=== PATIENT | female | born 1950 | race Caucasian/White ===

== ENCOUNTER 2021-01-15 11:33 | Emergency (ER) | payer MEDICARE, SELFPAY ==
[2021-01-15 11:59] VITALS: BP 136/78; PULSE 73; RESP 18; TEMP 36.6; O2SAT 96; BMI 35.7
--- NOTE | 2021-01-15 13:58 | ED.ANXIETY ---
HPI - Anxiety General Chief Complaint: Anxiety Stated Complaint: med reaction Time Seen by Provider: 01/15/21 13:04 Source: patient Mode of arrival: ambulatory Limitations: no limitations History of Present Illness HPI narrative: Patient presents to ED for severe anxiety and insomnia. Patient states he is severely anxious because she was placed on Suboxone for the past 5 weeks due to years of opiate dependence due to chronic pain management with narcotics. Patient states for the past 5 weeks every time she takes Suboxone she feels nauseous and makes him more anxious. Patient states she is scared to go back home to be alone. Patient admits to history of severe anxiety. Related Data Allergies Allergy/AdvReac Type Severity Reaction Status Date / Time alendronate sodium [Fosamax] AdvReac Unknown increased Verified 09/28/16 00:00 pain antidepressants Allergy Unknown N/V Uncoded 09/28/16 00:00 Mobic Allergy Unknown eye pain Uncoded 09/28/16 00:00 Review of Systems Review of Systems: Yes all other systems are reviewed and are negative Constitutional: Constitutional: Reports as per HPI and Reports no additional constitutional complaints Eyes: Eyes: Reports as per HPI and Reports no additional eye complaints ENT: Reports system reviewed and no additional complaints, except as documented and Reports as per HPI Cardiovascular: Cardiovascular: Reports as per HPI and Reports no additional cardiovascular complaints Respiratory: Respiratory: Reports as per HPI and Reports no additional respiratory complaints Gastrointestinal: Gastrointestinal: Reports as per HPI and Reports no additional gastrointestinal complaints Genitourinary: Genitourinary: Reports no additional female genitourinary complaints and Reports as per HPI Musculoskeletal: Musculoskeletal: Reports no additional musculoskeletal complaints and Reports as per HPI Integumentary/Breasts: Skin/Breast: Reports system reviewed and no additional complaints, except as docu and Reports as per HPI Neurologic: Reports system reviewed and no additional complaints, except as documented and Reports as per HPI Psychiatric: Psychiatric: Reports no additional psychiatric complaints and Reports as per HPI Comments: Anxiety PMFSH Past Medical History Medical History (Updated 01/15/21 @ 16:57 by JULY Mcdowell) Arthritis HLD (hyperlipidemia) HTN (hypertension) Muscle spasm of back Scoliosis Spinal arthritis Spinal stenosis Surgical History (Updated 01/15/21 @ 12:03 by Enrico Godinez) H/O spinal fusion Social History Social History Advance Directives: Yes Advance Directives Information Provided: No Advance Directives on File: No Physical Exam Vital Signs: Vital Signs: Last Vital Signs Temp 98.5 F 01/15/21 15:40 Pulse 76 01/15/21 15:40 Resp 16 01/15/21 15:40 BP 142/78 H 01/15/21 15:40 Pulse Ox 97 01/15/21 15:40 Body Mass Index 35.7 Const: General: cooperative, healthy appearing, comfortable, no acute distress, well developed, alert and awake Orientation/consciousness: patient oriented x3 HENMT: Head: Yes normal to inspection, Yes No palpable skull fracture present, Yes normocephalic and Yes atraumatic Eyes: General: appearance normal, both eyes and all related structures Neck: Neck: Yes normal visual inspection, Yes full ROM, Yes no lymphadenopathy, Yes no meningeal signs, Yes trachea midline, Yes supple and No tender Chest: Chest palpation & inspection: normal inspection of the chest and normal palpation of entire chest wall Resp: Effort & Inspection: normal respiratory effort and able to speak in complete sentences Auscultation: clear to auscultation bilaterally Cardio: Jugular venous distension: no JVD Heart sounds: S1 normal heart sound present and S2 normal heart sound present GI: Inspection: Yes normal to inspection and No abdominal wall ecchymosis Palpation (GI): Soft to palpation, not firm, nontender, no guarding and not rigid : General: No CVA tenderness and Yes no CVA tenderness Back/Spine/Pelvis: Back: no CVA tenderness, No CVA tenderness and No back tenderness Skin: General skin exam: no rashes or lesions noted Neuro: Other: . Negative facial droop. Negative slurred speech. Negative pronator drift. All extremities equal strength 5+. [id number] and rapid hand movement intact. Negative Romberg General: patient oriented x3, gait normal, tone normal, no meningeal signs and CN's II-XI intact bilaterally Cranial nerves: Yes CN's II-XII intact bilaterally Extrem: General: Yes normal to inspection and Yes full ROM Psych: Other: Extremely anxious Appearance: grossly normal and well kempt Course Course Course Narrative: Food to baseline medical evaluation. Will contact [facility] steam turbine operator and [place] the professional athletes coach will evaluate patient Reevaluation(s) Reevaluation #1: EKG negative for STEMI. Troponin negative. UA negative for urinary tract infection. Negative for any neuro deficits. Patient does not need CT scan. Patient has normal gait. Care team consulted Donal states patient could be discharged and will refer her to partial hospitalization. 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 Patient will likely be discharged and states that she has a safe plan for her discharge. Patient states her children will peanut picker and will be staying with her. Patient denies any physical complaints. Time: 16:46 MDM - Anxiety MDM Narrative Medical decision making narrative: Anxiety. Lab Data Result diagrams: 01/15/21 14:06 01/15/21 14:06 Labs: Lab Results 01/15/21 01/15/21 01/15/21 Range/Units 14:06 14:06 14:06 WBC 6.5 (4.8-10.8) X10*3/uL RBC 4.57 (4.20-5.50) X10*6/uL Hgb 13.4 (12.0-16.0) g/dl Hct 41.1 (37-47) % MCV 89.9 (80-98) fL MCH 29.3 (27.0-33.0) pg MCHC 32.6 (31.0-35.0) g/dl RDW 11.9 (11.0-16.0) % Plt Count 284 (160-400) X10*3/uL MPV 9.7 (9.4-12.3) fL Immature Gran % (Auto) 0.3 (0.0-0.4) % Neut % (Auto) 64.9 (45-73) % Lymph % (Auto) 25.2 (20-40) % [place] % (Auto) 8.0 (2-11) % Eos % (Auto) 1.1 (0-4) % Baso % (Auto) 0.5 (0-2) % Lymph # (Auto) 1.7 (1.2-4.9) X10*3/uL [place] # (Auto) 0.5 (0.1-1.2) X10*3/uL Eos # (Auto) 0.1 (0.0-0.4) X10*3/uL Baso # (Auto) 0.0 (0.0-0.2) X10*3/uL Abs Immat Gran (auto) 0.02 (0.00-0.03) X10*3/uL Absolute Neuts (auto) 4.3 (2.0-8.3) X10*3/uL Absolute Nucleated RBC 0.000 (0.0-0.012) X10*3/uL Nucleated RBC % (auto) 0.0 (0.0-0.2) /100WBC PT (9.9-13.0) SEC INR (0.9-1.1) APTT (24.1-38.0) SEC Sodium 139 (135-145) mmol/L Potassium 4.3 (3.3-5.1) mmol/L Chloride 104 (96-108) mmol/L Carbon Dioxide 28 (22-29) mmol/L Anion Gap 11 L (12-20) BUN 12 (9-16) mg/dL Creatinine 0.69 (0.5-1.4) mg/dL Estim Creat Clear Calc 73.4 Estimated GFR > 60 Random Glucose 101 (60-115) mg/dL Calcium 8.9 (8.4-10.2) mg/dL Total Bilirubin 0.7 0.7 (0.0-1.0) mg/dL Direct Bilirubin 0.3 (0.0-0.5) mg/dL AST 25 25 (5-31) U/L ALT 29 29 (0-31) U/L Alkaline Phosphatase 108 106 (39-117) U/L Troponin I High Sens (<3.5-17.0) ng/L Total Protein 6.1 L 6.1 L (6.5-8.0) g/dL Albumin 4.0 4.0 (3.5-5.0) g/dL Urine Color Urine Appearance Urine pH (5.0-8.0) Ur Specific [place] (1.005-1.025) Urine Protein (NEG-TRACE) MG/DL Urine Glucose (UA) (NEG) MG/DL Urine Ketones (NEG) MG/DL Urine Blood (NEG) Urine Nitrite (NEG) Ur Leukocyte Esterase (NEG) Urine Opiates Screen (Not Detect) Ur Barbiturates Screen (Not Detect) Ur Phencyclidine Scrn (Not Detect) Ur Amphetamines Screen (Not Detect) U Benzodiazepines Scrn (Not Detect) Urine Cocaine Screen (Not Detect) U Marijuana (THC) Screen (Not Detect) 08/08/21 08/08/21 08/08/21 Range/Units 14:09 14:09 16:07 WBC (4.8-10.8) X10*3/uL RBC (4.20-5.50) X10*6/uL Hgb (12.0-16.0) g/dl Hct (37-47) % MCV (80-98) fL MCH (27.0-33.0) pg MCHC (31.0-35.0) g/dl RDW (11.0-16.0) % Plt Count (160-400) X10*3/uL MPV (9.4-12.3) fL Immature Gran % (Auto) (0.0-0.4) % Neut % (Auto) (45-73) % Lymph % (Auto) (20-40) % [place] % (Auto) (2-11) % Eos % (Auto) (0-4) % Baso % (Auto) (0-2) % Lymph # (Auto) (1.2-4.9) X10*3/uL [place] # (Auto) (0.1-1.2) X10*3/uL Eos # (Auto) (0.0-0.4) X10*3/uL Baso # (Auto) (0.0-0.2) X10*3/uL Abs Immat Gran (auto) (0.00-0.03) X10*3/uL Absolute Neuts (auto) (2.0-8.3) X10*3/uL Absolute Nucleated RBC (0.0-0.012) X10*3/uL Nucleated RBC % (auto) (0.0-0.2) /100WBC PT 11.2 (9.9-13.0) SEC INR 1.0 (0.9-1.1) APTT 35.0 (24.1-38.0) SEC Sodium (135-145) mmol/L Potassium (3.3-5.1) mmol/L Chloride (96-108) mmol/L Carbon Dioxide (22-29) mmol/L Anion Gap (12-20) BUN (9-16) mg/dL Creatinine (0.5-1.4) mg/dL Estim Creat Clear Calc Estimated GFR Random Glucose (60-115) mg/dL Calcium (8.4-10.2) mg/dL Total Bilirubin (0.0-1.0) mg/dL Direct Bilirubin (0.0-0.5) mg/dL AST (5-31) U/L ALT (0-31) U/L Alkaline Phosphatase (39-117) U/L Troponin I High Sens < 3.5 (<3.5-17.0) ng/L Total Protein (6.5-8.0) g/dL Albumin (3.5-5.0) g/dL Urine Color Urine Appearance Urine pH (5.0-8.0) Ur Specific [place] (1.005-1.025) Urine Protein (NEG-TRACE) MG/DL Urine Glucose (UA) (NEG) MG/DL Urine Ketones (NEG) MG/DL Urine Blood (NEG) Urine Nitrite (NEG) Ur Leukocyte Esterase (NEG) Urine Opiates Screen Not Detected (Not Detect) Ur Barbiturates Screen Not Detected (Not Detect) Ur Phencyclidine Scrn Not Detected (Not Detect) Ur Amphetamines Screen Not Detected (Not Detect) U Benzodiazepines Scrn Not Detected (Not Detect) Urine Cocaine Screen Not Detected (Not Detect) U Marijuana (THC) Screen Not Detected (Not Detect) 01/15/21 Range/Units 16:07 WBC (4.8-10.8) X10*3/uL RBC (4.20-5.50) X10*6/uL Hgb (12.0-16.0) g/dl Hct (37-47) % MCV (80-98) fL MCH (27.0-33.0) pg MCHC (31.0-35.0) g/dl RDW (11.0-16.0) % Plt Count (160-400) X10*3/uL MPV (9.4-12.3) fL Immature Gran % (Auto) (0.0-0.4) % Neut % (Auto) (45-73) % Lymph % (Auto) (20-40) % [place] % (Auto) (2-11) % Eos % (Auto) (0-4) % Baso % (Auto) (0-2) % Lymph # (Auto) (1.2-4.9) X10*3/uL [place] # (Auto) (0.1-1.2) X10*3/uL Eos # (Auto) (0.0-0.4) X10*3/uL Baso # (Auto) (0.0-0.2) X10*3/uL Abs Immat Gran (auto) (0.00-0.03) X10*3/uL Absolute Neuts (auto) (2.0-8.3) X10*3/uL Absolute Nucleated RBC (0.0-0.012) X10*3/uL Nucleated RBC % (auto) (0.0-0.2) /100WBC PT (9.9-13.0) SEC INR (0.9-1.1) APTT (24.1-38.0) SEC Sodium (135-145) mmol/L Potassium (3.3-5.1) mmol/L Chloride (96-108) mmol/L Carbon Dioxide (22-29) mmol/L Anion Gap (12-20) BUN (9-16) mg/dL Creatinine (0.5-1.4) mg/dL Estim Creat Clear Calc Estimated GFR Random Glucose (60-115) mg/dL Calcium (8.4-10.2) mg/dL Total Bilirubin (0.0-1.0) mg/dL Direct Bilirubin (0.0-0.5) mg/dL AST (5-31) U/L ALT (0-31) U/L Alkaline Phosphatase (39-117) U/L Troponin I High Sens (<3.5-17.0) ng/L Total Protein (6.5-8.0) g/dL Albumin (3.5-5.0) g/dL Urine Color YELLOW Urine Appearance CLEAR Urine pH 6.0 (5.0-8.0) Ur Specific [place] 1.020 (1.005-1.025) Urine Protein NEG (NEG-TRACE) MG/DL Urine Glucose (UA) NEG (NEG) MG/DL Urine Ketones 15 (NEG) MG/DL Urine Blood NEG (NEG) Urine Nitrite NEG (NEG) Ur Leukocyte Esterase NEG (NEG) Urine Opiates Screen (Not Detect) Ur Barbiturates Screen (Not Detect) Ur Phencyclidine Scrn (Not Detect) Ur Amphetamines Screen (Not Detect) U Benzodiazepines Scrn (Not Detect) Urine Cocaine Screen (Not Detect) U Marijuana (THC) Screen (Not Detect) ECG Data Interpretation: Normal sinus rhythm. Ventricular rate 68. Pr interval 194. QRS 82. QTC 412. Negative STEMI Discharge Plan Discharge Clinical Impression: Acute anxiety Patient Disposition: Home, Self-Care Instructions: Adverse Drug Reaction (ED), Anxiety (ED) Additional Instructions: Your blood work EKG came back normal. Urine was negative for infection. Please follow-up with referrals you are given to by professional athletes coach [place] and care team michelle Mansfield for partial hospitalization and methadone clinic. Return to the ED for any concerning symptoms. please follow-up with PCP Interventions: ED Discharge Assessment Last Done: 01/15/21 17:09 Discharge Date/Time: 01/15/21 17:09 Print Language: Lithuanian
--- NOTE | 2021-01-15 14:00 | ECG_ITS ---
Test Reason : ANXIETY Blood Pressure : / mmHG Vent. Rate : 068 BPM Atrial Rate : 068 BPM P-R Int : 194 ms QRS Dur : 082 ms QT Int : 388 ms P-R-T Axes : 030 003 023 degrees QTc Int : 412 ms Normal sinus rhythm Normal ECG No previous ECGs available Referred By: Ariel Douglas Electronically Signed By:Haider Tse
[2021-01-15 14:12] LABS: Basophils Percent Auto 0.5 % (0-2); Eosinophils Absolute Auto 0.1 X10*3/uL (0.0-0.4); Eosinophils Percent Auto 1.1 % (0-4); Hematocrit 41.1 % (37-47); Hemoglobin 13.4 g/dl (12.0-16.0); Imm Gran Abs Auto 0.02 X10*3/uL (0.00-0.03); Imm Gran Pct Auto 0.3 % (0.0-0.4); Lymphocytes Absolute Auto 1.7 X10*3/uL (1.2-4.9); Lymphocytes Percent Auto 25.2 % (20-40); MANUAL DIFF FLAG NO; Mean Corpuscular HGB Conc 32.6 g/dl (31.0-35.0); Mean Corpuscular Hemoglobin 29.3 pg (27.0-33.0); Mean Corpuscular Volume 89.9 fL (80-98); Mean Platelet Volume 9.7 fL (9.4-12.3); Monocytes Absolute Auto 0.5 X10*3/uL (0.1-1.2); Neutrophils Absolute Auto 4.3 X10*3/uL (2.0-8.3); Neutrophils Percent Auto 64.9 % (45-73); Platelet Count 284 X10*3/uL (160-400); Red Blood Count 4.57 X10*6/uL (4.20-5.50); Red Cell Distribution Width 11.9 % (11.0-16.0); White Blood Count 6.5 X10*3/uL (4.8-10.8)
[2021-01-15 14:35] LABS: Alanine Aminotransferase 29 U/L (0-31); Alkaline Phosphatase 106 U/L (39-117); Aspartate Amino Transferase 25 U/L (5-31); Bilirubin Direct 0.3 mg/dL (0.0-0.5); Bilirubin Total 0.7 mg/dL (0.0-1.0); Total Protein 6.1 g/dL (6.5-8.0)
[2021-01-15 14:37] LABS: Alanine Aminotransferase 29 U/L (0-31); Alkaline Phosphatase 108 U/L (39-117); Anion Gap 11 (12-20); Aspartate Amino Transferase 25 U/L (5-31); Bilirubin Total 0.7 mg/dL (0.0-1.0); Blood Urea Nitrogen 12 mg/dL (9-16); Calcium 8.9 mg/dL (8.4-10.2); Carbon Dioxide 28 mmol/L (22-29); Chloride 104 mmol/L (96-108); Creatinine Clr Calc Pharmacy 73.4; Estimated Glomerular Filt Rate > 60; Glucose Random 101 mg/dL (60-115); Potassium 4.3 mmol/L (3.3-5.1); Sodium 139 mmol/L (135-145); Total Protein 6.1 g/dL (6.5-8.0)
--- NOTE | 2021-01-15 14:40 | MHC.CARE ---
4218 - Met with pt at request from JULY Duvall.? Pt reports anxiety, denies HI, SI, AVH and delusions.? Pt reports a previous Anxiety d/o diagnosis.? Pt is waiting for a counselor and prescriber from [facility] to become available.? Pt lives alone, having lost her to a brain injury 6 years ago.? He son visits frequently and will spend nights there on occasion.? Pt is also reporting difficulty sleeping that she attributes to the anxiety.? Patient reports she is very anxious because she was placed on Suboxone? and has been taking it for about 5 weeks, this is due to an opiate addiction that she developed ?due to years managing chronic back pain with prescribed narcotics.? Patient states when she takes Suboxone she feels nauseous and her anxiety becomes elevated.? Pt expressed concern with returning home as she lives alone.? It is unclear whether the anxiety is the result of the suboxone or if she has worry regarding taking suboxone. ?Pt does not require in patient care, she does not meet the criteria.? CARE Team will put a referral in to the [facility] and will refer pt to the Recovery Team as pt has questions and concerns regarding suboxone and treatment related to addiction.? This disposition was discussed with and agreed upon by ED provider Apolinar Duvall, the patient, and Recovery Team.
[2021-01-15 14:47] LABS: Prothrombin Time 11.2 SEC (9.9-13.0)
--- NOTE | 2021-01-15 14:50 | MHC.CARE ---
Fax referral to [facility] successfully sent 01/15/21@14:40
[2021-01-15 15:05] LABS: Troponin-I High Sensitivity < 3.5 ng/L (<3.5-17.0)
--- NOTE | 2021-01-15 15:21 | MHC.RECOVSUP ---
Recovery Support note: Patient is a 70 year old Bolivian speaking female who presented to [facility] due to anxiety. Patient reports negative side effects related to her Suboxone medication. Patient reports she was prescribed pain medication due to chronic back pain and that her provider discontinued her pain medication and referred her to a Suboxone program. Patient reports she is prescribed 4mg of Suboxone however cuts it down to 2-3 mg. Patient reports she does not feel like herself while taking it and she wants to get off of it as soon as possible. Patient has been referred to [facility] in [place] and reports she has an intake with plans to begin dosing the following week. Discussed Suboxone and methadone with patient and provided education. Discussed the [facility] in [place] as an alternative option that may be able to get patient started sooner. Patient plans to contact the tomorrow and has completed a release of information for her information to be sent to this clinic. Patient reports she does not feel safe alone due to the anxiety however she reports her family is supportive and she may be able to have her son come over for the night or she may go over her brother's house. Discussed case with patient's ED provider and CARE Team.
[2021-01-15 15:40] VITALS: BP 142/78; PULSE 76; RESP 16; TEMP 36.9; O2SAT 97
[2021-01-15 16:14] LABS: Appearance Urine CLEAR; Color Urine YELLOW; Glucose Urine UA NEG (NEG); Leukocyte Esterase Urine NEG (NEG); Nitrite Urine NEG (NEG); Urine Blood NEG (NEG); Urine Ketones 15 MG/DL (NEG); Urine Protein NEG (NEG-TRACE)
[2021-01-15 16:34] LABS: Amphetamine Screen Urine Not Detected (Not Detect); Barbiturates, Urine Not Detected (Not Detect); Benzodiazepines Screen Urine Not Detected (Not Detect); Cannabinoid Screen Urine Not Detected (Not Detect); Cocaine Screen Urine Not Detected (Not Detect); Opiate Screen Urine Not Detected (Not Detect); Phencyclidine Screen Urine Not Detected (Not Detect)
== END 2021-01-15 17:09 | disposition home or self-care (01) ==
PROVIDERS: Physician Assistant; Emergency Provider Emergency Medicine Emergency Medical Services; PCP Hospitalist
DX: F41.9 Anxiety disorder, unspecified (principal); I10 Essential (primary) hypertension; F11.20 Opioid dependence, uncomplicated
CPT/HCPCS: 36415; 80053; 80076; 80307; 81003; 82248; 84484; 85025; 85610; 85730; 93005; 99283; 99284

== ENCOUNTER 2021-01-17 08:06 | Emergency (ER) | payer MEDICARE, SELFPAY ==
[2021-01-17 09:21] VITALS: BP 149/100; PULSE 72; RESP 18; TEMP 36.1; O2SAT 99; BMI 35.2
--- NOTE | 2021-01-17 11:33 | ED.ANXIETY ---
HPI - Anxiety General Chief Complaint: Anxiety Stated Complaint: Anxiety Time Seen by Provider: 01/17/21 10:23 Source: patient Mode of arrival: ambulatory Limitations: no limitations History of Present Illness HPI narrative: 70-year-old female who presents emergency department for evaluation anxiety, insomnia and fear of being alone. The patient states that she has a history opiate dependence secondary to prescribed opiates for chronic pain. States the 5 weeks prior she was weaned off her oxycodone and tramadol and started on Suboxone. She states that since starting Suboxone she has felt extremely anxious and is currently being weaned off Suboxone food ordered to be changed over to methadone. She states however her anxiety has gotten out of control. She states that she is unable to function. She states she cannot stay at home alone secondary to fever. She states that she has severe insomnia, she wakes up 2-3 times a night and only sleeps for 2-3 hours the time. She states she has lost her appetite and has lost 15 lb. The patient was seen in the emergency department 2 days prior on 01/15/2021 and was evaluated by the care team. Patient was referred to a methadone clinic. She states that she has an appointment tomorrow at the methadone clinic. Patient states that her doctor did prescribed buspirone 10 mg twice a day for anxiety but this is not helping. She states that she return to the emergency department because she would like to pursue some type of inpatient treatment program because she is afraid of being alone and that her anxiety is out of control. Related Data Allergies Allergy/AdvReac Type Severity Reaction Status Date / Time alendronate sodium [Fosamax] AdvReac Unknown increased Verified 09/28/16 00:00 pain antidepressants Allergy Unknown N/V Uncoded 09/28/16 00:00 Mobic Allergy Unknown eye pain Uncoded 09/28/16 00:00 Review of Systems Review of Systems: Yes all other systems are reviewed and are negative [facility] Past Medical History [facility] Narrative: Past medical history: Chronic back pain, opiate dependent currently on Suboxone, see below for further PMH. Surgical history: Spinal fusion. Social history: She denies tobacco, alcohol and drug use. Medical History Arthritis HLD (hyperlipidemia) HTN (hypertension) Muscle spasm of back Scoliosis Spinal arthritis Spinal stenosis Surgical History H/O spinal fusion Social History Social History Alcohol intake: never Patient Tobacco Use Status: Never used Tobacco Substance Use Type: Opiates Advance Directives: Yes Advance Directives Information Provided: No Advance Directives on File: No Physical Exam Vital Signs: Vital Signs: Last Vital Signs Temp 99 F 01/17/21 12:48 Pulse 69 01/17/21 12:48 Resp 16 01/17/21 12:48 BP 118/62 01/17/21 12:48 Pulse Ox 96 01/17/21 12:48 Body Mass Index 35.2 Const: General: cooperative and no acute distress Orientation/consciousness: oriented to person and oriented to place Limitations: no limitations HENMT: Head: Yes normal to inspection, Yes normocephalic and Yes atraumatic Ears: external ears normal General nose exam: Normal external nose present Face and sinus: Yes normal facial exam Mouth: Normal oral and palatal mucosa present Throat: Yes posterior oropharynx normal Eyes: General: appearance normal, both eyes and all related structures Pupils: Equal, round and reactive pupils present Neck: Neck: Yes normal visual inspection, Yes no lymphadenopathy, Yes trachea midline and Yes supple Chest: Chest palpation & inspection: normal inspection of the chest and normal palpation of entire chest wall Resp: Effort & Inspection: normal respiratory effort and able to speak in complete sentences Auscultation: clear to auscultation bilaterally Cardio: Rate: regular rate Rhythm: regular rhythm Heart sounds: S1 normal heart sound present, S2 normal heart sound present and no murmurs GI: Inspection: Yes normal to inspection Palpation (GI): Soft to palpation, nontender and no guarding Auscultation: normal bowel sounds : General: Yes no CVA tenderness Back/Spine/Pelvis: Back: no CVA tenderness Skin: General skin exam: no rashes or lesions noted Neuro: General: oriented to person and oriented to place Cranial nerves: Yes CN's II-XII intact bilaterally and Yes Equal, round and reactive pupils present Cognition (Neuro): normal cognition Motor exam (neuro): 5/5 motor strength present throughout Extrem: General: Yes normal to inspection Psych: Appearance: grossly normal Speech and movement: Normal speech and movement present Affect: Anxious affect present Attitude: cooperative Thought process: Normal thought process present Thought content: Normal thought content present Course Course Course Narrative: 70-year-old female with history chronic back pain, opiate dependent, weaned off oxycodone and tramadol 5 weeks prior and was treated with Suboxone. Patient states that Suboxone has made her extremely anxious and she is having insomnia associated with the Suboxone. She was seen 2 days prior by our care team and she is scheduled to follow-up with a methadone program tomorrow. Blood pressure of 149/100 otherwise were unremarkable. Patient's physical examination did reveal that she was extremely anxious but otherwise was not in distress. The patient was given buspirone 10 mg orally since this is medication she takes at home and she missed a dose today. I will consult the care team see if there is any treatment options for this patient. 1343: The patient was seen by our care team. The patient was reassured that she will be seen tomorrow at the methadone clinic and most likely be started on methadone. The patient was discharged home. The patient was given verbal and printed instructions prior to discharge. The patient was given verbal and printed instructions prior to discharge. The patient was advised to follow-up with her PCP in 2 days and to return to the emergency department if her symptoms get worse or if she develops any new symptoms that are concerning to her. Discharge Plan Discharge Clinical Impression: Acute anxiety Patient Disposition: Home, Self-Care Instructions: Anxiety (ED) Additional Instructions: Continue taking medications as prescribed by your doctor. Keep your appointment tomorrow with the methadone clinic. Follow-up with your doctor in 2 days. Please return to the emergency department if your symptoms get worse or if you develop any symptoms that are concerning to you.
[2021-01-17] MEDS: busPIRone HCl 10 MG TABLET PO (12:04)
--- NOTE | 2021-01-17 12:11 | PC.NURSE ---
Patient medicated per order, patient requested lunch- was given a snack until lunch is available
--- NOTE | 2021-01-17 12:30 | MHC.RECOVRN ---
Met with pt to discuss transition from Suboxone to methadone. Pt anxious to begin methadone due to transportation issues as well as living alone and starting a new medication. Pt educated regarding methadone for OUD as well as methadone for pain management. Discussed pain management options as opposed to OTP. Pt interested in looking into all avenues moving forward. Case discussed with CARE Team as well as Lilibeth Oro APRN.
[2021-01-17 12:48] VITALS: BP 118/62; PULSE 69; RESP 16; TEMP 37.2; O2SAT 96
--- NOTE | 2021-01-17 13:39 | PC.NURSE ---
david- psychiatric tech spoke with the patient, she states the patient will discharge to home soon, pt has an appt tomm to start in the methadone program- she asked that we discharge her with things like a copy of her ekg so she can hand carry it to the program as the patient has anxiety that the paperwork wont make it there for her appt tomm.
== END 2021-01-17 13:58 | disposition home or self-care (01) ==
PROVIDERS: Emergency Provider Emergency Medicine Emergency Medical Services; PCP Hospitalist
DX: F41.9 Anxiety disorder, unspecified (principal); G47.00 Insomnia, unspecified; F11.20 Opioid dependence, uncomplicated; Z79.899 Other long term (current) drug therapy
CPT/HCPCS: 99284

== ENCOUNTER → 2021-01-27 10:03 | Outpatient (BNVA) | payer MEDICARE, SELFPAY | PROVIDERS: Visit Provider Internal Medicine | DX: F11.20 Opioid dependence, uncomplicated (principal); M54.9 Dorsalgia, unspecified | CPT/HCPCS: 80305; 99202 ==

== ENCOUNTER 2021-02-02 18:31 | Inpatient (IN) | payer MEDICARE, SELFPAY ==
--- NOTE | 2021-02-02 | ECG_ITS ---
Test Reason : CP Blood Pressure : / mmHG Vent. Rate : 081 BPM Atrial Rate : 081 BPM P-R Int : 208 ms QRS Dur : 076 ms QT Int : 372 ms P-R-T Axes : 040 002 027 degrees QTc Int : 432 ms Normal sinus rhythm Normal ECG When compared with ECG of 15-JAN-2021 14:25, No significant change was found Referred By: Victoria Arnold Electronically Signed By:INDER OJEDA
[2021-02-02 18:41] VITALS: PULSE 82; RESP 16; TEMP 37.5; O2SAT 93; BMI 34.4
--- NOTE | 2021-02-02 21:43 | ED_ITS ---
HPI - Anxiety General Chief Complaint: Anxiety Stated Complaint: anxiety Time Seen by Provider: 02/02/21 21:08 Source: patient Mode of arrival: ambulatory Limitations: no limitations History of Present Illness HPI narrative: Patient comes emergency room complaining of chest pain and anxiety. Patient states that over the last 2 days, her anxiety has been getting worse. Patient takes buspirone, her dose was recently increased. Patient states that she still has anxiety. Patient states that earlier today she had 1- 2 minutes of chest pain and self-resolved. At this time she has no chest pain. Related Data Home Medications Medication Instructions Recorded Confirmed buprenorphine 2 mg-naloxone 0.5 mg 1 film SUBLINGUAL BID 02/02/21 02/02/21 sublingual film buspirone 15 mg tablet 1 tab PO BID 02/02/21 02/02/21 mirtazapine 15 mg tablet 1 tab PO BEDTIME 02/02/21 02/02/21 Allergies Allergy/AdvReac Type Severity Reaction Status Date / Time alendronate sodium [Fosamax] AdvReac Unknown increased Verified 09/28/16 00:00 pain antidepressants Allergy Unknown N/V Uncoded 09/28/16 00:00 Mobic Allergy Unknown eye pain Uncoded 09/28/16 00:00 Review of Systems Review of Systems: Constitutional : No Weight loss, No Fever, No Chills, No Night Sweats, No Fatigue, No Malaise ENT/Mouth : No Hearing loss, No Ear Pain, No Nasal Congestion, No Sinus Pain, No Hoarseness, No sore throat, No Rhinorrhea, No Swallowing Difficulty Eyes: No Eye Pain, No Swelling, No Redness, No Foreign Body, No Discharge, No Vision Changes Cardiovascular : 1-2 minutes of chest pain resolved. No SOB, No Dyspnea on Exertion, No Orthopnea, No Edema, No Palpitations Respiratory : No Cough, No Sputum, No Wheezing, No Smoke Exposure, No Dyspnea Gastrointestinal : No Nausea, No Vomiting, No Diarrhea, No Constipation, No abdominal Pain, No Hematochezia, No Melena Genitourinary : no irregular bleeding, No Dysuria, No Urinary Frequency, No Hematuria, No Urinary Incontinence, No Urgency, No Flank Pain, No Urinary Flow Changes, No Hesitancy Musculoskeletal : No joint pain, No Myalgias, No Joint Swelling Skin : No Skin Lesions, No rash Neuro : No Weakness, No Numbness, No Paresthesias, No Loss of Consciousness, No Dizziness, No Headache Psych : complaining of anxiety and depression, No SI/HI/AH/VH, No Social Issues, Heme/Lymph: No Bruising, No Bleeding,No Lymphadenopathy Endocrine : No Polyuria, No Polydipsia, No Temperature Intolerance [facility] Past Medical History Medical History (Updated 02/02/21 @ 21:52 by Victoria Arnold MD) Anxiety Arthritis HLD (hyperlipidemia) HTN (hypertension) Muscle spasm of back Opioid use disorder Scoliosis Spinal arthritis Spinal stenosis Surgical History H/O spinal fusion Social History Social History Alcohol intake: never Patient Tobacco Use Status: Never used Tobacco Substance Use Type: Opiates Advance Directives: No Advance Directives Information Provided: No Physical Exam Vital Signs: Vital Signs: Last Vital Signs Temp 99.5 F 02/02/21 18:41 Pulse 82 02/02/21 18:41 Resp 16 02/02/21 18:41 Pulse Ox 93 02/02/21 18:41 Body Mass Index 34.4 Const: Other: Appearance: Alert. Oriented X3. No acute distress. Eyes: Pupils equal, round and reactive to light. ENT: Pharynx normal. Neck: Normal inspection. Neck supple. No lymph nodes noted. No crepitus CVS: Normal heart rate and rhythm. Pulses normal. Normal S1 and S2 Respiratory: No respiratory distress. Breath sounds normal. No Wheezing. No rales Abdomen: Soft and nontender. No rigidity. No distention. good BS x4 Skin: Skin warm and dry. Normal skin color. Normal skin turgor. Extremities: No lower extremity edema. No lower extremity edema. No Lacerations. No Rash Neuro: Oriented X 3. No motor deficit. No sensory deficit. Moving all extermities. No slurred speech. Renal to 12 grossly intact Psych: Calm, anxious, operative Course Course Course Narrative: Patient states she would like to be discharged now, patient states that she is very anxious that there are a lot of COVID patients in the hospital. Patient denies suicidal homicidal ideation. Patient does not want to wait for the troponin level to return. For the EKG either. Patient states that being here in the emergency room is making her more anxious. Patient is driving herself. Patient states that she has an appointment tomorrow at [facility] with Dr. Evangelista . [facility] consult offered, patient declined. Patient changed her mind and then decided to be evaluated by [facility] for anxiety and depression N consult pending. Physician of the patient started at 23:25 Patient was evaluated by [facility], at this time, patient states that she does not want to be admitted. Patient was recently evaluated at [facility]. Recommendation: Psych evaluation in the morning, likely discharge Sign out given to Dr. Brandon [facility] - Anxiety Lab Data Result diagrams: 02/02/21 21:51 02/02/21 21:51 Labs: Lab Results 02/02/21 02/02/21 02/02/21 Range/Units 21:51 21:51 21:51 WBC 5.5 (4.8-10.8) X10*3/uL RBC 4.66 (4.20-5.50) X10*6/uL Hgb 13.5 (12.0-16.0) g/dl Hct 41.8 (37-47) % MCV 89.7 (80-98) fL MCH 29.0 (27.0-33.0) pg MCHC 32.3 (31.0-35.0) g/dl RDW 12.2 (11.0-16.0) % Plt Count 234 (160-400) X10*3/uL MPV 9.6 (9.4-12.3) fL Immature Gran % (Auto) 0.4 (0.0-0.4) % Neut % (Auto) 54.4 (45-73) % Lymph % (Auto) 35.1 (20-40) % [place] % (Auto) 7.7 (2-11) % Eos % (Auto) 2.0 (0-4) % Baso % (Auto) 0.4 (0-2) % Lymph # (Auto) 1.9 (1.2-4.9) X10*3/uL [place] # (Auto) 0.4 (0.1-1.2) X10*3/uL Eos # (Auto) 0.1 (0.0-0.4) X10*3/uL Baso # (Auto) 0.0 (0.0-0.2) X10*3/uL Abs Immat Gran (auto) 0.02 (0.00-0.03) X10*3/uL Absolute Neuts (auto) 3.0 (2.0-8.3) X10*3/uL Absolute Nucleated RBC 0.000 (0.0-0.012) X10*3/uL Nucleated RBC % (auto) 0.0 (0.0-0.2) /100WBC Sodium 143 (135-145) mmol/L Potassium 3.9 (3.3-5.1) mmol/L Chloride 104 (96-108) mmol/L Carbon Dioxide 30 H (22-29) mmol/L Anion Gap 13 (12-20) BUN 13 (9-16) mg/dL Creatinine 0.73 (0.5-1.4) mg/dL Estim Creat Clear Calc 70.8 Estimated GFR > 60 Random Glucose 119 H (60-115) mg/dL Calcium 9.0 (8.4-10.2) mg/dL Troponin I High Sens < 3.5 (<3.5-17.0) ng/L Urine Color Urine Appearance Urine pH (5.0-8.0) Ur Specific [place] (1.005-1.025) Urine Protein (NEG-TRACE) MG/DL Urine Glucose (UA) (NEG) MG/DL Urine Ketones (NEG) MG/DL Urine Blood (NEG) Urine Nitrite (NEG) Ur Leukocyte Esterase (NEG) Urine RBC (0) /HPF Urine WBC (0-4) /HPF Ur Squamous Epith Cells /LPF Urine Bacteria /LPF Urine Mucus /LPF Urine Opiates Screen (Not Detect) Urine Fentanyl Screen (Not Detect) Ur Barbiturates Screen (Not Detect) Ur Phencyclidine Scrn (Not Detect) Ur Amphetamines Screen (Not Detect) U Benzodiazepines Scrn (Not Detect) Urine Cocaine Screen (Not Detect) U Marijuana (THC) Screen (Not Detect) COVID-19 ([facility]) (Negative) COVID-19 Clin Com 02/02/21 02/02/21 02/02/21 Range/Units 23:22 23:22 23:22 WBC (4.8-10.8) X10*3/uL RBC (4.20-5.50) X10*6/uL Hgb (12.0-16.0) g/dl Hct (37-47) % MCV (80-98) fL MCH (27.0-33.0) pg MCHC (31.0-35.0) g/dl RDW (11.0-16.0) % Plt Count (160-400) X10*3/uL MPV (9.4-12.3) fL Immature Gran % (Auto) (0.0-0.4) % Neut % (Auto) (45-73) % Lymph % (Auto) (20-40) % [place] % (Auto) (2-11) % Eos % (Auto) (0-4) % Baso % (Auto) (0-2) % Lymph # (Auto) (1.2-4.9) X10*3/uL [place] # (Auto) (0.1-1.2) X10*3/uL Eos # (Auto) (0.0-0.4) X10*3/uL Baso # (Auto) (0.0-0.2) X10*3/uL Abs Immat Gran (auto) (0.00-0.03) X10*3/uL Absolute Neuts (auto) (2.0-8.3) X10*3/uL Absolute Nucleated RBC (0.0-0.012) X10*3/uL Nucleated RBC % (auto) (0.0-0.2) /100WBC Sodium (135-145) mmol/L Potassium (3.3-5.1) mmol/L Chloride (96-108) mmol/L Carbon Dioxide (22-29) mmol/L Anion Gap (12-20) BUN (9-16) mg/dL Creatinine (0.5-1.4) mg/dL Estim Creat Clear Calc Estimated GFR Random Glucose (60-115) mg/dL Calcium (8.4-10.2) mg/dL Troponin I High Sens (<3.5-17.0) ng/L Urine Color YELLOW Urine Appearance CLEAR Urine pH 6.0 (5.0-8.0) Ur Specific [place] 1.025 (1.005-1.025) Urine Protein NEG (NEG-TRACE) MG/DL Urine Glucose (UA) NEG (NEG) MG/DL Urine Ketones NEG (NEG) MG/DL Urine Blood NEG (NEG) Urine Nitrite NEG (NEG) Ur Leukocyte Esterase NEG (NEG) Urine RBC 1-4 (0) /HPF Urine WBC 0-2 (0-4) /HPF Ur Squamous Epith Cells 1+ /LPF Urine Bacteria NONE /LPF Urine Mucus 4+ /LPF Urine Opiates Screen Not Detected (Not Detect) Urine Fentanyl Screen Not Detected (Not Detect) Ur Barbiturates Screen Not Detected (Not Detect) Ur Phencyclidine Scrn Not Detected (Not Detect) Ur Amphetamines Screen Not Detected (Not Detect) U Benzodiazepines Scrn Not Detected (Not Detect) Urine Cocaine Screen Not Detected (Not Detect) U Marijuana (THC) Screen Not Detected (Not Detect) COVID-19 ([facility]) Negative (Negative) COVID-19 Clin Com See Note Discharge Plan Discharge Clinical Impression: Acute anxiety Instructions: Anxiety (ED) Additional Instructions: Please follow-up with your primary care physician tomorrow. If you have any worsening or new symptoms, please return to the emergency room or call 911 Prescriptions: No Action buspirone 15 mg tablet 1 tab PO BID RF: 0 buprenorphine-naloxone 2-0.5 mg film 1 film sublingual BID RF: 0 mirtazapine 15 mg tablet 1 tab PO BEDTIME RF: 0
[2021-02-02 21:59] LABS: MANUAL DIFF FLAG NO
[2021-02-02 22:00] LABS: Basophils Percent Auto 0.4 % (0-2); Eosinophils Absolute Auto 0.1 X10*3/uL (0.0-0.4); Hematocrit 41.8 % (37-47); Hemoglobin 13.5 g/dl (12.0-16.0); Imm Gran Abs Auto 0.02 X10*3/uL (0.00-0.03); Imm Gran Pct Auto 0.4 % (0.0-0.4); Lymphocytes Absolute Auto 1.9 X10*3/uL (1.2-4.9); Lymphocytes Percent Auto 35.1 % (20-40); Mean Corpuscular HGB Conc 32.3 g/dl (31.0-35.0); Mean Corpuscular Volume 89.7 fL (80-98); Mean Platelet Volume 9.6 fL (9.4-12.3); Monocytes Absolute Auto 0.4 X10*3/uL (0.1-1.2); Monocytes Percent Auto 7.7 % (2-11); Neutrophils Percent Auto 54.4 % (45-73); Platelet Count 234 X10*3/uL (160-400); Red Blood Count 4.66 X10*6/uL (4.20-5.50); Red Cell Distribution Width 12.2 % (11.0-16.0); White Blood Count 5.5 X10*3/uL (4.8-10.8)
--- NOTE | 2021-02-02 22:14 | PC.NURSE ---
PT BECOMING INCREASINGLY ANXIOUS AND PARANOID STATING I JUST WANT TO GO HOME CONCERNED ABOUT COVID PATIENTS. THIS RN IN TO SPEAK WITH PT AND REASSURE HER. SPOKE WITH PT AT LENGTH CALMED CONCERNS AND OFFERED A ROOM IN THE POD FOR DECREASED STIMULATION AND QUIETER ENVIRONMENT. MD BLACK UPDATED.
[2021-02-02 22:21] LABS: Anion Gap 13 (12-20); Blood Urea Nitrogen 13 mg/dL (9-16); Carbon Dioxide 30 mmol/L (22-29); Chloride 104 mmol/L (96-108); Creatinine Clr Calc Pharmacy 70.8; Estimated Glomerular Filt Rate > 60; Glucose Random 119 mg/dL (60-115); Potassium 3.9 mmol/L (3.3-5.1); Sodium 143 mmol/L (135-145)
[2021-02-02 22:27] LABS: Troponin-I High Sensitivity < 3.5 ng/L (<3.5-17.0)
--- NOTE | 2021-02-02 22:49 | PC.NURSE ---
PT MOVED TO [facility] FOR DECREASED STIMULATION AND COMFORT. REPORT GIVEN TO JACQUELINE HARDEN, PT APPEARS MORE CALM AND IN AGREEANCE WITH PLAN OF CARE.
[2021-02-02 23:38] LABS: Glucose Urine UA NEG (NEG); Leukocyte Esterase Urine NEG (NEG); Nitrite Urine NEG (NEG); Specific Gravity - Urine 1.025 (1.005-1.025); Urine Blood NEG (NEG); Urine Ketones NEG (NEG); Urine Protein NEG (NEG-TRACE)
[2021-02-02 23:47] LABS: Mucus Urine 4+ /LPF; Squamous Epithelial Cell Urine 1+ /LPF; WBC Urine 0-2 /HPF (0-4)
[2021-02-02] MEDS: Ibuprofen 800 MG TABLET PO (23:48)
[2021-02-02 23:49] LABS: COVID-19 Test Negative (Negative); IDNOW Serial# 9DD0AD1C
[2021-02-02] MEDS: busPIRone HCl 5 MG TABLET 15 MG PO (23:49)
[2021-02-02 23:56] LABS: Amphetamine Screen Urine Not Detected (Not Detect); Barbiturates, Urine Not Detected (Not Detect); Benzodiazepines Screen Urine Not Detected (Not Detect); Cannabinoid Screen Urine Not Detected (Not Detect); Cocaine Screen Urine Not Detected (Not Detect); Fentanyl, urine Not Detected (Not Detect); Opiate Screen Urine Not Detected (Not Detect); Phencyclidine Screen Urine Not Detected (Not Detect)
[2021-02-02 23:59] LABS: Appearance Urine CLEAR; Color Urine YELLOW
[2021-02-03] MEDS: Mirtazapine 15 MG TABLET PO ×2 (00:15→19:43)
--- NOTE | 2021-02-03 00:34 | PC.NURSE ---
Patient got transferred from main ED, independent ambulation, behavior appropriate but appears anxious. Med compliant, care team assessed the patient, disposition at this time is d/c home after psych consult in the morning, provider ordered psych consult, M5 called and spoke with Srinath who confirmed receipt of consult order ticket, patient currently in bed resting, no distress observed/reported, will continue to monitor.
[2021-02-03 00:44] VITALS: BP 129/65; PULSE 82; RESP 18; TEMP 36.6; O2SAT 94
--- NOTE | 2021-02-03 01:01 | MHC.CARE ---
CARE team met with pt for anxiety consult. Pt is an 70 year old woman who self presents to [facility]. Pt reports she drove herself here due to worsening anxiety over the past few days. Pt reports she has a hx of depression and has experienced depression for several years. She states she has a hx of two IP admissions in the ', she then saw a therapist for a couple of years after and then was stable for many years. She notes that she had been on four machine long goods helper medications that helped stabilize her for so many years, however her PCP ultimately took her of these medications and after a few months she started to struggle with her depression. Pt reports recently, she became increasingly depressed and was evaluated by N and psychiatrically admitted. She reports she was hospitalized at [facility] and was d/c last week and was admitted for a total of 6 days. Pt reports she is and currently lives alone. She shares that she has two sons who are supportive but can't be present and available as much as she wants. She talks about her sister who she would like for her to call pt more and check up on her but does not. Pt feels lonely and socially isolated, she has no day structure. Pt worked for many years until her medical issues became more problematic and she had to go on disability. Pt reports she has had a series of back injuries and surgeries that resulted in prescribed opioids for many years and when they were no longer being prescribed to her she was referred to a suboxone clinic. Pt is on suboxone and states she has an apt tomorrow morning with our clinic. Pt reports while at [facility] she was prescribed gabapentin and currently reports she regrets telling the psychiatrist she wanted to try this medication because it has given her awful side effects. Pt reports since she has stopped taking her gabapentin, she has experienced an onset of significant anxiety. Pt is increasingly anxious while here in the ED and requires a lot of reassurance. While in the main ED, pt felt more anxious due to overstimulating environment and requesting d/c. Pt's initial nurse encouraged her to stay to be evaluated due to presentation and medication concern. I met with pt who discusses that she doesn't feel herself . She shares that she feels safe at home, but doesn't like being alone. Pt endorses vague SI stating I just don't want to be here, I don't want to deal with this all . Pt denies a plan and states she will not hurt herself. Pt reports her sleep is poor and appetite is not normal for her and describes this as an side effect to her medication. Pt confirms that she is medication compliant and administers her own medications. Pt denies AH/VH. Pt presents with flight of ideas attributed by her anxiety. Pt makes good eye contact. Pt is easily redirected to conversation and asks a lot of questions needing reassurance. Pt is calm, cooperative, pleasant, visibly anxious. Pt reports she doesn't feel like she needs to be psychiatrically admitted at this time and feels safe to d/c. Due to the onset of worsening anxiety, and recent medication change it was recommended to have pt remain in the ED overnight and speak with a psych provider tomorrow. A psych consult was placed. Pt was agreeable to this plan. In my clinical opinion, I believe pt can benefit from medication stabilization, community supports and an outpatient therapist. Pt has an initial psychiatry appointment on February 06 and suboxone tomorrow at [facility]. It is unknown at this time if pt is withdrawaling since her medication discontinuance and unknown if her onset of anxiety is exasperated by this. Pt seems unsure of what she wants to do going forward, she declines needing inpatient psych however states let's see how I am feeling tomorrow and after I speak to someone about my medications . Pt states I will admit since my discharge I have been having a hard time . She is agreeable to stay the night to meet with a psych provider tomorrow to discuss/review her medication regimen. Consult will also be helpful to determine if a voluntary admission will be beneficial or if pt should await her psychiatry appointment next week. Pt fears that she will have to come back to ED due to increased anxiety and states that she will be agreeable to any recommendations. CARE team is available as needed and will check in with pt tomorrow as well as coordinate care.
--- NOTE | 2021-02-03 06:10 | PC.NURSE ---
Patient slept through the night, out of room x2 for bathroom use, no distress observed/reported, asymptomatic of Gabapentin withdrawal, patient alert and oriented x4, med compliant, behavior appropriate, care team assessed the patient, disposition is to have psych consult and d/c home if there is no objection from psychiatrist, patient wanted her Suboxone earlier at 0630, provider okayed it, VSS, will continue to monitor.
[2021-02-03] MEDS: Buprenorphine/Naloxone 2/0.5mg FILM 1 FILM SUBLINGUAL ×2 (06:31→19:42)
[2021-02-03] MEDS: busPIRone HCl 5 MG TABLET 15 MG PO ×3 (09:04→19:43)
[2021-02-03 09:14] VITALS: BP 143/78; PULSE 95; RESP 16; TEMP 36.8; O2SAT 94
[2021-02-03 09:35] VITALS: BP 143/78; PULSE 95
[2021-02-03] MEDS: atenoloL 25 MG TABLET PO (09:35)
[2021-02-03] MEDS: PHENobarb/Hyoscy/Atropine/Scop 10 ML ELIXIR PO (10:01)
[2021-02-03] MEDS: Magnesium Hydrox/Alum Hydrox 30 ML ORAL.SUSP PO ×2 (10:01→19:42)
[2021-02-03] MEDS: Famotidine 20 MG TABLET PO (10:01)
[2021-02-03] MEDS: LORazepam 0.5 MG TABLET PO (10:10)
--- NOTE | 2021-02-03 10:28 | PC.NURSE ---
Pt endorsing feelings of anxiety with congruent affect. Pt also reporting some heart burn that she states is normal for her and she takes pepcid at home for. Orders obtained for GI cocktail and ativan, meds admin per AUG. Pt provided with coloring pages and markers. Ambulating around pod with walker.
[2021-02-03] MEDS: Ibuprofen 800 MG TABLET PO (15:04)
--- NOTE | 2021-02-03 15:20 | PC.NURSE ---
report taken from moon holden pt being admitted, appears calm and cooperative in [place], pleasant in conversation. tolerating po w/o issue. wctm.
[2021-02-03 17:17] VITALS: BP 166/86; PULSE 74; RESP 18; TEMP 36.8; O2SAT 95
--- NOTE | 2021-02-03 17:57 | PC.ADMIT ---
Patient admitted to floor from [facility] ED. Alert and Oriented x4. Verbalized understanding of reason for admission. Patient stated, I have chronic back pain and my PCP took me off my medications. Now I have depression and anxiety. Patient states she has snf chronic back pain. Since being taken off opioids patient is being treated with subaxone. Patient also states, I can't manage on my own. I am just overwhelmed with everything. Patient admission assessment complete. Oriented to unit. Exhibits anxiety over meds, being alone in room, sons not paying enough attention to her, sister not paying enough attention to her. Patient goals for discharge are to manage her own life at home and manage her depression and medications. She is future oriented. Patient denies SI. She stated, I am a good Yarsani woman, I would never harm myself.
[2021-02-03 18:00] VITALS: BP 140/74; PULSE 90; TEMP 37.1; O2SAT 94
--- NOTE | 2021-02-03 18:17 | HO.PSYADMNOT ---
HPI Chief Complaint: MDD Sources of Information: patient interviewed, chart reviewed and crisis/core team assessment reviewed HPI Subjective Notes: Jama Warning and Conditional Voluntary Healthcare Proxy: No Guardianship: No Medical Problems Affecting Mental Status: Yes Narrative: Radha is a 70 y.o. Female who carries a dx of MDD recurrent, panic disorder without agoraphobia, and JERRI. Self presented to ED on 02/02/21 due to chest pain, anxiety, poor sleep, depression, and passive SI. Per Care Team report, she stated ?I cant go on like this anymore? due to debilitating anxiety. Precipitating factors include recent medication changes, was discharged from [facility] last week and started on gabapentin but had adverse effect.? I evaluated the patient this afternoon and upon interview she reports her mood is ?okay.? Says her sx of anxiety and depression have been worsening x one month. Has remote hx of treatment for depression in hospital setting but had been stable for many years since then. Per Radha, she has always been a ?worrier? but ?not to this extent.? She identities precipitating factor as her PCP taking her off her opioid pain medication ?abruptly? in October 2020 and that it ?gives me anxiety just thinking about that.? She has had several medication trials since then, including starting suboxone for pain management. Says she was started on buspar by her PCP, denies adverse effects, thinks it has been helpful but ?alone it doesnt help.? She then presented to crisis and was hospitalized at [facility] 01/18/21 and was started on gabapentin but says she had to wean off this due to feeling worse anxiety, ?woozy,? and noticed ?swollen ankles.? Says she would like to stabilize her medications in a setting where she can be observed for side effects, as she has anxiety that ?I dont wanna take something too strong and fall asleep and not wake up.? She does not like living alone, says this is a ?big trigger.? She had even been paying for [facility] to come to her home and spend the night when she felt afraid but ultimately was unable to afford this. Reports sleep is improved on remeron, has been tolerating this medication with good effect. Energy is okay, ?could be better.?? She was given ativan 0.5 mg in the ED and says this helped with anxiety, ?didnt make me feel funny,? tolerated it well. Discussed side effects including addictive quality and contraindications with co-administration with suboxone. She says she would only want to take it PRN for severe panic attacks, would be helpful to know its available. In the milieu, patient is safe and appropriate in behavior. Denies SI/SIB/HI upon inquiry. Denies irritability or assaultive ideation. Says she feels safe. Current med regimen: Suboxone 2/0.5 mg, buspar 15 mg TID, remeron 15 mg QHS. PPH: -Recent hx of crisis evals. She was seen by [facility] crisis 01/18/21 due to anxiety, feeling overwhelmed, poor sleep, not feeling safe when alone. Previously, seen by crisis 01/08/2021 for similar presentation, disposition was to OP providers. Her first crisis eval was 12/29/20 due to anxiety, panic, stating ?I cant live like this,? disposition was [facility] resp[facility] but insurance would not cover her stay.? -Has OP services at [facility] -Remote hx of IPLOC in 1989 at [facility] and 1990 at [facility], says she then saw a therapist for 2 years and after that I was cured of it.? Reports she was put on medication at the time that was helpful but does not remember what it was called, PCP took her off these.? -Past med trials: remote hx of psychotropic medication for depression in the . Recently she was trialed on antidepressant medication for chronic pain but says she was unable to tolerate them due to GI distress, ?didnt help me.? Has recently tried hydroxyzine (?felt awful?), clonidine (?made me more anxious?), and gabapentin (?woozy,? increased anxiety) for anxiety. Has used melatonin for sleep with good effect.? SH: -She is , lives alone. Has 2 sons (one in [place], other in [facility]), 5 grandchildren. Has friends nearby and talks to her sister.? -Her , Sheldon, suddenly in 2013 s/p intracranial bleeding after he fell on black ice in their driveway getting newspaper.? 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 Had to stop working at age 55 due to chronic back pain, obtained SSDI. PMH: -Dx with scoliosis, spinal stenosis, arthritis, hx of back surgeries. She was prescribed opioid medications for many years but PCP took her off them ?abruptly? and she was referred to a suboxone clinic, [facility]. -Has HTN, on atenolol 25 mg QD. -Hx of hyperlipidemia, overweight -Labs 02/02: CBC wnl, CMP wnl except Co2 H 30, random glucose H 119. U/A negative. Utox negative except for buprenorphine (prescribed). COVID negative. EKG normal sinus rhythm, QTc wnl, 432. Medical Evaluation Reviewed: Yes [facility] Medical History (Updated 02/04/21 @ 08:01 by Roseline Dia NP) Anxiety Arthritis HLD (hyperlipidemia) HTN (hypertension) Muscle spasm of back Opioid use disorder Scoliosis Spinal arthritis Spinal stenosis Surgical History H/O spinal fusion Diagnostics Vital Signs (24Hr): Vital Signs - 24 hr 02/02/21 18:41 02/03/21 00:44 02/03/21 09:14 Temperature 99.5 F 97.8 F 98.3 F Pulse Rate 82 82 95 Respiratory Rate 16 18 16 Blood Pressure 129/65 143/78 H Pulse Oximetry 93 94 94 02/03/21 09:35 02/03/21 17:17 Temperature 98.3 F Pulse Rate 95 74 Respiratory Rate 18 Blood Pressure 143/78 H 166/86 H Pulse Oximetry 95 Body Mass Index 34.4 Labs Results: 02/02/21 21:51 02/02/21 21:51 Labs: Laboratory Results - last 48 hr 02/02/21 02/02/21 02/02/21 21:51 21:51 21:51 WBC 5.5 RBC 4.66 Hgb 13.5 Hct 41.8 MCV 89.7 MCH 29.0 MCHC 32.3 RDW 12.2 Plt Count 234 MPV 9.6 Immature Gran % (Auto) 0.4 Neut % (Auto) 54.4 Lymph % (Auto) 35.1 [place] % (Auto) 7.7 Eos % (Auto) 2.0 Baso % (Auto) 0.4 Lymph # (Auto) 1.9 [place] # (Auto) 0.4 Eos # (Auto) 0.1 Baso # (Auto) 0.0 Abs Immat Gran (auto) 0.02 Absolute Neuts (auto) 3.0 Absolute Nucleated RBC 0.000 Nucleated RBC % (auto) 0.0 Sodium 143 Potassium 3.9 Chloride 104 Carbon Dioxide 30 H Anion Gap 13 BUN 13 Creatinine 0.73 Estim Creat Clear Calc 70.8 Estimated GFR > 60 Random Glucose 119 H Calcium 9.0 Troponin I High Sens < 3.5 Urine Color Urine Appearance Urine pH Ur Specific [place] Urine Protein Urine Glucose (UA) Urine Ketones Urine Blood Urine Nitrite Ur Leukocyte Esterase Urine RBC Urine WBC Ur Squamous Epith Cells Urine Bacteria Urine Mucus Urine Opiates Screen Urine Fentanyl Screen Ur Barbiturates Screen Ur Phencyclidine Scrn Ur Amphetamines Screen U Benzodiazepines Scrn Urine Cocaine Screen U Marijuana (THC) Screen COVID-19 (TAHIRA) COVID-19 [employer] 02/02/21 02/02/21 02/02/21 23:22 23:22 23:22 WBC RBC Hgb Hct MCV MCH MCHC RDW Plt Count MPV Immature Gran % (Auto) Neut % (Auto) Lymph % (Auto) [place] % (Auto) Eos % (Auto) Baso % (Auto) Lymph # (Auto) [place] # (Auto) Eos # (Auto) Baso # (Auto) Abs Immat Gran (auto) Absolute Neuts (auto) Absolute Nucleated RBC Nucleated RBC % (auto) Sodium Potassium Chloride Carbon Dioxide Anion Gap BUN Creatinine Estim Creat Clear Calc Estimated GFR Random Glucose Calcium Troponin I High Sens Urine Color YELLOW Urine Appearance CLEAR Urine pH 6.0 Ur Specific [place] 1.025 Urine Protein NEG Urine Glucose (UA) NEG Urine Ketones NEG Urine Blood NEG Urine Nitrite NEG Ur Leukocyte Esterase NEG Urine RBC 1-4 Urine WBC 0-2 Ur Squamous Epith Cells 1+ Urine Bacteria NONE Urine Mucus 4+ Urine Opiates Screen Not Detected Urine Fentanyl Screen Not Detected Ur Barbiturates Screen Not Detected Ur Phencyclidine Scrn Not Detected Ur Amphetamines Screen Not Detected U Benzodiazepines Scrn Not Detected Urine Cocaine Screen Not Detected U Marijuana (THC) Screen Not Detected COVID-19 (TAHIRA) Negative COVID-19 Zova Com See Note Meds/Allergies Meds Home Medications Acetaminophen (Acetaminophen 325 Mg Tablet) 650 mg PO Q6H PRN PRN Reason: Headache/Pain Mild Scale (1-3) Al Hydroxide/Mg Hydroxide (Magnesium Hydrox/Alum Hydrox 30 Ml Oral.Susp) 30 ml PO Q6H PRN PRN Reason: Heartburn/Nausea Last Admin: 02/03/21 19:42 Dose: 30 ml Documented by: Atenolol (Atenolol 25 Mg Tablet) 25 mg PO DAILY [facility]; Protocol Last Admin: 02/03/21 09:35 Dose: 25 mg Documented by: Buprenorphine/Naloxone (Buprenorphine/Naloxone 2/0.5mg Film) 1 film SUBLINGUAL BID [facility] Last Admin: 02/03/21 19:42 Dose: 1 film Documented by: Buspirone HCl (Buspirone Hcl 5 Mg Tablet) 15 mg PO TID [facility] Last Admin: 02/03/21 19:43 Dose: 15 mg Documented by: Ibuprofen (Ibuprofen 400 Mg Tablet) 400 mg PO Q6H [facility] Last Admin: 02/04/21 02:55 Dose: 400 mg Documented by: Lorazepam (Lorazepam 0.5 Mg Tablet) 0.5 mg PO Q8H PRN PRN Reason: anxiety, panic attack Last Admin: 02/04/21 04:50 Dose: 0.5 mg Documented by: Magnesium Hydroxide (Milk Of Magnesia 30 Ml Oral.Susp) 30 ml PO DAILY PRN PRN Reason: Constipation Last Admin: 02/03/21 19:42 Dose: 30 ml Documented by: Mirtazapine (Mirtazapine 15 Mg Tablet) 15 mg PO BEDTIME [facility] Last Admin: 02/03/21 19:43 Dose: 15 mg Documented by: Allergies Allergies Allergy/AdvReac Type Severity Reaction Status Date / Time alendronate sodium [Fosamax] AdvReac Unknown increased Verified 09/28/16 00:00 pain antidepressants Allergy Unknown N/V Uncoded 09/28/16 00:00 Mobic Allergy Unknown eye pain Uncoded 09/28/16 00:00 Mental Status Exam Mental Status Exam Narrative: A&O. In hospital gown, good hygiene, overweight. Good eye contact, attentive. No Tics or Tremors. No abnormal involuntary movements. Calm, cooperative, engaged. Non-pressured speech, spontaneous with regular rate and rhythm, normal volume and prosody. No prolonged speech latency or dysarthria. Mood is ?okay,? affect is anxious. Denies SI/SIB/HI upon inquiry. Denies A/VH or delusional thought content. Thoughts are coherent, organized, circumstantial. No known cognitive or memory impairment. Insight/ Judgment fair and adequate. Assessment & Plan Assessment & Plan (1) MDD (major depressive disorder), recurrent episode, moderate: Status: Acute Code(s): F33.1 - Major depressive disorder, recurrent, moderate (2) Panic disorder without agoraphobia: Status: Acute Code(s): F41.0 - Panic disorder [episodic paroxysmal anxiety] (3) Generalized anxiety disorder: Status: Acute Code(s): F41.1 - Generalized anxiety disorder Assessment and Plan: Radha is a 70 y.o. Female who carries a dx of MDD recurrent, panic disorder without agoraphobia, and JERRI. Self presented to ED on 02/02/21 due to chest pain, anxiety, poor sleep, depression, and passive SI. She is currently presenting with sx of panic attacks, perseverative thoughts, depressed mood, and anxiety. She currently denies SI/SIB upon inquiry and says she feels safe. She does not like to be alone, worries about something happening to her and no one being there, and lives alone. She has had recent med trials for anxiety with adverse effects and would like to be in the hospital to have her medications straightened out and obtain outpatient referrals for anxiety. She likes buspar and remeron- buspar was recently increased outpatient, wants to monitor this for benefit. She was also just weaned off gabapentin two days ago and is afraid to trial a new medication at this time. Plan: 1. Continue buspar 15 mg TID (this was recently increased by PCP, wants to give it more time at this dose, denies adverse effects) 2. continue remeron 15 mg QHS for poor sleep, anxiety, depression 3. start ativan 0.5 mg Q8H PRN for panic attacks, reviewed risks and benefits of controlled substance/ benzodiazepines 4. Monitor response to medications. Monitor for safety in the milieu. Discharge on stabilization. Patient seen. Chart reviewed. Discussed with team. Obtain collateral contact info?as needed Reason for continued inpatient stay Substantial Risk for: med/psych decompensation
[2021-02-03] MEDS: Milk of Magnesia 30 ML ORAL.SUSP PO (19:42)
[2021-02-04] MEDS: Ibuprofen 400 MG TABLET PO ×4 (02:55→21:19)
[2021-02-04] MEDS: LORazepam 0.5 MG TABLET PO ×2 (04:50→17:21)
[2021-02-04 08:00] VITALS: BP 128/82; PULSE 91; RESP 18; TEMP 36.6; O2SAT 95
[2021-02-04] MEDS: Buprenorphine/Naloxone 2/0.5mg FILM 1 FILM SUBLINGUAL ×2 (08:18→20:48)
[2021-02-04 08:50] VITALS: BP 128/82; PULSE 91
[2021-02-04] MEDS: atenoloL 25 MG TABLET PO (08:50)
[2021-02-04] MEDS: busPIRone HCl 5 MG TABLET 15 MG PO ×3 (08:51→21:18)
--- NOTE | 2021-02-04 13:28 | HO.PSYADMNOT ---
HPI Chief Complaint: MDD [facility] Medical History (Updated 02/04/21 @ 08:01 by Roseline Dia NP) Anxiety Arthritis HLD (hyperlipidemia) HTN (hypertension) Muscle spasm of back Opioid use disorder Scoliosis Spinal arthritis Spinal stenosis Surgical History H/O spinal fusion Diagnostics Vital Signs (24Hr): Vital Signs - 24 hr 02/03/21 17:17 02/03/21 18:00 02/04/21 08:00 Temperature 98.3 F 98.7 F 97.9 F Pulse Rate 74 90 91 Respiratory Rate 18 18 Blood Pressure 166/86 H 140/74 H 128/82 Pulse Oximetry 95 94 95 02/04/21 08:50 Temperature Pulse Rate 91 Respiratory Rate Blood Pressure 128/82 Pulse Oximetry Body Mass Index 34.4 Labs Results: 02/02/21 21:51 02/02/21 21:51 Labs: Laboratory Results - last 48 hr 02/02/21 02/02/21 02/02/21 21:51 21:51 21:51 WBC 5.5 RBC 4.66 Hgb 13.5 Hct 41.8 MCV 89.7 MCH 29.0 MCHC 32.3 RDW 12.2 Plt Count 234 MPV 9.6 Immature Gran % (Auto) 0.4 Neut % (Auto) 54.4 Lymph % (Auto) 35.1 [place] % (Auto) 7.7 Eos % (Auto) 2.0 Baso % (Auto) 0.4 Lymph # (Auto) 1.9 [place] # (Auto) 0.4 Eos # (Auto) 0.1 Baso # (Auto) 0.0 Abs Immat Gran (auto) 0.02 Absolute Neuts (auto) 3.0 Absolute Nucleated RBC 0.000 Nucleated RBC % (auto) 0.0 Sodium 143 Potassium 3.9 Chloride 104 Carbon Dioxide 30 H Anion Gap 13 BUN 13 Creatinine 0.73 Estim Creat Clear Calc 70.8 Estimated GFR > 60 Random Glucose 119 H Calcium 9.0 Troponin I High Sens < 3.5 Urine Color Urine Appearance Urine pH Ur Specific [place] Urine Protein Urine Glucose (UA) Urine Ketones Urine Blood Urine Nitrite Ur Leukocyte Esterase Urine RBC Urine WBC Ur Squamous Epith Cells Urine Bacteria Urine Mucus Urine Opiates Screen Urine Fentanyl Screen Ur Barbiturates Screen Ur Phencyclidine Scrn Ur Amphetamines Screen U Benzodiazepines Scrn Urine Cocaine Screen U Marijuana (THC) Screen COVID-19 (TAHIRA) COVID-19 HepatoChem Com 02/02/21 02/02/21 02/02/21 23:22 23:22 23:22 WBC RBC Hgb Hct MCV MCH MCHC RDW Plt Count MPV Immature Gran % (Auto) Neut % (Auto) Lymph % (Auto) [place] % (Auto) Eos % (Auto) Baso % (Auto) Lymph # (Auto) [place] # (Auto) Eos # (Auto) Baso # (Auto) Abs Immat Gran (auto) Absolute Neuts (auto) Absolute Nucleated RBC Nucleated RBC % (auto) Sodium Potassium Chloride Carbon Dioxide Anion Gap BUN Creatinine Estim Creat Clear Calc Estimated GFR Random Glucose Calcium Troponin I High Sens Urine Color YELLOW Urine Appearance CLEAR Urine pH 6.0 Ur Specific [place] 1.025 Urine Protein NEG Urine Glucose (UA) NEG Urine Ketones NEG Urine Blood NEG Urine Nitrite NEG Ur Leukocyte Esterase NEG Urine RBC 1-4 Urine WBC 0-2 Ur Squamous Epith Cells 1+ Urine Bacteria NONE Urine Mucus 4+ Urine Opiates Screen Not Detected Urine Fentanyl Screen Not Detected Ur Barbiturates Screen Not Detected Ur Phencyclidine Scrn Not Detected Ur Amphetamines Screen Not Detected U Benzodiazepines Scrn Not Detected Urine Cocaine Screen Not Detected U Marijuana (THC) Screen Not Detected COVID-19 (TAHIRA) Negative COVID-19 [employer]TAG Interactive See Note Meds/Allergies Meds Home Medications Acetaminophen (Acetaminophen 325 Mg Tablet) 650 mg PO Q6H PRN PRN Reason: Headache/Pain Mild Scale (1-3) Al Hydroxide/Mg Hydroxide (Magnesium Hydrox/Alum Hydrox 30 Ml Oral.Susp) 30 ml PO Q6H PRN PRN Reason: Heartburn/Nausea Last Admin: 02/03/21 19:42 Dose: 30 ml Documented by: Atenolol (Atenolol 25 Mg Tablet) 25 mg PO DAILY [facility]; Protocol Last Admin: 02/04/21 08:50 Dose: 25 mg Documented by: Buprenorphine/Naloxone (Buprenorphine/Naloxone 2/0.5mg Film) 1 film SUBLINGUAL BID [facility] Last Admin: 02/04/21 08:18 Dose: 1 film Documented by: Buspirone HCl (Buspirone Hcl 5 Mg Tablet) 15 mg PO TID [facility] Last Admin: 02/04/21 08:51 Dose: 15 mg Documented by: Ibuprofen (Ibuprofen 400 Mg Tablet) 400 mg PO Q6H [facility] Last Admin: 02/04/21 08:50 Dose: 400 mg Documented by: Lorazepam (Lorazepam 0.5 Mg Tablet) 0.5 mg PO Q8H PRN PRN Reason: anxiety, panic attack Last Admin: 02/04/21 04:50 Dose: 0.5 mg Documented by: Magnesium Hydroxide (Milk Of Magnesia 30 Ml Oral.Susp) 30 ml PO DAILY PRN PRN Reason: Constipation Last Admin: 02/03/21 19:42 Dose: 30 ml Documented by: Melatonin (Melatonin 3 Mg Tablet) 3 mg PO BEDTIME [facility] Mirtazapine (Mirtazapine 15 Mg Tablet) 15 mg PO BEDTIME [facility] Last Admin: 02/03/21 19:43 Dose: 15 mg Documented by: Trolamine Salicylate/Aloe Vera (Trolamine Salicylate 10%/Aloe Cream 35.4 Gm) 1 appl TOPICAL QID PRN PRN Reason: Pain, Mild (Pain Scale 1-3) Allergies Allergies Allergy/AdvReac Type Severity Reaction Status Date / Time alendronate sodium [Fosamax] AdvReac Unknown increased Verified 09/28/16 00:00 pain antidepressants Allergy Unknown N/V Uncoded 09/28/16 00:00 Mobic Allergy Unknown eye pain Uncoded 09/28/16 00:00
[2021-02-04] MEDS: Acetaminophen 325 MG TABLET 650 MG PO (17:21)
--- NOTE | 2021-02-04 17:52 | HO.PSYCHPN ---
Subjective Subjective Date of Service: 02/04/21 Reason For Visit: MDD Subjective Notes: Conditional Voluntary Healthcare Proxy: No Interim History: pt anxious depressed ruminating fearful with depressed mood hopeless at times preoccupied Medication Compliance: Yes Side effects from medications: No Attending Groups: Yes Review of Systems Acute medical concerns: Yes Mental Status Exam Mental Status Exam Narrative: A&O. In hospital gown, good hygiene, overweight. Good eye contact, attentive. No Tics or Tremors. No abnormal involuntary movements. Calm, cooperative, engaged. Non-pressured speech, spontaneous with regular rate and rhythm, normal volume and prosody. No prolonged speech latency or dysarthria. Mood is ?okay,? affect is anxious. Denies SI/SIB/HI upon inquiry. Denies A/VH or delusional thought content. Thoughts are coherent, organized, circumstantial. No known cognitive or memory impairment. Insight/ Judgment fair and adequate. Diagnostics Vital Signs (24Hr): Vital Signs - 24 hr 02/03/21 18:00 02/04/21 08:00 02/04/21 08:50 Temperature 98.7 F 97.9 F Pulse Rate 90 91 91 Respiratory Rate 18 Blood Pressure 140/74 H 128/82 128/82 Pulse Oximetry 94 95 Body Mass Index 34.4 Labs Results: 02/02/21 21:51 02/02/21 21:51 Labs: Laboratory Results - last 48 hr 02/02/21 02/02/21 02/02/21 21:51 21:51 21:51 WBC 5.5 RBC 4.66 Hgb 13.5 Hct 41.8 MCV 89.7 MCH 29.0 MCHC 32.3 RDW 12.2 Plt Count 234 MPV 9.6 Immature Gran % (Auto) 0.4 Neut % (Auto) 54.4 Lymph % (Auto) 35.1 [place] % (Auto) 7.7 Eos % (Auto) 2.0 Baso % (Auto) 0.4 Lymph # (Auto) 1.9 [place] # (Auto) 0.4 Eos # (Auto) 0.1 Baso # (Auto) 0.0 Abs Immat Gran (auto) 0.02 Absolute Neuts (auto) 3.0 Absolute Nucleated RBC 0.000 Nucleated RBC % (auto) 0.0 Sodium 143 Potassium 3.9 Chloride 104 Carbon Dioxide 30 H Anion Gap 13 BUN 13 Creatinine 0.73 Estim Creat Clear Calc 70.8 Estimated GFR > 60 Random Glucose 119 H Calcium 9.0 Troponin I High Sens < 3.5 Urine Color Urine Appearance Urine pH Ur Specific [place] Urine Protein Urine Glucose (UA) Urine Ketones Urine Blood Urine Nitrite Ur Leukocyte Esterase Urine RBC Urine WBC Ur Squamous Epith Cells Urine Bacteria Urine Mucus Urine Opiates Screen Urine Fentanyl Screen Ur Barbiturates Screen Ur Phencyclidine Scrn Ur Amphetamines Screen U Benzodiazepines Scrn Urine Cocaine Screen U Marijuana (THC) Screen COVID-19 (TAHIRA) COVID-19 3DVista Com 02/02/21 02/02/21 02/02/21 23:22 23:22 23:22 WBC RBC Hgb Hct MCV MCH MCHC RDW Plt Count MPV Immature Gran % (Auto) Neut % (Auto) Lymph % (Auto) [place] % (Auto) Eos % (Auto) Baso % (Auto) Lymph # (Auto) [place] # (Auto) Eos # (Auto) Baso # (Auto) Abs Immat Gran (auto) Absolute Neuts (auto) Absolute Nucleated RBC Nucleated RBC % (auto) Sodium Potassium Chloride Carbon Dioxide Anion Gap BUN Creatinine Estim Creat Clear Calc Estimated GFR Random Glucose Calcium Troponin I High Sens Urine Color YELLOW Urine Appearance CLEAR Urine pH 6.0 Ur Specific [place] 1.025 Urine Protein NEG Urine Glucose (UA) NEG Urine Ketones NEG Urine Blood NEG Urine Nitrite NEG Ur Leukocyte Esterase NEG Urine RBC 1-4 Urine WBC 0-2 Ur Squamous Epith Cells 1+ Urine Bacteria NONE Urine Mucus 4+ Urine Opiates Screen Not Detected Urine Fentanyl Screen Not Detected Ur Barbiturates Screen Not Detected Ur Phencyclidine Scrn Not Detected Ur Amphetamines Screen Not Detected U Benzodiazepines Scrn Not Detected Urine Cocaine Screen Not Detected U Marijuana (THC) Screen Not Detected COVID-19 (TAHIRA) Negative COVID-19 3DVista Com See Note Medications Medications Current Medications Generic Name Dose Route Start Last Admin Trade Name Freq PRN Reason Stop Dose Admin Acetaminophen 650 mg 02/03/21 17:16 02/04/21 17:21 Acetaminophen 325 Mg Tablet PO 650 mg Q6H PRN Administration Headache/Pain Mild Scale (1-3) Al Hydroxide/Mg Hydroxide 30 ml 02/03/21 17:16 02/03/21 19:42 Magnesium Hydrox/Alum Hydrox 30 Ml Oral.Susp PO 30 ml Q6H PRN Administration Heartburn/Nausea Atenolol 25 mg 02/03/21 09:30 02/04/21 08:50 Atenolol 25 Mg Tablet PO 25 mg DAILY HAROON Administration Protocol Buprenorphine/Naloxone 1 film 02/03/21 09:00 02/04/21 08:18 Buprenorphine/Naloxone 2/0.5mg Film SUBLINGUAL 1 film BID HAROON Administration Buspirone HCl 15 mg 02/03/21 18:15 02/04/21 14:54 Buspirone Hcl 5 Mg Tablet PO 15 mg TID HAROON Administration Ibuprofen 400 mg 02/04/21 03:00 02/04/21 14:52 Ibuprofen 400 Mg Tablet PO 400 mg Q6H HAROON Administration Lorazepam 0.5 mg 02/03/21 18:16 02/04/21 17:21 Lorazepam 0.5 Mg Tablet PO 0.5 mg Q8H PRN Administration anxiety, panic attack Magnesium Hydroxide 30 ml 02/03/21 17:16 02/03/21 19:42 Milk Of Magnesia 30 Ml Oral.Susp PO 30 ml DAILY PRN Administration Constipation Melatonin 3 mg 02/04/21 21:00 Melatonin 3 Mg Tablet PO BEDTIME HAROON Mirtazapine 15 mg 02/03/21 00:15 02/03/21 19:43 Mirtazapine 15 Mg Tablet PO 15 mg BEDTIME HAROON Administration Trolamine Salicylate/Aloe Vera 1 appl 02/04/21 13:10 02/04/21 16:01 Trolamine Salicylate 10%/Aloe Cream 35.4 Gm TOPICAL 1 appl QID PRN Administration Pain, Mild (Pain Scale 1-3) Allergies Allergies Allergy/AdvReac Type Severity Reaction Status Date / Time alendronate sodium [Fosamax] AdvReac Unknown increased Verified 09/28/16 00:00 pain antidepressants Allergy Unknown N/V Uncoded 09/28/16 00:00 Mobic Allergy Unknown eye pain Uncoded 09/28/16 00:00 Assessment & Plan Assessment & Plan (1) MDD (major depressive disorder), recurrent episode, moderate: Status: Acute Code(s): F33.1 - Major depressive disorder, recurrent, moderate (2) Panic disorder without agoraphobia: Status: Acute Code(s): F41.0 - Panic disorder [episodic paroxysmal anxiety] (3) Generalized anxiety disorder: Status: Acute Code(s): F41.1 - Generalized anxiety disorder Assessment and Plan: Radha is a 70 y.o. Female who carries a dx of MDD recurrent, panic disorder without agoraphobia, and JERRI. Self presented to ED on 02/02/21 due to chest pain, anxiety, poor sleep, depression, and passive SI. She is currently presenting with sx of panic attacks, perseverative thoughts, depressed mood, and anxiety. She currently denies SI/SIB upon inquiry and says she feels safe. She does not like to be alone, worries about something happening to her and no one being there, and lives alone. She has had recent med trials for anxiety with adverse effects and would like to be in the hospital to have her medications straightened out and obtain outpatient referrals for anxiety. She likes buspar and remeron- buspar was recently increased outpatient, wants to monitor this for benefit. She was also just weaned off gabapentin two days ago and is afraid to trial a new medication at this time. lidocaine for neck and low back pain discussed option cymbalta low dose gabapentin Greater than 50% of the session was spent on counseling and/or coordination of care Reason for contiued inpatient stay Substantial Risk for: harm to self, inability to function and rapid decompensation
[2021-02-04 18:00] VITALS: BP 124/62; PULSE 84; RESP 16; TEMP 37.3; O2SAT 95
[2021-02-04] MEDS: Melatonin 3 MG TABLET PO (21:18)
[2021-02-04] MEDS: Mirtazapine 15 MG TABLET PO (21:19)
[2021-02-05] MEDS: Ibuprofen 400 MG TABLET PO ×3 (04:58→17:45)
[2021-02-05] MEDS: Acetaminophen 325 MG TABLET 650 MG PO ×2 (05:04→11:09)
[2021-02-05 08:17] VITALS: BP 138/81; PULSE 87; RESP 16; TEMP 37.1; O2SAT 98
[2021-02-05 08:19] VITALS: BP 138/81; PULSE 87
[2021-02-05] MEDS: atenoloL 25 MG TABLET PO (08:19)
[2021-02-05] MEDS: busPIRone HCl 5 MG TABLET 15 MG PO ×3 (08:19→20:22)
[2021-02-05] MEDS: Lidocaine 4 % Patch ADH..PATCH 1 PATCH TRANSDERMA ×2 (08:20)
[2021-02-05] MEDS: Buprenorphine/Naloxone 2/0.5mg FILM 1 FILM SUBLINGUAL ×2 (09:06→17:45)
[2021-02-05] MEDS: Magnesium Hydrox/Alum Hydrox 30 ML ORAL.SUSP PO ×2 (11:43→20:22)
--- NOTE | 2021-02-05 12:39 | HO.PSYCHPN ---
Subjective Subjective Date of Service: 02/05/21 Reason For Visit: MDD Subjective Notes: Conditional Voluntary Guardianship: No Interim History: Patient with depression anxiety continues to ruminate difficulty with insomnia Medication Compliance: Yes Attending Groups: Yes Mental Status Exam Mental Status Exam Narrative: . Patient Appearance: Well Grooomed Patient Orientation: Person, Place, Time and Situation Level of Consciousness: Appropriate Patient Behavior: Appropriate Mood Description: Depressed, Anxious and Apprehensive Affect Description: Depressed, Anxious and Apprehensive Ability to Follow Directions: Good Memory Description: Intact Hallucinations: None Thought Process: Intact and Rumination Thought Content: positive for Intact, positive for Obsessional Thoughts, positive for Hypochondriasis, positive for Suicidal Ideation (Thoughts at times better off ) and negative for Homicidal Ideation Depressive Symptoms: Increased Anxiety and Hopelessness Diagnostics Vital Signs (24Hr): Vital Signs - 24 hr 02/04/21 18:00 02/05/21 08:17 02/05/21 08:19 Temperature 99.1 F 98.7 F Pulse Rate 84 87 87 Respiratory Rate 16 16 Blood Pressure 124/62 138/81 138/81 Pulse Oximetry 95 98 Body Mass Index 34.4 Labs Results: 02/02/21 21:51 02/02/21 21:51 Medications Medications Current Medications Generic Name Dose Route Start Last Admin Trade Name Freq PRN Reason Stop Dose Admin Acetaminophen 650 mg 02/03/21 17:16 02/05/21 11:09 Acetaminophen 325 Mg Tablet PO 650 mg Q6H PRN Administration Headache/Pain Mild Scale (1-3) Al Hydroxide/Mg Hydroxide 30 ml 02/03/21 17:16 02/05/21 11:43 Magnesium Hydrox/Alum Hydrox 30 Ml Oral.Susp PO 30 ml Q6H PRN Administration Heartburn/Nausea Atenolol 25 mg 02/03/21 09:30 02/05/21 08:19 Atenolol 25 Mg Tablet PO 25 mg DAILY HAROON Administration Protocol Buprenorphine/Naloxone 1 film 02/03/21 09:00 02/05/21 09:06 Buprenorphine/Naloxone 2/0.5mg Film SUBLINGUAL 1 film BID HAROON Administration Buspirone HCl 15 mg 02/03/21 18:15 02/05/21 08:19 Buspirone Hcl 5 Mg Tablet PO 15 mg TID HAROON Administration Ibuprofen 400 mg 02/04/21 03:00 02/05/21 11:09 Ibuprofen 400 Mg Tablet PO 400 mg Q6H HAROON Administration Lidocaine 1 patch 02/05/21 09:00 02/05/21 08:20 Lidocaine 4 % Patch Adh..Patch TRANSDERMA 1 patch DAILY HAROON Administration Protocol Lidocaine 1 patch 02/05/21 09:00 02/05/21 08:20 Lidocaine 4 % Patch Adh..Patch TRANSDERMA 1 patch DAILY HAROON Administration Protocol Lorazepam 0.5 mg 02/03/21 18:16 02/04/21 17:21 Lorazepam 0.5 Mg Tablet PO 0.5 mg Q8H PRN Administration anxiety, panic attack Magnesium Hydroxide 30 ml 02/03/21 17:16 02/03/21 19:42 Milk Of Magnesia 30 Ml Oral.Susp PO 30 ml DAILY PRN Administration Constipation Melatonin 3 mg 02/04/21 21:00 02/04/21 21:18 Melatonin 3 Mg Tablet PO 3 mg BEDTIME HAROON Administration Mirtazapine 15 mg 02/03/21 00:15 02/04/21 21:19 Mirtazapine 15 Mg Tablet PO 15 mg BEDTIME HAROON Administration Trolamine Salicylate/Aloe Vera 1 appl 02/04/21 13:10 02/05/21 09:11 Trolamine Salicylate 10%/Aloe Cream 35.4 Gm TOPICAL 1 appl QID PRN Administration Pain, Mild (Pain Scale 1-3) Allergies Allergies Allergy/AdvReac Type Severity Reaction Status Date / Time alendronate sodium [Fosamax] AdvReac Unknown increased Verified 09/28/16 00:00 pain antidepressants Allergy Unknown N/V Uncoded 09/28/16 00:00 Mobic Allergy Unknown eye pain Uncoded 09/28/16 00:00 Assessment & Plan Assessment & Plan (1) MDD (major depressive disorder), recurrent episode, moderate: Status: Acute Code(s): F33.1 - Major depressive disorder, recurrent, moderate Assessment and Plan: Remeron 15 mg BuSpar change Suboxone to morning and late afternoon consider retrial of gabapentin consider Cymbalta would benefit from partial hospital referral (2) Panic disorder without agoraphobia: Status: Acute Code(s): F41.0 - Panic disorder [episodic paroxysmal anxiety] (3) Generalized anxiety disorder: Status: Acute Code(s): F41.1 - Generalized anxiety disorder Assessment and Plan: Radha is a 70 y.o. Female who carries a dx of MDD recurrent, panic disorder without agoraphobia, and JERRI. Self presented to ED on 02/02/21 due to chest pain, anxiety, poor sleep, depression, and passive SI. She is currently presenting with sx of panic attacks, perseverative thoughts, depressed mood, and anxiety. She currently denies SI/SIB upon inquiry and says she feels safe. She does not like to be alone, worries about something happening to her and no one being there, and lives alone. She has had recent med trials for anxiety with adverse effects and would like to be in the hospital to have her medications straightened out and obtain outpatient referrals for anxiety. She likes buspar and remeron- buspar was recently increased outpatient, wants to monitor this for benefit. She was also just weaned off gabapentin two days ago and is afraid to trial a new medication at this time. lidocaine for neck and low back pain discussed option cymbalta low dose gabapentin Greater than 50% of the session was spent on counseling and/or coordination of care Reason for contiued inpatient stay Substantial Risk for: harm to self and rapid decompensation
--- NOTE | 2021-02-05 16:23 | P.CNHOSGPS_ITS ---
History of Present Illness Data of Consult Service Date: 02/05/21 Requesting physician: Salvatore Michaels Primary Care Provider: Tien ARAIZA Reason for consult: admmission H&P, new leg edema This is a 70-year-old female with history depression, anxiety, chronic pain hypertension hyperlipidemia admitted to inpatient psychiatric care unit for further management anxiety. The hospitalists were asked to see her in consultation for an admission history and physical as well as new onset lower extremity edema. states she has had multiple medication adjustments over the past several months due to her increasing anxiety. Over the past couple days she has noticed swelling in her bilateral ankles which she has never had before. She denies any shortness of breath, dyspnea on exertion, orthopnea or paroxysmal nocturnal dyspnea. She has no history of kidney disease, liver disease or CHF. Review of Systems Review of Systems: Yes all other systems are reviewed and are negative Constitutional: Constitutional: Denies chills and Denies fever(s) Cardiovascular: Cardiovascular: Denies chest pain Respiratory: Respiratory: Denies cough Gastrointestinal: Gastrointestinal: Denies abdominal pain [facility] Medical History Anxiety Arthritis HLD (hyperlipidemia) HTN (hypertension) Muscle spasm of back Opioid use disorder Scoliosis Spinal arthritis Spinal stenosis Functional capacity: uses cane/walker Family History Father CHF (congestive heart failure) Mother CHF (congestive heart failure) Surgical History H/O spinal fusion Social History Household Members: None Housing: House Do you presently have visiting nurse or other home services: No Alcohol intake: never Patient Tobacco Use Status: Never used Tobacco Use of substances other than those prescribed or required for medical reasons: No Substance Use Type: Opiates Currently Displaying Signs/Symptoms of Drug Intoxication Withdrawal: No Have you been hit, kicked, punched, or otherwise hurt by someone within the past year? If so, by whom?: No Do you feel safe in your current relationship?: No Current Relationship Is there a partner from a previous relationship who is making you feel unsafe now?: No Are you made to feel afraid or neglected: No Spiritual Healthcare Practices: Practicing Rastafarian Advance Directives: Yes Advance Directives Information Provided: No Advance Directives on File: No Do you have thoughts of harming others: None Do you have a plan to hurt others: No Plan Recently lost weight without trying: Yes How much weight loss: 2-13 pounds Eating poorly because of decreased appetite: No Nutrition screen score: 3 Nutrition Risks: No Nutritional Risk Meds Allergies Allergy/AdvReac Type Severity Reaction Status Date / Time alendronate sodium [Fosamax] AdvReac Unknown increased Verified 09/28/16 00:00 pain antidepressants Allergy Unknown N/V Uncoded 09/28/16 00:00 Mobic Allergy Unknown eye pain Uncoded 09/28/16 00:00 Active Medications: Current Medications Generic Name Dose Route Start Last Admin Trade Name Freq PRN Reason Stop Dose Admin Acetaminophen 650 mg 02/03/21 17:16 02/05/21 11:09 Acetaminophen 325 Mg Tablet PO 650 mg Q6H PRN Administration Headache/Pain Mild Scale (1-3) Al Hydroxide/Mg Hydroxide 30 ml 02/03/21 17:16 02/05/21 11:43 Magnesium Hydrox/Alum Hydrox 30 Ml Oral.Susp PO 30 ml Q6H PRN Administration Heartburn/Nausea Atenolol 25 mg 02/03/21 09:30 02/05/21 08:19 Atenolol 25 Mg Tablet PO 25 mg DAILY HAROON Administration Protocol Buprenorphine/Naloxone 1 film 02/05/21 18:00 Buprenorphine/Naloxone 2/0.5mg Film SUBLINGUAL BID@0800,1800 HAROON Buspirone HCl 15 mg 02/03/21 18:15 02/05/21 15:34 Buspirone Hcl 5 Mg Tablet PO 15 mg TID HAROON Administration Ibuprofen 400 mg 02/04/21 03:00 02/05/21 11:09 Ibuprofen 400 Mg Tablet PO 400 mg Q6H HAROON Administration Lidocaine 1 patch 02/05/21 09:00 02/05/21 08:20 Lidocaine 4 % Patch Adh..Patch TRANSDERMA 1 patch DAILY HAROON Administration Protocol Lidocaine 1 patch 02/05/21 09:00 02/05/21 08:20 Lidocaine 4 % Patch Adh..Patch TRANSDERMA 1 patch DAILY HAROON Administration Protocol Lorazepam 0.5 mg 02/03/21 18:16 02/04/21 17:21 Lorazepam 0.5 Mg Tablet PO 0.5 mg Q8H PRN Administration anxiety, panic attack Magnesium Hydroxide 30 ml 02/03/21 17:16 02/03/21 19:42 Milk Of Magnesia 30 Ml Oral.Susp PO 30 ml DAILY PRN Administration Constipation Melatonin 3 mg 02/04/21 21:00 02/04/21 21:18 Melatonin 3 Mg Tablet PO 3 mg BEDTIME HAROON Administration Mirtazapine 15 mg 02/03/21 00:15 02/04/21 21:19 Mirtazapine 15 Mg Tablet PO 15 mg BEDTIME HAROON Administration Trolamine Salicylate/Aloe Vera 1 appl 02/04/21 13:10 02/05/21 09:11 Trolamine Salicylate 10%/Aloe Cream 35.4 Gm TOPICAL 1 appl QID PRN Administration Pain, Mild (Pain Scale 1-3) Home Medications Medication Instructions Recorded Confirmed Last Taken Type buprenorphine 2 mg-naloxone 0.5 mg 1 film SUBLINGUAL BID 02/02/21 02/02/21 02/02/21 08:00 History sublingual film buspirone 15 mg tablet 1 tab PO BID 02/02/21 02/02/21 02/02/21 08:00 History mirtazapine 15 mg tablet 1 tab PO BEDTIME 02/02/21 02/02/21 02/01/21 20:00 History atenolol 25 mg tablet 1 tab PO DAILY 02/03/21 02/03/21 Unknown History Results Labs CBC and Chem 7: 02/02/21 21:51 02/02/21 21:51 Assessment and Plan (1) Opioid use disorder: Status: Acute This is a 70-year-old female with a history of hypertension, hyperlipidemia, anxiety depression, chronic pain admitted to the inpatient psychiatric floor for management of anxiety Lower extremity edema Renal function, liver function, albumin levels within normal limits No [place], orthopnea, PND, chest pain. EKG unremarkable. -low sodium diet -compression stockings prn -consider outpatient echo HTN Blood pressure controlled Continue atenolol HLD not currently on statin outpatient provider aware, plan to follow up with pcp after discharge Thank you for allowing us to participate in the care of this patient. Please call us if any further issues arise. Physical Exam Vital Signs: Last Vital Signs Temp 98.7 F 02/05/21 08:17 Pulse 87 02/05/21 08:19 Resp 16 02/05/21 08:17 BP 138/81 08/29/21 08:19 Pulse Ox 98 02/05/21 08:17 Body Mass Index 34.4 Const Nutritional Appearance: well nourished Orientation/consciousness: patient oriented x3 [facility] Head: Yes normocephalic and Yes atraumatic Eyes Sclerae: sclerae normal Resp Effort & Inspection: normal respiratory effort and no respiratory distress Auscultation: clear to auscultation bilaterally Cardio Rate: regular rate Rhythm: regular rhythm GI Palpation (GI): Soft to palpation and nontender Neuro General: patient oriented x3 Cranial nerves: Yes CN's II-XII intact bilaterally and Yes Bilaterally intact EOM present Extrem Other: b/l ankle edema
[2021-02-05] MEDS: Melatonin 3 MG TABLET PO (20:22)
[2021-02-05] MEDS: Mirtazapine 15 MG TABLET PO (20:22)
[2021-02-05 21:05] VITALS: BP 130/77; PULSE 88; RESP 18; TEMP 36.9; O2SAT 95
[2021-02-06] MEDS: Ibuprofen 400 MG TABLET PO ×4 (02:21→19:58)
[2021-02-06] MEDS: LORazepam 0.5 MG TABLET PO (02:21)
[2021-02-06] MEDS: Acetaminophen 325 MG TABLET 650 MG PO (02:26)
[2021-02-06 06:00] VITALS: BP 149/76; PULSE 96; RESP 16; TEMP 37.3; O2SAT 96
[2021-02-06] MEDS: Buprenorphine/Naloxone 2/0.5mg FILM 1 FILM SUBLINGUAL ×2 (09:40→18:26)
[2021-02-06] MEDS: atenoloL 25 MG TABLET PO (10:06)
[2021-02-06] MEDS: busPIRone HCl 5 MG TABLET 15 MG PO ×3 (10:07→20:05)
[2021-02-06 10:59] VITALS: BP 149/76; PULSE 96; O2SAT 96
--- NOTE | 2021-02-06 13:57 | P.PNPSI_ITS ---
Subjective Subjective Date of Service: 02/06/21 Reason For Visit: MDD Subjective Notes: Conditional Voluntary Guardianship: No Interim History: pt irritable anxious dysphoric has hx depression in her 30 s which included episodes of paranoia Patient somewhat reactive Medication Compliance: Yes Mental Status Exam Mental Status Exam Narrative: . Patient Appearance: Well Grooomed Patient Orientation: Person, Place, Time and Situation Level of Consciousness: Appropriate Patient Behavior: Appropriate Mood Description: Depressed, Anxious and Apprehensive Affect Description: Depressed, Anxious and Apprehensive Ability to Follow Directions: Good Memory Description: Intact Hallucinations: None Thought Process: Intact and Rumination Thought Content: positive for Intact, positive for Obsessional Thoughts, positive for Hypochondriasis, positive for Suicidal Ideation (Thoughts at times better off ) and negative for Homicidal Ideation Depressive Symptoms: Increased Anxiety and Hopelessness Diagnostics Vital Signs (24Hr): Vital Signs - 24 hr 02/05/21 21:05 02/06/21 06:00 02/06/21 10:59 Temperature 98.5 F 99.1 F Pulse Rate 88 96 96 Respiratory Rate 18 16 Blood Pressure 130/77 149/76 H 149/76 H Pulse Oximetry 95 96 96 Body Mass Index 34.4 Labs Results: 02/02/21 21:51 02/02/21 21:51 Medications Medications Current Medications Generic Name Dose Route Start Last Admin Trade Name Marcelinoq PRN Reason Stop Dose Admin Acetaminophen 650 mg 02/03/21 17:16 02/06/21 02:26 Acetaminophen 325 Mg Tablet PO 650 mg Q6H PRN Administration Headache/Pain Mild Scale (1-3) Al Hydroxide/Mg Hydroxide 30 ml 02/03/21 17:16 02/05/21 20:22 Magnesium Hydrox/Alum Hydrox 30 Ml Oral.Susp PO 30 ml Q6H PRN Administration Heartburn/Nausea Atenolol 25 mg 02/03/21 09:30 02/06/21 10:06 Atenolol 25 Mg Tablet PO 25 mg DAILY HAROON Administration Protocol Buprenorphine/Naloxone 1 film 02/05/21 18:00 02/06/21 09:40 Buprenorphine/Naloxone 2/0.5mg Film SUBLINGUAL 1 film BID@0800,1800 [facility] Administration Buspirone HCl 15 mg 02/03/21 18:15 02/06/21 10:07 Buspirone Hcl 5 Mg Tablet PO 15 mg TID [facility] Administration Ibuprofen 400 mg 02/04/21 03:00 02/06/21 10:07 Ibuprofen 400 Mg Tablet PO 400 mg Q6H [facility] Administration Lidocaine 1 patch 02/05/21 09:00 02/06/21 10:10 Lidocaine 4 % Patch Adh..Patch TRANSDERMA Not Given DAILY [facility] Protocol Lidocaine 1 patch 02/05/21 09:00 02/06/21 10:10 Lidocaine 4 % Patch Adh..Patch TRANSDERMA Not Given DAILY [facility] Protocol Lorazepam 0.5 mg 02/03/21 18:16 02/06/21 02:21 Lorazepam 0.5 Mg Tablet PO 0.5 mg Q8H PRN Administration anxiety, panic attack Magnesium Hydroxide 30 ml 02/03/21 17:16 02/03/21 19:42 Milk Of Magnesia 30 Ml Oral.Susp PO 30 ml DAILY PRN Administration Constipation Melatonin 3 mg 02/04/21 21:00 02/05/21 20:22 Melatonin 3 Mg Tablet PO 3 mg BEDTIME [facility] Administration Mirtazapine 15 mg 02/03/21 00:15 02/05/21 20:22 Mirtazapine 15 Mg Tablet PO 15 mg BEDTIME [facility] Administration Trolamine Salicylate/Aloe Vera 1 appl 02/04/21 13:10 02/06/21 10:11 Trolamine Salicylate 10%/Aloe Cream 35.4 Gm TOPICAL 1 appl QID PRN Administration Pain, Mild (Pain Scale 1-3) Allergies Allergies Allergy/AdvReac Type Severity Reaction Status Date / Time alendronate sodium [Fosamax] AdvReac Unknown increased Verified 09/28/16 00:00 pain antidepressants Allergy Unknown N/V Uncoded 09/28/16 00:00 Mobic Allergy Unknown eye pain Uncoded 09/28/16 00:00 Assessment & Plan Assessment & Plan (1) MDD (major depressive disorder), recurrent episode, moderate: Status: Acute Code(s): F33.1 - Major depressive disorder, recurrent, moderate Assessment and Plan: Remeron 15 mg BuSpar change Suboxone to morning and late afternoon consider retrial of gabapentin consider Cymbalta would benefit from partial hospital referral discussed with Suboxone Clinic possibility of increasing Suboxone 2 mg 3 times a day (2) Panic disorder without agoraphobia: Status: Acute Code(s): F41.0 - Panic disorder [episodic paroxysmal anxiety] (3) Generalized anxiety disorder: Status: Acute Code(s): F41.1 - Generalized anxiety disorder Assessment and Plan: Radha is a 70 y.o. Female who carries a dx of MDD recurrent, panic disorder without agoraphobia, and JERRI. Self presented to ED on 02/02/21 due to chest pain, anxiety, poor sleep, depression, and passive SI. She is currently presenting with sx of panic attacks, perseverative thoughts, depressed mood, and anxiety. She currently denies SI/SIB upon inquiry and says she feels safe. She does not like to be alone, worries about something happening to her and no one being there, and lives alone. She has had recent med trials for anxiety with adverse effects and would like to be in the hospital to have her medications straightened out and obtain outpatient referrals for anxiety. She likes buspar and remeron- buspar was recently increased outpatient, wants to mon itor this for benefit. She was also just weaned off gabapentin two days ago and is afraid to trial a new medication at this time. lidocaine for neck and low back pain discussed option cymbalta low dose gabapentin Greater than 50% of the session was spent on counseling and/or coordination of care Reason for contiued inpatient stay Substantial Risk for: harm to self and rapid decompensation
--- NOTE | 2021-02-06 15:23 | MHC.CLN ---
NUTRITION WEIGHT LOSS 2-13# INDICATED UPON ADMISSION ASSESSMENT. RECENT WEIGHT HX VIEWED SHOWIN/9=83.0 KG, 01/18=81.7 KG, AND CURRENT WEIGHT=82.6 KG. WEIGHT ESSENTIALLY STABLE X 3 WEEKS. THERAPEUTIC DIET DUE TO NEW ONSET OF LOWER EXTREMITY EDEMA.
[2021-02-06 18:00] VITALS: BP 136/66; PULSE 82; RESP 17; TEMP 36.6; O2SAT 91
[2021-02-06] MEDS: Melatonin 3 MG TABLET PO (20:00)
[2021-02-06] MEDS: Magnesium Hydrox/Alum Hydrox 30 ML ORAL.SUSP PO (23:20)
[2021-02-07] MEDS: Ibuprofen 400 MG TABLET PO ×4 (03:42→21:34)
[2021-02-07] MEDS: Mirtazapine 15 MG TABLET PO ×2 (05:09→21:34)
[2021-02-07] MEDS: LORazepam 0.5 MG TABLET PO (06:30)
[2021-02-07] MEDS: busPIRone HCl 5 MG TABLET 15 MG PO (08:11)
[2021-02-07 08:12] VITALS: BP 135/79; PULSE 92
[2021-02-07] MEDS: atenoloL 25 MG TABLET PO (08:12)
[2021-02-07 09:20] VITALS: BP 135/79; PULSE 92; RESP 16; TEMP 36.8; O2SAT 91
[2021-02-07] MEDS: Buprenorphine/Naloxone 2/0.5mg FILM 1 FILM SUBLINGUAL ×3 (09:39→20:27)
[2021-02-07] MEDS: busPIRone HCl 10 MG TABLET PO ×2 (14:26→21:34)
[2021-02-07 20:25] VITALS: BP 120/56; PULSE 83; RESP 16; TEMP 36.6; O2SAT 94
[2021-02-07] MEDS: Melatonin 3 MG TABLET PO (21:35)
--- NOTE | 2021-02-07 21:59 | HO.PSYCHPN ---
Subjective Subjective Date of Service: 02/07/21 Reason For Visit: MDD Subjective Notes: Conditional Voluntary Mental Status Exam Mental Status Exam Narrative: . Patient Appearance: Well Grooomed Patient Orientation: Person, Place, Time and Situation Level of Consciousness: Appropriate Patient Behavior: Appropriate Mood Description: Depressed, Anxious and Apprehensive Affect Description: Depressed, Anxious and Apprehensive Ability to Follow Directions: Good Memory Description: Intact Hallucinations: None Thought Process: Intact and Rumination Thought Content: positive for Intact, positive for Obsessional Thoughts, positive for Hypochondriasis, positive for Suicidal Ideation (Thoughts at times better off ) and negative for Homicidal Ideation Depressive Symptoms: Increased Anxiety and Hopelessness Diagnostics Vital Signs (24Hr): Vital Signs - 24 hr 02/07/21 08:12 02/07/21 09:20 02/07/21 20:25 Temperature 98.2 F 98 F Pulse Rate 92 92 83 Respiratory Rate 16 16 Blood Pressure 135/79 135/79 120/56 L Pulse Oximetry 91 L 94 Body Mass Index 34.4 Labs Results: 02/02/21 21:51 02/02/21 21:51 Medications Medications Current Medications Generic Name Dose Route Start Last Admin Trade Name Freq PRN Reason Stop Dose Admin Acetaminophen 650 mg 02/03/21 17:16 02/06/21 02:26 Acetaminophen 325 Mg Tablet PO 650 mg Q6H PRN Administration Headache/Pain Mild Scale (1-3) Al Hydroxide/Mg Hydroxide 30 ml 02/03/21 17:16 02/06/21 23:20 Magnesium Hydrox/Alum Hydrox 30 Ml Oral.Susp PO 30 ml Q6H PRN Administration Heartburn/Nausea Atenolol 25 mg 02/03/21 09:30 02/07/21 08:12 Atenolol 25 Mg Tablet PO 25 mg DAILY [facility]OON Administration Protocol Buprenorphine/Naloxone 1 film 02/07/21 15:00 02/07/21 20:27 Buprenorphine/Naloxone 2/0.5mg Film SUBLINGUAL 1 film TID [facility]OON Administration Buspirone HCl 10 mg 02/07/21 15:00 02/07/21 21:34 Buspirone Hcl 10 Mg Tablet PO 10 mg TID HAROON Administration Ibuprofen 400 mg 02/04/21 03:00 02/07/21 21:34 Ibuprofen 400 Mg Tablet PO 400 mg Q6H HAROON Administration Lidocaine 1 patch 02/05/21 09:00 02/07/21 10:07 Lidocaine 4 % Patch Adh..Patch TRANSDERMA Not Given DAILY [facility] Protocol Lidocaine 1 patch 02/05/21 09:00 02/07/21 10:07 Lidocaine 4 % Patch Adh..Patch TRANSDERMA Not Given DAILY [facility] Protocol Lorazepam 0.5 mg 02/03/21 18:16 02/07/21 06:30 Lorazepam 0.5 Mg Tablet PO 0.5 mg Q8H PRN Administration anxiety, panic attack Magnesium Hydroxide 30 ml 02/03/21 17:16 02/03/21 19:42 Milk Of Magnesia 30 Ml Oral.Susp PO 30 ml DAILY PRN Administration Constipation Melatonin 3 mg 02/04/21 21:00 02/07/21 21:35 Melatonin 3 Mg Tablet PO 3 mg BEDTIME [facility]OON Administration Mirtazapine 15 mg 02/03/21 00:15 02/07/21 21:34 Mirtazapine 15 Mg Tablet PO 15 mg BEDTIME [facility] Administration Trolamine Salicylate/Aloe Vera 1 appl 02/04/21 13:10 02/07/21 03:43 Trolamine Salicylate 10%/Aloe Cream 35.4 Gm TOPICAL 1 appl QID PRN Administration Pain, Mild (Pain Scale 1-3) Allergies Allergies Allergy/AdvReac Type Severity Reaction Status Date / Time alendronate sodium [Fosamax] AdvReac Unknown increased Verified 09/28/16 00:00 pain antidepressants Allergy Unknown N/V Uncoded 09/28/16 00:00 Mobic Allergy Unknown eye pain Uncoded 09/28/16 00:00 Assessment & Plan Assessment & Plan (1) MDD (major depressive disorder), recurrent episode, moderate: Status: Acute Code(s): F33.1 - Major depressive disorder, recurrent, moderate Assessment and Plan: Remeron 15 mg BuSpar change Suboxone to morning and late afternoon consider retrial of gabapentin consider Cymbalta would benefit from partial hospital referral discussed with Suboxone Clinic [facility] Suboxone 2 mg 3 times a day d/c planning [facility] coping strategi (2) Panic disorder without agoraphobia: Status: Acute Code(s): F41.0 - Panic disorder [episodic paroxysmal anxiety] (3) Generalized anxiety disorder: Status: Acute Code(s): F41.1 - Generalized anxiety disorder Assessment and Plan: Radha is a 70 y.o. Female who carries a dx of MDD recurrent, panic disorder without agoraphobia, and JERRI. Self presented to ED on 02/02/21 due to chest pain, anxiety, poor sleep, depression, and passive SI. She is currently presenting with sx of panic attacks, perseverative thoughts, depressed mood, and anxiety. She currently denies SI/SIB upon inquiry and says she feels safe. She does not like to be alone, worries about something happening to her and no one being there, and lives alone. She has had recent med trials for anxiety with adverse effects and would like to be in the hospital to have her medications straightened out and obtain outpatient referrals for anxiety. She likes buspar and remeron- buspar was recently increased outpatient, wants to monitor this for benefit. She was also just weaned off gabapentin two days ago and is afraid to trial a new medication at this time. lidocaine for neck and low back pain discussed option cymbalta low dose gabapentin Greater than 50% of the session was spent on counseling and/or coordination of care Reason for contiued inpatient stay Substantial Risk for: harm to self and rapid decompensation
[2021-02-08] MEDS: Ibuprofen 400 MG TABLET PO ×4 (03:26→21:00)
[2021-02-08] MEDS: LORazepam 0.5 MG TABLET PO (05:01)
[2021-02-08 06:00] VITALS: BP 118/64; PULSE 96; RESP 16; TEMP 36.5; O2SAT 93
[2021-02-08] MEDS: Buprenorphine/Naloxone 2/0.5mg FILM 1 FILM SUBLINGUAL ×3 (08:29→21:40)
[2021-02-08 08:47] VITALS: BP 118/64; PULSE 96
[2021-02-08] MEDS: busPIRone HCl 10 MG TABLET PO ×3 (08:47→21:01)
[2021-02-08] MEDS: atenoloL 25 MG TABLET PO (08:47)
[2021-02-08] MEDS: Lidocaine 4 % Patch ADH..PATCH 1 PATCH TRANSDERMA ×2 (08:48)
--- NOTE | 2021-02-08 17:44 | P.PNPSI_ITS ---
Subjective Subjective Date of Service: 02/08/21 Reason For Visit: MDD Subjective Notes: Conditional Voluntary Guardianship: No Interim History: Patient tolerating Suboxone 2 mg t.i.d. continues anxious and ruminating but less fragile no serious panic attacks. Patient denies any self- harming thoughts working on coping strategies for anxiety. Pain in better control Diagnostics Vital Signs (24Hr): Vital Signs - 24 hr 02/07/21 20:25 02/08/21 06:00 02/08/21 08:47 Temperature 98 F 97.7 F Pulse Rate 83 96 96 Respiratory Rate 16 16 Blood Pressure 120/56 L 118/64 118/64 Pulse Oximetry 94 93 Body Mass Index 34.4 Labs Results: 02/02/21 21:51 02/02/21 21:51 Medications Medications Current Medications Generic Name Dose Route Start Last Admin Trade Name Freq PRN Reason Stop Dose Admin Acetaminophen 650 mg 02/03/21 17:16 02/06/21 02:26 Acetaminophen 325 Mg Tablet PO 650 mg Q6H PRN Administration Headache/Pain Mild Scale (1-3) Al Hydroxide/Mg Hydroxide 30 ml 02/03/21 17:16 02/06/21 23:20 Magnesium Hydrox/Alum Hydrox 30 Ml Oral.Susp PO 30 ml Q6H PRN Administration Heartburn/Nausea Atenolol 25 mg 02/03/21 09:30 02/08/21 08:47 Atenolol 25 Mg Tablet PO 25 mg DAILY HAROON Administration Protocol Buprenorphine/Naloxone 1 film 02/07/21 15:00 02/08/21 15:30 Buprenorphine/Naloxone 2/0.5mg Film SUBLINGUAL 1 film TID HAROON Administration Buspirone HCl 10 mg 02/07/21 15:00 02/08/21 15:31 Buspirone Hcl 10 Mg Tablet PO 10 mg TID [facility]OON Administration Ibuprofen 400 mg 02/04/21 03:00 02/08/21 15:30 Ibuprofen 400 Mg Tablet PO 400 mg Q6H [facility]OON Administration Lidocaine 1 patch 02/05/21 09:00 02/08/21 08:48 Lidocaine 4 % Patch Adh..Patch TRANSDERMA 1 patch DAILY [facility] Administration Protocol Lidocaine 1 patch 02/05/21 09:00 02/08/21 08:48 Lidocaine 4 % Patch Adh..Patch TRANSDERMA 1 patch DAILY [facility] Administration Protocol Lorazepam 0.5 mg 02/03/21 18:16 02/08/21 05:01 Lorazepam 0.5 Mg Tablet PO 0.5 mg Q8H PRN Administration anxiety, panic attack Magnesium Hydroxide 30 ml 02/03/21 17:16 02/03/21 19:42 Milk Of Magnesia 30 Ml Oral.Susp PO 30 ml DAILY PRN Administration Constipation Melatonin 3 mg 02/04/21 21:00 02/07/21 21:35 Melatonin 3 Mg Tablet PO 3 mg BEDTIME HAROON Administration Mirtazapine 15 mg 02/03/21 00:15 02/07/21 21:34 Mirtazapine 15 Mg Tablet PO 15 mg BEDTIME [facility]OON Administration Trolamine Salicylate/Aloe Vera 1 appl 02/04/21 13:10 02/07/21 03:43 Trolamine Salicylate 10%/Aloe Cream 35.4 Gm TOPICAL 1 appl QID PRN Administration Pain, Mild (Pain Scale 1-3) Allergies Allergies Allergy/AdvReac Type Severity Reaction Status Date / Time alendronate sodium [Fosamax] AdvReac Unknown increased Verified 09/28/16 00:00 pain antidepressants Allergy Unknown N/V Uncoded 09/28/16 00:00 Mobic Allergy Unknown eye pain Uncoded 09/28/16 00:00 Assessment & Plan Assessment & Plan (1) MDD (major depressive disorder), recurrent episode, moderate: Status: Acute Code(s): F33.1 - Major depressive disorder, recurrent, moderate Assessment and Plan: Remeron 15 mg BuSpar change Suboxone to morning and late afternoon consider retrial of gabapentin consider Cymbalta would benefit from partial hospital referral discussed with Suboxone Clinic [facility] Suboxone 2 mg 3 times a day d/c planning [facility] coping strategy (2) Panic disorder without agoraphobia: Status: Acute Code(s): F41.0 - Panic disorder [episodic paroxysmal anxiety] (3) Generalized anxiety disorder: Status: Acute Code(s): F41.1 - Generalized anxiety disorder Assessment and Plan: Radha is a 70 y.o. Female who carries a dx of MDD recurrent, panic disorder witho ut agoraphobia, and JERRI. Self presented to ED on 02/02/21 due to chest pain, anxiety, poor sleep, depression, and passive SI. She is currently presenting with sx of panic attacks, perseverative thoughts, depressed mood, and anxiety. She currently denies SI/SIB upon inquiry and says she feels safe. She does not like to be alone, worries about something happening to her and no one being there, and lives alone. She has had recent med trials for anxiety with adverse effects and would like to be in the hospital to have her medications straightened out and obtain outpatient referrals for anxiety. She likes buspar and remeron- buspar was recently increased outpatient, wants to monitor this for benefit. She was also just weaned off gabapentin two days ago and is afraid to trial a new medication at this time. lidocaine for neck and low back pain discussed option cymbalta low dose gabapentin Greater than 50% of the session was spent on counseling and/or coordination of care Reason for contiued inpatient stay Substantial Risk for: harm to self and rapid decompensation
[2021-02-08] MEDS: Milk of Magnesia 30 ML ORAL.SUSP PO (18:02)
[2021-02-08 20:30] VITALS: BP 133/70; PULSE 82; RESP 17; TEMP 36.8; O2SAT 94
[2021-02-08] MEDS: Melatonin 3 MG TABLET PO (21:00)
[2021-02-08] MEDS: Mirtazapine 15 MG TABLET PO (21:01)
[2021-02-09] MEDS: LORazepam 0.5 MG TABLET PO (03:24)
[2021-02-09] MEDS: Ibuprofen 400 MG TABLET PO ×3 (03:24→20:34)
[2021-02-09 08:36] VITALS: BP 123/77; PULSE 95; RESP 18; O2SAT 97
[2021-02-09] MEDS: busPIRone HCl 10 MG TABLET PO ×3 (08:38→20:35)
[2021-02-09] MEDS: Acetaminophen 325 MG TABLET 650 MG PO (08:38)
[2021-02-09 08:39] VITALS: BP 123/77; PULSE 95
[2021-02-09] MEDS: atenoloL 25 MG TABLET PO (08:39)
[2021-02-09] MEDS: Buprenorphine/Naloxone 2/0.5mg FILM 1 FILM SUBLINGUAL ×3 (09:04→20:34)
[2021-02-09] MEDS: Lidocaine 4 % Patch ADH..PATCH 1 PATCH TRANSDERMA (13:15)
[2021-02-09 18:00] VITALS: BP 116/75; PULSE 78; TEMP 37.1; O2SAT 95
[2021-02-09] MEDS: Magnesium Hydrox/Alum Hydrox 30 ML ORAL.SUSP PO (20:11)
[2021-02-09] MEDS: Melatonin 3 MG TABLET PO (20:35)
[2021-02-09] MEDS: Mirtazapine 15 MG TABLET PO (20:35)
[2021-02-09 20:46] VITALS: BP 122/73; PULSE 77; RESP 17; TEMP 36.6; O2SAT 95
--- NOTE | 2021-02-09 21:12 | HO.PSYCHPN ---
Subjective Subjective Date of Service: 02/09/21 Reason For Visit: MDD Subjective Notes: Conditional Voluntary Guardianship: No Interim History: Pt has been anxious but feels ok about d/c case reviewed Mental Status Exam Mental Status Exam Narrative: . Patient Appearance: Well Grooomed Patient Orientation: Person, Place, Time and Situation Level of Consciousness: Appropriate Patient Behavior: Appropriate Mood Description: Depressed, Anxious and Apprehensive Affect Description: Depressed, Anxious and Apprehensive Ability to Follow Directions: Good Memory Description: Intact Hallucinations: None Thought Process: Intact and Rumination Thought Content: positive for Intact, positive for Obsessional Thoughts, positive for Hypochondriasis, positive for Suicidal Ideation (Thoughts at times better off ) and negative for Homicidal Ideation Depressive Symptoms: Increased Anxiety and Hopelessness Diagnostics Vital Signs (24Hr): Vital Signs - 24 hr 02/09/21 08:36 02/09/21 08:39 02/09/21 18:00 Temperature 98.8 F Pulse Rate 95 95 78 Respiratory Rate 18 Blood Pressure 123/77 123/77 116/75 Pulse Oximetry 97 95 02/09/21 20:46 Temperature 97.9 F Pulse Rate 77 Respiratory Rate 17 Blood Pressure 122/73 Pulse Oximetry 95 Body Mass Index 34.4 Labs Results: 02/02/21 21:51 02/02/21 21:51 Medications Medications Current Medications Generic Name Dose Route Start Last Admin Trade Name Marcelinoq PRN Reason Stop Dose Admin Acetaminophen 650 mg 02/03/21 17:16 02/09/21 08:38 Acetaminophen 325 Mg Tablet PO 650 mg Q6H PRN Administration Headache/Pain Mild Scale (1-3) Al Hydroxide/Mg Hydroxide 30 ml 02/03/21 17:16 02/09/21 20:11 Magnesium Hydrox/Alum Hydrox 30 Ml Oral.Susp PO 30 ml Q6H PRN Administration Heartburn/Nausea Atenolol 25 mg 02/03/21 09:30 02/09/21 08:39 Atenolol 25 Mg Tablet PO 25 mg DAILY HAROON Administration Protocol Buprenorphine/Naloxone 1 film 02/07/21 15:00 02/09/21 20:34 Buprenorphine/Naloxone 2/0.5mg Film SUBLINGUAL 1 film TID [facility]OON Administration Buspirone HCl 10 mg 02/07/21 15:00 02/09/21 20:35 Buspirone Hcl 10 Mg Tablet PO 10 mg TID HAORON Administration Ibuprofen 400 mg 02/04/21 03:00 02/09/21 20:34 Ibuprofen 400 Mg Tablet PO 400 mg Q6H [facility]OON Administration Lidocaine 1 patch 02/05/21 09:00 02/09/21 13:15 Lidocaine 4 % Patch Adh..Patch TRANSDERMA 1 patch DAILY [facility]OON Administration Protocol Lidocaine 1 patch 02/05/21 09:00 02/09/21 13:34 Lidocaine 4 % Patch Adh..Patch TRANSDERMA Not Given DAILY [facility] Protocol Lorazepam 0.5 mg 02/09/21 03:11 02/09/21 03:24 Lorazepam 0.5 Mg Tablet PO 02/15/21 23:59 0.5 mg Q8H PRN Administration Anxiety Magnesium Hydroxide 30 ml 02/03/21 17:16 02/08/21 18:02 Milk Of Magnesia 30 Ml Oral.Susp PO 30 ml DAILY PRN Administration Constipation Melatonin 3 mg 02/04/21 21:00 02/09/21 20:35 Melatonin 3 Mg Tablet PO 3 mg BEDTIME HAROON Administration Mirtazapine 15 mg 02/03/21 00:15 02/09/21 20:35 Mirtazapine 15 Mg Tablet PO 15 mg BEDTIME HAROON Administration Trolamine Salicylate/Aloe Vera 1 appl 02/04/21 13:10 02/07/21 03:43 Trolamine Salicylate 10%/Aloe Cream 35.4 Gm TOPICAL 1 appl QID PRN Administration Pain, Mild (Pain Scale 1-3) Allergies Allergies Allergy/AdvReac Type Severity Reaction Status Date / Time alendronate sodium [Fosamax] AdvReac Unknown increased Verified 09/28/16 00:00 pain antidepressants Allergy Unknown N/V Uncoded 09/28/16 00:00 Mobic Allergy Unknown eye pain Uncoded 09/28/16 00:00 Assessment & Plan Assessment & Plan (1) MDD (major depressive disorder), recurrent episode, moderate: Status: Acute Code(s): F33.1 - Major depressive disorder, recurrent, moderate Assessment and Plan: Remeron 15 mg BuSpar change Suboxone to morning aft and bedtime benefit from partial hospital referral discussed with Suboxone Clinic [facility] Suboxone 2 mg 3 times a day d/c planning [facility] coping strategy (2) Panic disorder without agoraphobia: Status: Acute Code(s): F41.0 - Panic disorder [episodic paroxysmal anxiety] (3) Generalized anxiety disorder: Status: Acute Code(s): F41.1 - Generalized anxiety disorder Assessment and Plan: Radha is a 70 y.o. Female who carries a dx of MDD recurrent, panic disorder without agoraphobia, and JERRI. Self presented to ED on 02/02/21 due to chest pain, anxiety, poor sleep, depression, and passive SI. She is currently presenting with sx of panic attacks, perseverative thoughts, depressed mood, and anxiety. She currently denies SI/SIB upon inquiry and says she feels safe. She does not like to be alone, worries about something happening to her and no one being there, and lives alone. She has had recent med trials for anxiety with adverse effects and would like to be in the hospital to have her medications straightened out and obtain outpatient referrals for anxiety. She likes buspar and remeron- buspar was recently increased outpatient, wants to monitor this for benefit. She was also just weaned off gabapentin two days ago and is afraid to trial a new medication at this time. lidocaine for neck and low back pain discussed option cymbalta low dose gabapentin Greater than 50% of the session was spent on counseling and/or coordination of care Reason for contiued inpatient stay Substantial Risk for: rapid decompensation
[2021-02-10] MEDS: Ibuprofen 400 MG TABLET PO ×2 (02:19→08:27)
[2021-02-10] MEDS: LORazepam 0.5 MG TABLET PO (05:20)
[2021-02-10] MEDS: Buprenorphine/Naloxone 2/0.5mg FILM 1 FILM SUBLINGUAL (06:40)
[2021-02-10 07:55] VITALS: BP 123/72; PULSE 97; RESP 18; TEMP 36.9; O2SAT 94
[2021-02-10 08:27] VITALS: BP 123/72; PULSE 97
[2021-02-10] MEDS: busPIRone HCl 10 MG TABLET PO (08:27)
[2021-02-10] MEDS: atenoloL 25 MG TABLET PO (08:27)
[2021-02-10] MEDS: Lidocaine 4 % Patch ADH..PATCH 1 PATCH TRANSDERMA (08:28)
--- NOTE | 2021-02-10 11:02 | P.DS_ITS ---
DS: Providers Provider Date of Service: 02/10/21 Date of admission: 02/03/21 15:35 Date of discharge: 02/10/21 Primary care physician: Tien Gay Attending physician on admission: Salvatore Michaels Consults: 02/05/21 12:50 Consult to Hospitalist Routine Consulting Provider: Hospitalist Reason For Exam: ADMISSION PHYSICAL NEW EDEMA DS: Diagnosis Discharge Diagnosis (1) MDD (major depressive disorder), recurrent episode, moderate: Status: Acute (2) Panic disorder without agoraphobia: Status: Acute (3) Generalized anxiety disorder: Status: Acute DS: Medications Discharge Medications Home Medications: Home Medications Medication Instructions Recorded Confirmed atenolol 25 mg tablet 1 tab PO DAILY 02/03/21 02/13/21 Previous Rx's Medication Instructions Recorded buspirone 10 mg tablet 10 mg PO TID 30 Days #90 tab 02/10/21 lorazepam 0.5 mg tablet 0.5 mg PO BID PRN #10 tab 02/10/21 lorazepam 0.5 mg tablet 0.5 mg PO BID PRN #14 tab 02/10/21 lorazepam 0.5 mg tablet (Ativan) 0.5 mg PO BID PRN #10 tab 02/10/21 melatonin 3 mg tablet 3 mg PO BEDTIME 30 Days #30 tab 02/10/21 mirtazapine 15 mg tablet 1 tab PO BEDTIME #30 tab 02/10/21 buprenorphine 2 mg-naloxone 0.5 mg 1 film SUBLINGUAL TID 14 Days #42 02/21/21 sublingual film ea Mental Status Exam Mental Status Exam Narrative: Patient casually dressed appropriate behavior thinking is goal directed and logical some insecurity times thinking people hard judging her in someway but no gross delusional thinking or hallucinations some anxiety and depressive symptoms responds well to reassurance future oriented denies any thoughts of self-harm understand she needs to figure out how to manage things and develop strategies. DS: Summary Hospital Course Hospital Course: [facility] [place] [address] Psychiatry Admission Note (In)Signed Patient: Radha Jarvis AM[facility]#: [id number]: 2Acct:[id number]/Sex: 70 / FLoc:[id number]: Roseline Dia ENGINE MONITOR cc: ~ HPI Chief Complaint: MDD Sources of Information: patient interviewed, chart reviewed and crisis/core team assessment reviewed HPI Subjective Notes: Jama Warning and Conditional Voluntary Healthcare Proxy: No Guardianship: No Medical Problems Affecting Mental Status: Yes Narrative: Radha is a 70 y.o. Female who carries a dx of MDD recurrent, panic disorder without agoraphobia, and JERRI. Self presented to ED on 02/02/21 due to chest pain, anxiety, poor sleep, depression, and passive SI. Per Care Team report, she stated ?I cant go on like this anymore? due to debilitating anxiety. Precipitating factors include recent medication changes, was discharged from [facility] last week and started on gabapentin but had adverse effect. I evaluated the patient this afternoon and upon interview she reports her mood is ?okay.? Says her sx of anxiety and depression have been worsening x one month. Has remote hx of treatment for depression in hospital setting but had been stable for many years since then. Per Radha, she has always been a ?worrier? but ?not to this extent.? She identities precipitating factor as her PCP taking her off her opioid pain medication ?abruptly? in October 2020 and that it ?gives me anxiety just thinking about that.? She has had several medication trials since then, including starting suboxone for pain management. Says she was started on buspar by her PCP, denies adverse effects, thinks it has been helpful but ?alone it doesnt help.? She then presented to crisis and was hospitalized at [facility] 01/18/21 and was started on gabapentin but says she had to wean off this due to feeling worse anxiety, ?woozy,? and noticed ?swollen ankles.? Says she would like to stabilize her medications in a setting where she can be observed for side effects, as she has anxiety that ?I dont wanna take something too strong and fall asleep and not wake up.? She does not like living alone, says this is a ?big trigger.? She had even been paying for [facility] to come to her home and spend the night when she felt afraid but ultimately was unable to afford this. Reports sleep is improved on remeron, has been tolerating this medication with good effect. Energy is okay, ?could be better.? She was given ativan 0.5 mg in the ED and says this helped with anxiety, ?didnt make me feel funny,? tolerated it well. Discussed side effects including addictive quality and contraindications with co-administration with suboxone. S he says she would only want to take it PRN for severe panic attacks, would be helpful to know its available. In the milieu, patient is safe and appropriate in behavior. Denies SI/SIB/HI upon inquiry. Denies irritability or assaultive ideation. Says she feels safe. Current med regimen: Suboxone 2/0.5 mg, buspar 15 mg TID, remeron 15 mg QHS. PPH: -Recent hx of crisis evals. She was seen by [facility] crisis 01/18/21 due to anxiety, feeling overwhelmed, poor sleep, not feeling safe when alone. Previously, seen by crisis 01/08/2021 for similar presentation, disposition was to OP providers. Her first crisis eval was 12/29/20 due to anxiety, panic, stating ?I cant live like this,? disposition was [facility] resp[facility] but insurance would not cover her stay. -Has OP services at [facility] -Remote hx of IPLOC in 1989 at [facility] and 1990 at [facility], says she then saw a therapist for 2 years and after that I was cured of it.? Reports she was put on medication at the time that was helpful but does not remember what it was called, PCP took her off these. -Past med trials: remote hx of psychotropic medication for depression in the . Recently she was trialed on antidepressant medication for chronic pain but says she was unable to tolerate them due to GI distress, ?didnt help me.? Has recently tried hydroxyzine (?felt awful?), clonidine (?made me more anxious?), and gabapentin (?woozy,? increased anxiety) for anxiety. Has used melatonin for sleep with good effect. SH: -She is , lives alone. Has 2 sons (one in [place], other in [place]), 5 grandchildren. Has friends nearby and talks to her sister. -Her , Sheldon, suddenly in 2013 s/p intracranial bleeding after he fell on black ice in their driveway getting newspaper. 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 Had to stop working at age 55 due to chronic back pain, obtained SSDI. PMH: -Dx with scoliosis, spinal stenosis, arthritis, hx of back surgeries. She was prescribed opioid medications for many years but PCP took her off them ?abruptly? and she was referred to a suboxone clinic, [facility]. -Has HTN, on atenolol 25 mg QD. -Hx of hyperlipidemia, overweight -Labs 02/02: CBC wnl, CMP wnl except Co2 H 30, random glucose H 119. U/A negative. Utox negative except for buprenorphine (prescribed). COVID negative. EKG normal sinus rhythm, QTc wnl, 432. Medical Evaluation Reviewed: Yes [facility] Medical History (Updated 02/04/21 @ 08:01 by Roseline Dia NP) Anxiety Arthritis HLD (hyperlipidemia) HTN (hypertension) Muscle spasm of back Opioid use disorder Scoliosis Spinal arthritis Spinal stenosis Surgical History H/O spinal fusion Diagnostics Vital Signs (24Hr):Vital Signs - 24 hr 02/02/21 18:41 02/03/21 00:44 02/03/21 09:14 Temperature 99.5 F 97.8 F 98.3 F Pulse Rate 82 82 95 Respiratory Rate 16 18 16 Blood Pressure 129/65 143/78 H Pulse Oximetry 93 94 94 02/03/21 09:35 02/03/21 17:17 Temperature 98.3 F Pulse Rate 95 74 Respiratory Rate 18 Blood Pressure 143/78 H 166/86 H Pulse Oximetry 95 Body Mass Index 34.4 Labs Results: 02/02/21 21:51 document embedded image 02/02/21 21:51 document embedded image Labs:Laboratory Results - last 48 hr 02/02/21 02/02/21 02/02/21 21:51 21:51 21:51 WBC 5.5 RBC 4.66 Hgb 13.5 Hct 41.8 MCV 89.7 MCH 29.0 MCHC 32.3 RDW 12.2 Plt Count 234 MPV 9.6 Immature Gran % (Auto) 0.4 Neut % (Auto) 54.4 Lymph % (Auto) 35.1 Boone % (Auto) 7.7 Eos % (Auto) 2.0 Baso % (Auto) 0.4 Lymph # (Auto) 1.9 Boone # (Auto) 0.4 Eos # (Auto) 0.1 Baso # (Auto) 0.0 Abs Immat Gran (auto) 0.02 Absolute Neuts (auto) 3.0 Absolute Nucleated RBC 0.000 Nucleated RBC % (auto) 0.0 Sodium 143 Potassium 3.9 Chloride 104 Carbon Dioxide 30 H Anion Gap 13 BUN 13 Creatinine 0.73 Estim Creat Clear Calc 70.8 Estimated GFR > 60 Random Glucose 119 H Calcium 9.0 Troponin I High Sens < 3.5 Urine Color Urine Appearance Urine pH Ur Specific [place] Urine Protein Urine Glucose (UA) Urine Ketones Urine Blood Urine Nitrite Ur Leukocyte Esterase Urine RBC Urine WBC Ur Squamous Epith Cells Urine Bacteria Urine Mucus Urine Opiates Screen Urine Fentanyl Screen Ur Barbiturates Screen Ur Phencyclidine Scrn Ur Amphetamines Screen U Benzodiazepines Scrn Urine Cocaine Screen U Marijuana (THC) Screen COVID-19 (TAHIRA) COVID-19 Incentivyze 02/02/21 02/02/21 02/02/21 23:22 23:22 23:22 WBC RBC Hgb Hct MCV MCH MCHC RDW Plt Count MPV Immature Gran % (Auto) Neut % (Auto) Lymph % (Auto) Boone % (Auto) Eos % (Auto) Baso % (Auto) Lymph # (Auto) Boone # (Auto) Eos # (Auto) Baso # (Auto) Abs Immat Gran (auto) Absolute Neuts (auto) Absolute Nucleated RBC Nucleated RBC % (auto) Sodium Potassium Chloride Carbon Dioxide Anion Gap BUN Creatinine Estim Creat Clear Calc Estimated GFR Random Glucose Calcium Troponin I High Sens Urine Color YELLOW Urine Appearance CLEAR Urine pH 6.0 Ur Specific Se[place]ord 1.025 Urine Protein NEG Urine Glucose (UA) NEG Urine Ketones NEG Urine Blood NEG Urine Nitrite NEG Ur Leukocyte Esterase NEG Urine RBC 1-4 Urine WBC 0-2 Ur Squamous Epith Cells 1+ Urine Bacteria NONE Urine Mucus 4+ Urine Opiates Screen Not Detected Urine Fentanyl Screen Not Detected Ur Barbiturates Screen Not Detected Ur Phencyclidine Scrn Not Detected Ur Amphetamines Screen Not Detected U Benzodiazepines Scrn Not Detected Urine Cocaine Screen Not Detected U Marijuana (THC) Screen Not Detected COVID-19 (TAHIRA) Negative COVID-19 [employer] See Note Meds/Allergies Meds Home Medications Acetaminophen (Acetaminophen 325 Mg Tablet) 650 mg PO Q6H PRN PRN Reason: Headache/Pain Mild Scale (1-3) Al Hydroxide/Mg Hydroxide (Magnesium Hydrox/Alum Hydrox 30 Ml Oral.Susp) 30 ml PO Q6H PRN PRN Reason: Heartburn/Nausea Last Admin: 02/03/21 19:42 Dose: 30 ml Documented by: Atenolol (Atenolol 25 Mg Tablet) 25 mg PO DAILY [facility]; Protocol Last Admin: 02/03/21 09:35 Dose: 25 mg Documented by: Buprenorphine/Naloxone (Buprenorphine/Naloxone 2/0.5mg Film) 1 film SUBLINGUAL BID [facility] Last Admin: 02/03/21 19:42 Dose: 1 film Documented by: Buspirone HCl (Buspirone Hcl 5 Mg Tablet) 15 mg PO TID [facility] Last Admin: 02/03/21 19:43 Dose: 15 mg Documented by: Ibuprofen (Ibuprofen 400 Mg Tablet) 400 mg PO Q6H [facility] Last Admin: 02/04/21 02:55 Dose: 400 mg Documented by: Lorazepam (Lorazepam 0.5 Mg Tablet) 0.5 mg PO Q8H PRN PRN Reason: anxiety, panic attack Last Admin: 02/04/21 04:50 Dose: 0.5 mg Documented by: Magnesium Hydroxide (Milk Of Magnesia 30 Ml Oral.Susp) 30 ml PO DAILY PRN PRN Reason: Constipation Last Admin: 02/03/21 19:42 Dose: 30 ml Documented by: Mirtazapine (Mirtazapine 15 Mg Tablet) 15 mg PO BEDTIME [facility] Last Admin: 02/03/21 19:43 Dose: 15 mg Documented by: Allergies Allergies Allergy/AdvReac Type Severity Reaction Status Date / Time alendronate sodium [Fosamax] AdvReac Unknown increased Verified 09/28/16 00:00 pain antidepressants Allergy Unknown N/V Uncoded 09/28/16 00:00 Mobic Allergy Unknown eye pain Uncoded 09/28/16 00:00 Mental Status Exam Mental Status Exam Narrative: A&O. In hospital gown, good hygiene, overweight. Good eye contact, attentive. No Tics or Tremors. No abnormal involuntary movements. Calm, cooperative, engaged. Non-pressured speech, spontaneous with regular rate and rhythm, normal volume and prosody. No prolonged speech latency or dysarthria. Mood is ?okay,? affect is anxious. Denies SI/SIB/HI upon inquiry. Denies A/VH or delusional thought content. Thoughts are coherent, organized, circumstantial. No known cognitive or memory impairment. Insight/ Judgment fair and adequate. Assessment & Plan Assessment & Plan (1) MDD (major depressive disorder), recurrent episode, moderate: Status: Acute Code(s): F33.1 - Major depressive disorder, recurrent, moderate (2) Panic disorder without agoraphobia: Status: Acute Code(s): F41.0 - Panic disorder [episodic paroxysmal anxiety] (3) Generalized anxiety disorder: Status: Acute Code(s): F41.1 - Generalized anxiety disorder Assessment and Plan: Radha is a 70 y.o. Female who carries a dx of MDD recurrent, panic disorder without agoraphobia, and JERRI. Self presented to ED on 02/02/21 due to chest pain, anxiety, poor sleep, depression, and passive SI. She is currently presenting with sx of panic attacks, perseverative thoughts, depressed mood, and anxiety. She currently denies SI/SIB upon inquiry and says she feels safe. She does not like to be alone, worries about something happening to her and no one being there, and lives alone. She has had recent med trials for anxiety with adverse effects and would like to be in the hospital to have her medications straightened out and obtain outpatient referrals for anxiety. She likes buspar and remeron- buspar was recently increased outpatient, wants to monitor this for benefit. She was also just weaned off gabapentin two days ago and is afraid to trial a new medication at this time. Plan: 1. Continue buspar 15 mg TID (this was recently increased by PCP, wants to give it more time at this dose, denies adverse effects) 2. continue remeron 15 mg QHS for poor sleep, anxiety, depression 3. start ativan 0.5 mg Q8H PRN for panic attacks, reviewed risks and benefits of controlled substance/ benzodiazepines 4. Monitor response to medications. Monitor for safety in the milieu. Discharge on stabilization. Patient seen. Chart reviewed. Discussed with team. Obtain collateral contact info as needed Reason for continued inpatient stay Substantial Risk for: med/psych decompensation dictated By:Roseline Dia NPSigned By:<Electronically signed by Roseline Dia>02/04/21 0807 HOSPITAL COURSE the patient was admitted to the [facility] psychiatric unit on a conditional voluntary by L assessment nurse practitioner. Patient was anxious depressed ruminating on admission with major issues of chronic pain due to disc disease with past back operations having been reported least stable on OxyContin for numerous years destabilized this spring after suddenly being asked to taper off of OxyContin. Patient denies any clear abuse of opiates. She was started on Suboxone intermittently. She has prominent depressed mood anxiety difficulty being alone and has become increasingly dependent on her children which is putting stress on family. The patient had 1 episode of depression and paranoia in the and was recently hospitalized for depression anxiety [facility]. Gabapentin was continued to from [facility] as was mirtazapine. The patient was quite anxious regarding medication and potential side effects. This was a particular issue with her when she was home alone being fearful of having panic anxiety and/or some untoward side effect from medication. This is not the patient's baseline. She was given education regarding depression panic disorder. Because Suboxone was being used significantly for pain syndrome she was given a t.i.d. dose Lorazepam 0.5 mg was given at a low dose during the hospitalization for for intermittent panic. Discussed with patient lorazepam can be habit forming in addition to Suboxone which was given at 2 mg t.i.d.. Low-dose lorazepam was to only be used occasionally for panic and patient was strongly encouraged to work on in outpatient treatment coping strategies to manage her anxiety. This included relaxation breathing she did need much reassurance regarding medication during the hospitalization buying nursing staff and this commercial insurance underwriter. Patient was future oriented by the time of discharge case was reviewed with her son and extensively prior to discharge. He was able to state that this was not his mom's baseline. Reviewed coping strategies for depression anxiety with the patient prior to discharge read material given mirtazapine and BuSpar seemed helpful. Status at Discharge Cognitive/behavioral status at discharge: Patient had some residual anxiety and depressive symptoms but did have much seymour range of affect stress tolerance was significantly improved patient has follow-up psychiatric appointments and also appointment at [facility] for follow-up with Suboxone and the case had been reviewed with Dr. Portillo Functional status at discharge: uses cane/walker Time Spent with Patient Time attestation: Total time spent providing and/or coordinating discharge services: Discharge Plan Discharge Patient Disposition: Home, Self-Care Discharge Diagnosis: MAJOR DEPRESSION RECURRENT PANIC DISORDER Referrals: [facility] [Other] - 02/16/21 3:00 am (Medication Appt scheduled for , 02/16/21 @ 3 PM with Rik Godinez.) [facility] [Other] - 02/17/21 1:00 am (You have been placed on wait list, please call PHP after discharge to follow up as needed on referral.) [facility] [Other] - 02/15/21 10:00 am (Appointment scheduled for 02/15/21 @ 10 AM to [facility] with Keli Taylor. Please call if you need to cancel or re-schedule appt.) [facility] [Other] - 1 Week (Appointment scheduled with Dr. Mattie Portillo on 02/14/21 @ 1:45 PM.) [facility] [Other] - 1 Week (Outpatient therapy appointment scheduled for ) Tien Gay [Primary Care Provider] - 1 Week (02/22 @ 3:15 PM scheduled with Tila ) Discharge Medications: New buspirone 10 mg Tablet 10 mg PO TID 30 Days Qty: 90 RF: 0 melatonin 3 mg Tablet 3 mg PO BEDTIME 30 Days Qty: 30 RF: 0 Continued atenolol 25 mg tablet 1 tab PO DAILY RF: 0 Discontinued buspirone 15 mg tablet 1 tab PO BID RF: 0 buprenorphine-naloxone 2-0.5 mg film 1 film sublingual BID RF: 0 mirtazapine 15 mg tablet 1 tab PO BEDTIME RF: 0 No Action Trintellix 5 mg tablet 5 mg PO BEDTIME Qty: 14 RF: 0 mirtazapine [Remeron] 30 mg tablet 30 mg PO BEDTIME Qty: 30 RF: 0 lorazepam 0.5 mg tablet 0.5 mg PO BID PRN (Reason: anxiety) 14 Days Qty: 30 RF: 1 ibuprofen 400 mg Tablet 400 mg PO BID RF: 0 acetaminophen 500 mg Capsule 1,000 mg PO DAILY RF: 0 buprenorphine-naloxone 2-0.5 mg film 1 film sublingual TID 14 Days Qty: 42 RF: 0 Discharge Orders: Discharge Order (Routine); Ordered 02/10/21 Ordered By: Vincent Nava Diet: advance to usual diet and regular diet Activity on Discharge: Use cane or walker Stand Alone Forms: Patient Portal Discharge page, Community Support Activity Restrictions/Additional Instructions: Please follow-up with your primary care physician tomorrow. If you have any worsening or new symptoms, please return to the emergency room or call 911 Care Plan Goals: improved mood tolerance of anxiety coping skills no self harming thoughts Health Concerns: panic disorder recurrent depression chronic pain Plan of Treatment: therapy focused on education coping strategies partial hospital medication for panic disorder prevention and ttre you have a referral to [facility] for suboxone tx of chronic pain BUY LIDOCAINE PATCH ASPERCREAM OTC Assessment: imroved but need to focus on anxiety tolerance Patient Instructions: Depression (ED), Panic Disorder (DC), Anxiety (ED), Panic Attack (GEN), Depression in Older Adults (DC) Discharge Date/Time: 02/10/21 12:55
--- NOTE | 2021-02-28 11:01 | HO.PSYCHPN ---
Subjective Subjective Date of Service: 02/28/21 Reason For Visit: MDD Diagnostics Vital Signs (24Hr): Body Mass Index 34.4 Labs Results: 02/02/21 21:51 02/02/21 21:51 Medications Allergies Allergies Allergy/AdvReac Type Severity Reaction Status Date / Time alendronate sodium [Fosamax] AdvReac Unknown increased Verified 09/28/16 00:00 pain antidepressants Allergy Unknown N/V Uncoded 09/28/16 00:00 Mobic Allergy Unknown eye pain Uncoded 09/28/16 00:00 Assessment & Plan Assessment & Plan (1) MDD (major depressive disorder), recurrent episode, moderate: Status: Acute Code(s): F33.1 - Major depressive disorder, recurrent, moderate Assessment and Plan: Remeron 15 mg BuSpar change Suboxone to morning aft and bedtime benefit from partial hospital referral discussed with Sub[facility] Clinic [facility] Suboxone 2 mg 3 times a day d/c planning fam mtg coping strategy (2) Panic disorder without agoraphobia: Status: Acute Code(s): F41.0 - Panic disorder [episodic paroxysmal anxiety] (3) Generalized anxiety disorder: Status: Acute Code(s): F41.1 - Generalized anxiety disorder Assessment and Plan: Radha is a 70 y.o. Female who carries a dx of MDD recurrent, panic disorder without agoraphobia, and JERRI. Self presented to ED on 02/02/21 due to chest pain, anxiety, poor sleep, depression, and passive SI. She is currently presenting with sx of panic attacks, perseverative thoughts, depressed mood, and anxiety. She currently denies SI/SIB upon inquiry and says she feels safe. She does not like to be alone, worries about something happening to her and no one being there, and lives alone. She has had recent med trials for anxiety with adverse effects and would like to be in the hospital to have her medications straightened out and obtain outpatient referrals for anxiety. She likes buspar and remeron- buspar was recently increased outpatient, wants to monitor this for benefit. She was also just weaned off gabapentin two days ago and is afraid to trial a new medication at this time. lidocaine for neck and low back pain discussed option cymbalta low dose gabapentin Greater than 50% of the session was spent on counseling and/or coordination of care
== END 2021-02-10 12:55 | disposition home or self-care (01) | DRG 885 ==
LOC: HO.ED 23:30 → HO.PGERI 02-03 16:07
PROVIDERS: Admitting Provider Registered Nurse; Emergency Provider Emergency Medicine; PCP Hospitalist; Visit Provider Registered Nurse
DX: F33.1 Major depressive disorder, recurrent, moderate (principal); F11.20 Opioid dependence, uncomplicated; E78.5 Hyperlipidemia, unspecified; F41.0 Panic disorder [episodic paroxysmal anxiety]; I10 Essential (primary) hypertension; Z20.822 Contact with and (suspected) exposure to COVID-19; Z79.899 Other long term (current) drug therapy
CPT/HCPCS: 36415; 80048; 80307; 81001; 84484; 85025; 87635; 93005; 97161; 99285

== ENCOUNTER 2021-02-13 09:44 | Emergency (ER) | payer MEDICARE, SELFPAY ==
[2021-02-13 09:46] VITALS: BP 146/71; PULSE 76; RESP 20; TEMP 36.8; O2SAT 96; BMI 35.7
--- NOTE | 2021-02-13 09:58 | ED.ANXIETY ---
HPI - Anxiety General Chief Complaint: Anxiety Stated Complaint: ANXIETY Time Seen by Provider: 02/13/21 09:55 Source: patient and old records reviewed Mode of arrival: ambulatory Limitations: no limitations History of Present Illness MD complaint: anxiety Onset (ago): day(s) (2) Severity: moderate Quality: constant Place: home History of similar episodes: Yes Provoking factors: none known Relieving factors: nothing Exacerbating factors: other (being outside, thinking of events) Associated symptoms: denies other symptoms Related Data Home Medications Medication Instructions Recorded Confirmed atenolol 25 mg tablet 1 tab PO DAILY 02/03/21 02/13/21 Previous Rx's Medication Instructions Recorded buprenorphine 2 mg-naloxone 0.5 mg 1 film SUBLINGUAL TID 4 Days #12 ea 02/10/21 sublingual film buspirone 10 mg tablet 10 mg PO TID 30 Days #90 tab 02/10/21 lorazepam 0.5 mg tablet 0.5 mg PO BID PRN #10 tab 02/10/21 lorazepam 0.5 mg tablet 0.5 mg PO BID PRN #14 tab 02/10/21 lorazepam 0.5 mg tablet (Ativan) 0.5 mg PO BID PRN #10 tab 02/10/21 melatonin 3 mg tablet 3 mg PO BEDTIME 30 Days #30 tab 02/10/21 mirtazapine 15 mg tablet 1 tab PO BEDTIME #30 tab 02/10/21 Allergies Allergy/AdvReac Type Severity Reaction Status Date / Time alendronate sodium [Fosamax] AdvReac Unknown increased Verified 09/28/16 00:00 pain antidepressants Allergy Unknown N/V Uncoded 09/28/16 00:00 Mobic Allergy Unknown eye pain Uncoded 09/28/16 00:00 Review of Systems Review of Systems: Constitutional : No Fever, No Chills ENT/Mouth : No Ear Pain, No Nasal Congestion, No sore throat Eyes: No Eye Pain, No Swelling, No Redness Cardiovascular : No Chest Pain, No SOB Respiratory : No Cough, No Sputum, No Dyspnea Gastrointestinal : No Nausea, No Vomiting, No Diarrhea, No Hematochezia, No Melena Genitourinary : No Dysuria, No Urinary Frequency, No Hematuria Musculoskeletal : No Myalgias Skin : No Skin Lesions, No rash Neuro : No Weakness, No Numbness, No Paresthesias, No Dizziness, No Headache Psych : positive Anxiety, positive Depression, no SI/HI Heme/Lymph: No Lymphadenopathy Endocrine : No Polyuria, No Polydipsia All other systems reviewed and are negative [facility] Past Medical History Attestation statement: The following information was validated with the patient. Medical History Anxiety Arthritis HLD (hyperlipidemia) HTN (hypertension) Muscle spasm of back Opioid use disorder Scoliosis Spinal arthritis Spinal stenosis Surgical History H/O spinal fusion Family History Family History Father CHF (congestive heart failure) Mother CHF (congestive heart failure) Social History Social History Household Members: None Housing: House Do you presently have visiting nurse or other home services: No Alcohol intake: never Patient Tobacco Use Status: Never used Tobacco Substance Use Type: Opiates Advance Directives: Yes Advance Directives Information Provided: No Advance Directives on File: No service: No Sexual orientation: Straight/Heterosexual Physical Exam Vital Signs: Vital Signs: Last Vital Signs Temp 98.2 F 02/13/21 09:46 Pulse 76 02/13/21 09:46 Resp 20 02/13/21 09:46 BP 146/71 H 02/13/21 09:46 Pulse Ox 96 02/13/21 09:46 Body Mass Index 35.7 Appearance: Alert. Oriented X3. No acute distress. Very anxious Eyes: Pupils equal, round and reactive to light. ENT: Pharynx normal. Neck: Normal inspection. Neck supple. CVS: Normal heart rate and rhythm. Pulses normal. Respiratory: No respiratory distress. Breath sounds normal. Abdomen: Soft and non-tender. Skin: Skin warm and dry. Normal skin color. Normal skin turgor. Extremities: No lower extremity edema. No calf ttp Neuro: Oriented X 3. No motor deficit. No sensory deficit. CN2-12 intact Psych: no SI/HI very anxious Course Course Course Narrative: cleared by CARE team MDM - Anxiety MDM Narrative Medical decision making narrative: 70 yo female with JERRI, MDD, anxiety just admitted for med management to for JERRI - was taking remeron, buspar - returns for anxiety again today will consult CARE team Lab Data Labs: Lab Results 02/13/21 Range/Units 11:33 COVID-19 ([facility]) Negative (Negative) COVID-19 Clin Com See Note Discharge Plan Discharge Clinical Impression: Acute anxiety Patient Disposition: Home, Self-Care Instructions: Anxiety (ED) Additional Instructions: return to ED for any worsening symptoms or concerns please follow up with your mental health providers Prescriptions: No Action atenolol 25 mg tablet 1 tab PO DAILY RF: 0 buspirone 10 mg Tablet 10 mg PO TID 30 Days Qty: 90 RF: 0 mirtazapine 15 mg tablet 1 tab PO BEDTIME Qty: 30 RF: 0 buprenorphine-naloxone 2-0.5 mg film 1 film sublingual TID 4 Days Qty: 12 RF: 0 melatonin 3 mg Tablet 3 mg PO BEDTIME 30 Days Qty: 30 RF: 0 lorazepam 0.5 mg tablet 0.5 mg PO BID PRN (Reason: anxiety) Qty: 10 RF: 1 lorazepam 0.5 mg tablet 0.5 mg PO BID PRN (Reason: PANIC ATTACK) Qty: 14 RF: 0 lorazepam [Ativan] 0.5 mg tablet 0.5 mg PO BID PRN (Reason: anxiety) Qty: 10 RF: 0
[2021-02-13 11:56] LABS: COVID-19 Test Negative (Negative); IDNOW Serial# 9DD0AD1C
[2021-02-13] MEDS: LORazepam 0.5 MG TABLET PO (12:17)
--- NOTE | 2021-02-13 12:22 | PC.NURSE ---
Pt medicated as charted for persistent anxiety, pacing around POD and reports feeling uncomfortable Radha from CARE team speaking with pt at this time.
--- NOTE | 2021-02-13 15:09 | MHC.CARE ---
Patient self-presented to [facility] ED, reported she was discharged from S[facility] on Saturday and is experiencing severe anxiety, she feels unable to manage the symptoms. CARE Team met with patient in 3, after several lengthy conversations with patient, it is apparent that she does not meet the criteria for an inpatient psychiatric hospitalization at this time. She was alert, oriented, easily engaged, eye contact intermittent and intense, affect flat, thought process ruminative. Patient reported good sleep and appetite, is managing ADLs, is getting out of the house to shop for gifts, stated minimal depression but expressed hopelessness that she will return to her normal self and denied suicidal ideation, I am a [employer]. Discussion regarding PRN Ativan was circular and confusing, she believes it to be beneficial but is afraid of becoming addicted, wants an alternative medication then stated a clear preference for Ativan. Patient did appear quite anxious and stated that the only thing that will relieve her symptoms would be hospitalization. Stated she wants to go back to [facility] due to the fact that she was allowed to have a roommate. Provided education about admission criteria and benefits of using resources and supports that are available at home and in the community. Reviewed S[facility] discharge packet with patient, upcoming appointments, practiced breathing exercises, mindfulness and other calming strategies. Provided written information to support these techniques as well as distress tolerance. In addition, patient was given # for Warm Line and two phone natalie/websites for self help. ED provider consulted and in agreement with plan of care. Plan is for discharge to home, she will ask her son to spend the night with her. She has several appointments this week, CARE Team will reach out to [facility] to see if patient?s 02/17 intake appointment can be moved sooner. Patient was encouraged to call the warm line or [facility] Crisis for support and use her available resources. She may represent to this ED or [facility] seeking hospitalization. Patient brought home via L[facility], she did not feel comfortable driving after being given medication today.
== END 2021-02-13 14:25 | disposition home or self-care (01) ==
PROVIDERS: Emergency Provider Emergency Medicine; PCP Hospitalist
DX: F41.9 Anxiety disorder, unspecified (principal); I10 Essential (primary) hypertension; Z79.899 Other long term (current) drug therapy; Z20.822 Contact with and (suspected) exposure to COVID-19
CPT/HCPCS: 36415; 87635; 99283; 99284

== ENCOUNTER → 2021-02-14 13:52 | Outpatient (BNVA) | payer MEDICARE, SELFPAY | PROVIDERS: Visit Provider Internal Medicine | DX: Z51.81 Encounter for therapeutic drug level monitoring (principal); F41.1 Generalized anxiety disorder; F11.99 Opioid use, unspecified with unspecified opioid-induced disorder | CPT/HCPCS: 80305; 99212 ==

== ENCOUNTER → 2021-02-21 14:54 | Outpatient (BNVA) | payer MEDICARE, SELFPAY | PROVIDERS: PCP Hospitalist; Visit Provider Internal Medicine | DX: F11.20 Opioid dependence, uncomplicated (principal); F41.0 Panic disorder [episodic paroxysmal anxiety]; F33.1 Major depressive disorder, recurrent, moderate; Z51.81 Encounter for therapeutic drug level monitoring; Z79.01 Long term (current) use of anticoagulants | CPT/HCPCS: 80305; 99212 ==

== ENCOUNTER 2021-03-07 13:35 | Outpatient (REF) | payer MEDICARE, SELFPAY ==
[2021-03-07 17:26] LABS: Fentanyl, urine Not Detected (Not Detect)
== END 2021-03-07 13:36 | disposition home or self-care (01) ==
LOC: HO.LNP 13:35
PROVIDERS: PCP Hospitalist; Visit Provider Internal Medicine
DX: F11.99 Opioid use, unspecified with unspecified opioid-induced disorder (principal); Z79.899 Other long term (current) drug therapy
CPT/HCPCS: 80307; 99212

== ENCOUNTER 2021-03-16 09:45 | Outpatient (RCR) | payer MEDICARE, SELFPAY ==
--- NOTE | 2021-02-28 11:18 | P.HPPSP_ITS ---
HPI Chief Complaint: Anxiety, Panic D/o, Depression Sources of Information: patient interviewed and chart reviewed HPI Subjective Notes: Jama Warning and Conditional Voluntary Guardianship: No Medical Problems Affecting Mental Status: No Narrative: During her last inpatient admission she reported precipitating factor as her PCP taking her off her opioid pain medication ?abruptly? in October 2020 and that it ?gives me anxiety just thinking about that.? She then started suboxone for pain management.??I evaluated the patient this morning and upon interview she reports she has been ?anxious.? Sleep in restless, will wake up and have difficulty falling back to sleep. Her remeron was recently increased to 30 mg, unsure if this is helping. Says her anxiety will get so intolerable that it leads to her feeling depressed, has difficulty being alone. She is tearful and says ?I could drive my car straight to the hospital with how i feel.?? Says she likes the hospital because it gives her a ?secure feeling, it?s unbelievable.? Says it was the ?same feeling? she had being at her granddaughters birthday, ?it was like being with my family.? Says she worries about what will happen to her if she is alone. Precipitating factors include that her ?s best friend (lives across from her) is in the hospital, terminal health issues, may not come home, says she looks across the street and thinks of her , ?my heart sinks.?? Also says ?I almost just lost my only sister,? was hospitalized due to gallstones, now doing well.? During her last inpatient admission she reported precipitating factor as her PCP taking her off her opioid pain medication ?abruptly? in October 2020 and that it ?gives me anxiety just thinking about that.? She then started suboxone for pain management.?? Current med regimen: Suboxone 2-0.5 mg film TID (chronic pain), buspar 10 mg BID (recently decreased from 15 mg due to headaches), ativan 0.5 mg BID PRN (has been taking 0.25 mg BID though), melatonin 3 mg QHS, remeron 30 mg QHS (incr eased 02/16/21). Prescriber is Rik Godinez.? Past meds: Cymbalta 30 mg QD (did not take, afraid of SE), gabapentin 200 mg TID (felt worsening anxiety, felt ?woozy?), hydroxyzine 10 mg QHS PRN (?felt awful?), clonidine (?made me more anxious?), venlafaxine 37.5 mg BID (GI distress). Has remote hx of psychotropic medication for depression in the (says years ago ?they had me on prozac, zoloft and all those,? ?gave me stomach pains?). PPH: -Hx of multiple recent crisis evals, IPLOC at [facility] S1 on 02/03/21-02/13/21 for acute anxiety. Her buspar was increased but she has since gone back down to 10 mg due to headaches. She was also given low dose ativan PRN. Prior to that she was IPLOC at [facility], trialed on gabapentin. In past, she has been seen by crisis for anxiety, feeling overwhelmed, poor sleep, not feeling safe when alone. Her first crisis eval was 12/29/20 due to anxiety, panic, stating ?I cant live like this,? disposition was [facility] respite but insurance would not cover her stay.? -Has OP services at [facility], prescriber is Rik Manzanares -Remote hx of IPLOC in 1989 at [facility] and 1990 at [facility], says she then saw a therapist for 2 years and after that I was cured of it.? Reports she was put on medication at the time that was helpful but does not remember what it was called, PCP took her off these.? SH: -She is , lives alone. Has 2 sons (one in [place], other in [place]), 5 grandchildren. Has friends nearby and talks to her sister.? -Her , Sheldon, suddenly in 2014 s/p intracranial bleeding after he fell on black ice in their driveway getting newspaper.? 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. Had to stop working at age 55 due to chronic back pain, obtained SSDI. PMH: -Dx with scoliosis, spinal stenosis, arthritis, hx of back surgeries. She was prescribed opioid medications for many years but PCP took her off them ?abruptly? and she was referred to a suboxone clinic, [facility]. -Has HTN, on atenolol 25 mg QD. -Hx of hyperlipidemia, overweight -Labs 02/02/21: CBC wnl, CMP wnl except Co2 H 30, random glucose H 119. U/A negative. Utox negative except for buprenorphine (prescribed). COVID negative. EKG normal sinus rhythm, QTc wnl, 432. Medical Evaluation Reviewed: No [facility] Medical History (Updated 02/27/21 @ 14:46 by Mattie Portillo MD) Anxiety Arthritis HLD (hyperlipidemia) HTN (hypertension) Muscle spasm of back Opioid use disorder Scoliosis Spinal arthritis Spinal stenosis Surgical History H/O spinal fusion Meds/Allergies Allergies Allergies Allergy/AdvReac Type Severity Reaction Status Date / Time alendronate sodium [Fosamax] AdvReac Unknown increased Verified 09/28/16 00:00 pain antidepressants Allergy Unknown N/V Uncoded 09/28/16 00:00 Mobic Allergy Unknown eye pain Uncoded 09/28/16 00:00 Mental Status Exam Mental Status Exam Narrative: A&O. Casual dress, well kempt, overweight. Good eye contact, attentive. No Tics or Tremors. No abnormal involuntary movements. Calm, cooperative, engaged. Non-pressured speech, spontaneous with regular rate and rhythm, normal volume and prosody. No prolonged speech latency or dysarthria. Mood is ?nervous,? affect is anxious. Denies SI/SIB/HI upon inquiry. Denies A/VH or delusional thought content. Thoughts are coherent, organized, circumstantial. No known cognitive or memory impairment. Insight/ Judgment fair and adequate. Assessment & Plan Assessment & Plan (1) Generalized anxiety disorder: Status: Acute Code(s): F41.1 - Generalized anxiety disorder (2) Panic disorder without agoraphobia: Status: Acute Code(s): F41.0 - Panic disorder [episodic paroxysmal anxiety] (3) MDD (major depressive disorder), recurrent episode, moderate: Status: Acute Code(s): F33.1 - Major depressive disorder, recurrent, moderate Assessment and Plan: Radha is a 70 y.o. Female who carries a dx of MDD recurrent, panic disorder without agoraphobia, and JERRI. She is currently presenting with sx of panic attacks, perseverative thoughts, depressed mood, and anxiety. She currently denies SI/SIB upon inquiry and says she feels safe. She does not like to be alone, worries about something happening to her and no one being there, and lives alone. She reports her OP prescriber does not want her to rely on ativan, has been taking half a tab but reports positive benefit, wants to go back up to 0.5 mg BID. Unable to tolerate higher dose of buspar. Recently increased remeron to 30 mg, unsure if it is helping. Has had multiple trials on meds for anxiety but reports side effects or lack of efficacy, sensitive to GI side effects. Plan: 1. Continue OP med regimen, needs refills. Start trintellix 5 mg QHS for sx of anxiety, depression and increase as tolerated. 2. Monitor response to medications. Patient seen. Chart reviewed. Discussed with team. Obtain collateral contact info?as needed Certification I certify that partial hospital treatment is medically necessary due to the symptoms and problems resulting from the patient's mental illness and the failure to treat the patient at the partial hospital level of care would likely result in the patient requiring inpatient psychiatric care which could not be prevented at a less intensive level of care.
[2021-03-01 11:19] VITALS: BMI 34.0
--- NOTE | 2021-03-01 11:52 | PC.ADMIT ---
Patient is a 70 year old female who lives alone who was referred to [facility] by [facility] inpatient unit where patient was admitted d/t severe anxiety with panic and depression. Patient was taken off her pain medication in October 2020 which she reports has been on for many years and put on Suboxone for pain management. Patient often presents to local emergency rooms with complaints of severe anxiety with chest pain at times. Patient has fears about living alone and is feeling isolated. Her in 2013 from an acute head injury. In addition, patient believes she is a burden to her son whom lives close by and is afraid to visit her other son who lives further away whom has invited her to stay with him as long as she would like however she does not take him up on the offer as she is afraid of getting Covid. She reports that she has been vaccinated. Patient is alert and oriented x4. Presents with depressed mood, anxious affect. Speech is somewhat pressured. Reports passive SI, no plan or intent. Patient has the crisis number if needed. Patient gave verbal permisison to email her a coipy of her safety plan. Medications reconciled with patient and In patient medical record. Patient reports taking medications as prescribed.
--- NOTE | 2021-03-02 12:33 | HO.PHPPROGNO ---
Subjective Subjective Date of Service: 03/02/21 Reason For Visit: Anxiety, Panic D/o, Depression Subjective Notes: Jama Warning Guardianship: No Medical Problems Affecting Mental Status: No Interim History: Ms. Jarvis is reporting side effects of nausea from Trintellix. She has only taken it 1 night, and would like to stop it. She is also concerned about the cost of the medication and affordability, as it cost her over 200 dollars to [facility] prescription. She reports feeling increased anxiety today, states ?I am not feeling well today ?. She then stated that she may drive to [facility] Emergency Room later today, ?because I am not having a good day ?. She denies any thought of harm to self or others, states that she is a [employer] and would never attempt to hurt herself in any way. She states that she feels her anxiety is not currently under control and she may need a med adjustment. Medication Compliance: Yes Side effects from medications: Yes (nausea from trintellix) Attending Groups: Yes Review of Systems Acute medical concerns: No Medical Review of Systems: unchanged Review of Systems Review of Systems Yes all other systems are reviewed and are negative Constitutional: Reports as per HPI and Reports no additional constitutional complaints Eyes: Reports no additional eye complaints Reports Normal hearing present Cardiovascular: Reports no additional cardiovascular complaints Respiratory: Reports no additional respiratory complaints Gastrointestinal: Reports nausea (believes it is related to trintellix. ) Genitourinary: Reports no additional female genitourinary complaints Musculoskeletal: Reports no additional musculoskeletal complaints Skin/Breast: Reports as per HPI Reports Normal hearing present Psychiatric: Reports anxiety (reports increased anxiety) and Reports difficulty concentrating Endocrine: Reports no additional endocrine complaints Hematologic/Lymphatic: Reports no additional hematologic/lymphatic complaints Mental Status Exam Mental Status Exam Narrative: Met with person over phone. She was alert and oriented x4. Extremely anxious mood and affect. Denies any type of SI, HI. Denies any type of hallucinations. No delusional thought evident in conversation. Speech normal rate and rhythm, articulate. Cooperative with encounter. No evidence of impaired cognition noted. Judgement: Fair Diagnostics Vital Signs (24Hr): Body Mass Index 34.0 Assessment & Plan Assessment & Plan (1) Generalized anxiety disorder: Status: Acute Code(s): F41.1 - Generalized anxiety disorder Assessment and Plan: Patient endorses feeling nervous, on edge, unable to stop or control worrying, excessive worry, trouble relaxing, fatigue, restlessness, fear of impending doom. She reports that she is utilizing medications as prescribed. Reports that she believes Trintellix has added to her anxiety, and has caused nausea. Patient reports that she has a difficult time managing her medications, and that doing so makes her nervous. She reports that she is not convinced Trintellix will help her, and wishes to stop it. She reports that she does not feel unsafe at this time, but that she still wants to drive to [facility] ED, as she believes it will help ease her anxiety. (2) MDD (major depressive disorder), recurrent episode, moderate: Status: Acute Code(s): F33.1 - Major depressive disorder, recurrent, moderate Assessment and Plan: 1. Discontinue trintellix. 2. Follow-up as per protocol. 3. May consider use of scheduled long-acting benzodiazepine such as Klonopin or Valium, or consider using low-dose quetiapine in order to help address anxiety and feeling overwhelmed. Will explore further during next visit. 4. No safety concerns at this time. Patient educated on: diagnosis, medication risk/benefits and therapeutic strategies Informed Consent: understands Reason for contiued partial hosp. stay Substantial Risk for: inability to function, rapid decompensation and med/psych decompensation Certification I certify that partial hospital treatment is medically necessary due to the symptoms and problems resulting from the patient's mental illness and the failure to treat the patient at the partial hospital level of care would likely result in the patient requiring inpatient psychiatric care which could not be prevented at a less intensive level of care. Greater than 50% of the session was spent on counseling and/or coordination of care Discharge Plan Discharge Attending provider: Vincent Nava Primary Care Provider: Tien Gay Medications: New Trintellix 5 mg tablet 5 mg PO BEDTIME Qty: 14 RF: 0 mirtazapine [Remeron] 30 mg tablet 30 mg PO BEDTIME Qty: 30 RF: 0 Continued lorazepam 0.5 mg tablet 0.5 mg PO BID PRN (Reason: anxiety) 14 Days Qty: 30 RF: 1 Discontinued mirtazapine 15 mg tablet 1 tab PO BEDTIME Qty: 30 RF: 0 lorazepam 0.5 mg tablet 0.5 mg PO BID PRN (Reason: PANIC ATTACK) Qty: 14 RF: 0 lorazepam [Ativan] 0.5 mg tablet 0.5 mg PO BID PRN (Reason: anxiety) Qty: 10 RF: 0 No Action atenolol 25 mg tablet 1 tab PO DAILY RF: 0 buspirone 10 mg Tablet 10 mg PO TID 30 Days Qty: 90 RF: 0 melatonin 3 mg Tablet 3 mg PO BEDTIME 30 Days Qty: 30 RF: 0 ibuprofen 400 mg Tablet 400 mg PO BID RF: 0 acetaminophen 500 mg Capsule 1,000 mg PO DAILY RF: 0 buprenorphine-naloxone 2-0.5 mg film 1 film sublingual TID 14 Days Qty: 42 RF: 0 Referrals: Tien Gay [Primary Care Provider] - 1 Week Telehealth Telehealth Location of provider rendering services: practice address Location of patient: address on file Patient Identification confirmed using: Name, : Yes Telehealth method: voice only Patient verbally consented to treatment: Yes Patient verbally consented to billing insurance company: Yes Patient informed of any privacy concerns related to visit: Yes Time spent with patient (mins): 15
--- NOTE | 2021-03-08 13:55 | P.PNPSP_ITS ---
Subjective Subjective Date of Service: 03/08/21 Reason For Visit: Anxiety, Panic D/o, Depression Guardianship: No Medical Problems Affecting Mental Status: No Interim History: Client reports she continues with anxiety and depressive symptoms. She reports that she is not sure if it is the Suboxone causing anxiety and insomnia, as she had heard that those were potential side effects. She reports that also could simply be due to the fact that she is struggling with loneliness. She reports that she only took the Trintellix 1 night, because ?I felt funny the next day ?. She states she has I fear of starting new medications. She states she is continuing with Remeron 30 mg at bedtime, and using lorazepam. She states that she does not take the prescribed dose of lorazepam, but rather cuts it in half. Medication Compliance: Intermittent Side effects from medications: No Attending Groups: Yes Review of Systems Acute medical concerns: No Medical Review of Systems: unchanged Review of Systems Review of Systems Yes all other systems are reviewed and are negative Mental Status Exam Mental Status Exam Narrative: Well-developed, overweight female, in NAD. Alert and oriented x4. Eye contact within normal limits. No involuntary movements noted, motor activity calm. Appropriately dressed, well groomed. Manner in behavior calm and cooperative. Speech was fluent, unimpaired, normal rate and rhythm. Mood some slight depression, admits to poor sleep, denies changes in energy. Denies change in concentration or appetite. Does report having some anhedonia. Denies any type of thought of harm to self or others at this time. Thought process and associations linear, goal-directed. Thought content normal, future oriented. No evidence of any type of delusional thoughts or hallucinations observed or reported. Patient appears to be reliable historian. Judgment and insight fair. Ambulation not observed. Patient Appearance: Well Grooomed and Appropriate Diagnostics Vital Signs (24Hr): Body Mass Index 34.0 Assessment & Plan Assessment & Plan (1) Generalized anxiety disorder: Status: Acute Code(s): F41.1 - Generalized anxiety disorder Assessment and Plan: Patient reports continues with anxiety. States she has been cutting the lorazepam tablets in half rather than take the full dose. Patient was encouraged to take the full dose as needed. Patient reports she believes much of her anxiety is due to isolation and loneliness. Discussed ways to decrease loneliness, including participation in her local senior center. Set a goal to go to senior center at least 1 time within next week. Patient was agreeable to this. (2) MDD (major depressive disorder), recurrent episode, moderate: Status: Acute Code(s): F33.1 - Major depressive disorder, recurrent, moderate Assessment and Plan: Patient has stopped taking Trintellix, not willing to start another antidepressant. Is taking Remeron at bedtime. Assessment and Plan: 1. Continue current medications as prescribed, patient no longer taking Trintellix. 2. Patient was encouraged to use full dose of lorazepam p.r.n., as she reports continued anxiety. 3. Strategies for decreasing isolation and loneliness encouraged, patient plans to attend local [facility] at least 1 time within next week. 4. Follow up as per protocol. Patient educated on: diagnosis, medication risk/benefits and therapeutic strategies Informed Consent: understands Reason for contiued partial hosp. stay Substantial Risk for: inability to function and med/psych decompensation Certification I certify that partial hospital treatment is medically necessary due to the symptoms and problems resulting from the patient's mental illness and the failure to treat the patient at the partial hospital level of care would likely result in the patient requiring inpatient psychiatric care which could not be prevented at a less intensive level of care. Greater than 50% of the session was spent on counseling and/or coordination of care Discharge Plan Discharge Attending provider: Vincent Nava Primary Care Provider: Tien Gay Medications: New Trintellix 5 mg tablet 5 mg PO BEDTIME Qty: 14 RF: 0 mirtazapine [Remeron] 30 mg tablet 30 mg PO BEDTIME Qty: 30 RF: 0 Continued lorazepam 0.5 mg tablet 0.5 mg PO BID PRN (Reason: anxiety) 14 Days Qty: 30 RF: 1 Discontinued mirtazapine 15 mg tablet 1 tab PO BEDTIME Qty: 30 RF: 0 lorazepam 0.5 mg tablet 0.5 mg PO BID PRN (Reason: PANIC ATTACK) Qty: 14 RF: 0 lorazepam [Ativan] 0.5 mg tablet 0.5 mg PO BID PRN (Reason: anxiety) Qty: 10 RF: 0 No Action atenolol 25 mg tablet 1 tab PO DAILY RF: 0 buspirone 10 mg Tablet 10 mg PO TID 30 Days Qty: 90 RF: 0 melatonin 3 mg Tablet 3 mg PO BEDTIME 30 Days Qty: 30 RF: 0 ibuprofen 400 mg Tablet 400 mg PO BID RF: 0 acetaminophen 500 mg Capsule 1,000 mg PO DAILY RF: 0 buprenorphine-naloxone 2-0.5 mg film 1 film sublingual TID 14 Days Qty: 42 RF: 0 Referrals: Tien Gay [Primary Care Provider] - 1 Week Telehealth Telehealth Location of provider rendering services: practice address Location of patient: address on file Patient Identification confirmed using: Name, : Yes Telehealth method: video Patient verbally consented to treatment: Yes Patient verbally consented to billing insurance company: Yes Patient informed of any privacy concerns related to visit: Yes Time spent with patient (mins): 15
--- NOTE | 2021-03-16 12:47 | HO.PHPPROGNO ---
Subjective Subjective Date of Service: 03/16/21 Reason For Visit: Anxiety, Panic D/o, Depression Guardianship: No Medical Problems Affecting Mental Status: No Interim History: Radha reports ongoing anxiety, although she feels it is manageable. She reports that she believes it is dose dependent regarding Suboxone. She explains that when her Suboxone was increased from 4 mg daily to 6 mg, she has noticed an increase in anxiety symptoms. Reports feeling safe, no thoughts of harm to self or others, no safety concerns at this time. Medication Compliance: Yes Side effects from medications: Yes (Reports that she believes increased Suboxone has caused increased anxiety s) Attending Groups: Yes Review of Systems Acute medical concerns: No Medical Review of Systems: unchanged Review of Systems Review of Systems Yes all other systems are reviewed and are negative Mental Status Exam Mental Status Exam Narrative: Unable to fully assess patient, due to her having difficulty logging in to meeting. Spoke with client on phone. Patient Orientation: Person, Place, Time and Situation Level of Consciousness: Awake, Appropriate and Alert Patient Behavior: Appropriate, Cooperative and Anxious Mood Description: Anxious and Nervous Affect Description: Appropriate and Anxious Patient Cognition Impaired: No Ability to Follow Directions: Excellent Speech Pattern: Clear, Appropriate and Coherent Memory Description: Intact Hallucinations: None Delusions: Not Present Thought Process: Intact Thought Content: positive for Preoccupation (focused on fear of being alone) Depressive Symptoms: Increased Anxiety, Diff. Making Decisions and Unhappiness Judgement: Fair Diagnostics Vital Signs (24Hr): Body Mass Index 34.0 Assessment & Plan Assessment & Plan (1) MDD (major depressive disorder), recurrent episode, moderate: Status: Acute Code(s): F33.1 - Major depressive disorder, recurrent, moderate Assessment and Plan: Patient reports feeling disappointed and discouraged. States this is due to not being able to drive to her son's house this weekend to see her grandchildren. Reports less depression, states that her main issue right now is anxiety. Denies any type of thoughts of self-harm in any way, no safety concerns at this time. (2) Generalized anxiety disorder: Status: Acute Code(s): F41.1 - Generalized anxiety disorder Assessment and Plan: Patient reports continued use of lorazepam, although states that she is using it sparingly. Reports being afraid at night when she goes to bed, that she will wake up full of anxiety. She appears preoccupied with this at times. She is also preoccupied with visiting her son it is and grandchildren. She reports that she calls her son continuously asking him to help her with rides or to see her grandchildren. She states that she understands simple sums love her and do their best, but that she finds herself becoming extremely lonely and then calling them asking to see the grandchildren. We discussed ways to overcome this loneliness. Patient reports that she did not go to [facility] over the past week, as her sister had been sick in the hospital. Patient was encouraged to go to [facility], and to reach out to friends. She stated that she would do so. She states that her outpatient provider has told her that they are considering increasing BuSpar to 15 mg 3 times daily. She stated that she would discuss this with her outpatient provider going forward. She does report though that overall she feels she has learned healthier coping skills in managing her anxiety and depressive symptoms. (3) Opioid use disorder: Status: Acute Code(s): F11.99 - Opioid use, unspecified with unspecified opioid-induced disorder Assessment and Plan: Patient reports that she believes that since her suboxone was increased recently from 4mg-1mg sl daily to 6mg-1.5mg daily, she has had increased anxiety as a result. She reports she was considering cutting down her dose. She takes it as 2 mg-0.5 mg SL, TID. She says that she thinks she may stop taking it 3 times daily and decrease it to b.i.d.. She does have an appointment at [facility] [place] this coming Saturday. She was encouraged to continue taking it as prescribed, and to discuss this with prescriber at the clinic when she goes to her appointment next Saturday. She was agreeable to this plan. (4) Panic disorder without agoraphobia: Status: Acute Code(s): F41.0 - Panic disorder [episodic paroxysmal anxiety] Assessment and Plan: 1. Continue all current medications as prescribed. 2. Follow-up with outpatient psychiatric provider and [facility] for Subox[facility]. 3. Patient appears stable for discharge from [facility] at this time. She will follow up with outpatient providers going forward. Reason for contiued partial hosp. stay Substantial Risk for: stable for discharge Certification I certify that partial hospital treatment is medically necessary due to the symptoms and problems resulting from the patient's mental illness and the failure to treat the patient at the partial hospital level of care would likely result in the patient requiring inpatient psychiatric care which could not be prevented at a less intensive level of care. Greater than 50% of the session was spent on counseling and/or coordination of care Discharge Plan Discharge Attending provider: Vincent Nava Primary Care Provider: Tien Gay Medications: New Trintellix 5 mg tablet 5 mg PO BEDTIME Qty: 14 RF: 0 mirtazapine [Remeron] 30 mg tablet 30 mg PO BEDTIME Qty: 30 RF: 0 Continued lorazepam 0.5 mg tablet 0.5 mg PO BID PRN (Reason: anxiety) 14 Days Qty: 30 RF: 1 Discontinued mirtazapine 15 mg tablet 1 tab PO BEDTIME Qty: 30 RF: 0 lorazepam 0.5 mg tablet 0.5 mg PO BID PRN (Reason: PANIC ATTACK) Qty: 14 RF: 0 lorazepam [Ativan] 0.5 mg tablet 0.5 mg PO BID PRN (Reason: anxiety) Qty: 10 RF: 0 No Action atenolol 25 mg tablet 1 tab PO DAILY RF: 0 buspirone 10 mg Tablet 10 mg PO TID 30 Days Qty: 90 RF: 0 melatonin 3 mg Tablet 3 mg PO BEDTIME 30 Days Qty: 30 RF: 0 ibuprofen 400 mg Tablet 400 mg PO BID RF: 0 acetaminophen 500 mg Capsule 1,000 mg PO DAILY RF: 0 buprenorphine-naloxone 2-0.5 mg film 1 film sublingual TID 14 Days Qty: 42 RF: 0 Referrals: Tien Gay [Primary Care Provider] - 1 Week Telehealth Telehealth Location of provider rendering services: practice address Location of patient: address on file Patient Identification confirmed using: Name, : Yes Telehealth method: voice only Patient verbally consented to treatment: Yes Patient verbally consented to billing insurance company: Yes Patient informed of any privacy concerns related to visit: Yes Time spent with patient (mins): 15
--- NOTE | 2021-03-21 08:35 | PC.NURSE ---
Patient discharged from [facility] on 03/16/21. Reviewed patient discharge medications with patient. Patient reports taking medications as prescribed. Patient denied SI, No safety concerns. Patient feeling anxious about discharge. Thinking about visiting her son in [place].
== END 2021-03-16 23:55 | disposition home or self-care (01) ==
LOC: HO.PHPA 09:45
PROVIDERS: PCP Hospitalist; Visit Provider Psychiatry & Neurology Psychiatry
DX: F33.1 Major depressive disorder, recurrent, moderate (principal); F41.1 Generalized anxiety disorder; F41.0 Panic disorder [episodic paroxysmal anxiety]; G89.29 Other chronic pain; M54.9 Dorsalgia, unspecified; Z79.891 Long term (current) use of opiate analgesic; Z79.899 Other long term (current) drug therapy
CPT/HCPCS: 90853

== ENCOUNTER → 2021-03-21 14:24 | Outpatient (BNVA) | payer MEDICARE, SELFPAY | PROVIDERS: Visit Provider Internal Medicine | DX: F11.99 Opioid use, unspecified with unspecified opioid-induced disorder (principal); G89.4 Chronic pain syndrome; M41.80 Other forms of scoliosis, site unspecified; M96.1 Postlaminectomy syndrome, not elsewhere classified; M81.0 Age-related osteoporosis without current pathological fracture; I10 Essential (primary) hypertension; E78.5 Hyperlipidemia, unspecified; F41.1 Generalized anxiety disorder; F33.1 Major depressive disorder, recurrent, moderate; Z88.8 Allergy status to other drugs, medicaments and biological substances | CPT/HCPCS: 80305; 99212 ==

== ENCOUNTER → 2021-04-04 10:42 | Outpatient (BNVA) | payer MEDICARE, SELFPAY | PROVIDERS: Visit Provider Internal Medicine | DX: F11.99 Opioid use, unspecified with unspecified opioid-induced disorder (principal); G89.4 Chronic pain syndrome; M81.0 Age-related osteoporosis without current pathological fracture; I10 Essential (primary) hypertension; E78.5 Hyperlipidemia, unspecified; F41.9 Anxiety disorder, unspecified | CPT/HCPCS: 80305; 99212 ==

== ENCOUNTER 2021-04-22 10:43 | Emergency (ER) | payer MEDICARE, SELFPAY ==
[2021-04-22 10:56] VITALS: BP 130/79; PULSE 73; RESP 18; TEMP 36.2; O2SAT 96; BMI 34.0
[2021-04-22 11:46] VITALS: BP 160/90; PULSE 69; RESP 16; TEMP 37.4; O2SAT 100
--- NOTE | 2021-04-22 11:58 | ED_ITS ---
HPI - Anxiety General Chief Complaint: Anxiety Stated Complaint: anxiety Time Seen by Provider: 04/22/21 11:50 History of Present Illness HPI narrative: Patient is 70 years old presented today with having anxiety. Patient denies any suicidal homicidal ideation. Patient normally takes Ativan. Is out of her medication last dose Ativan was this morning. [place] very anxious. Has no suicidal homicidal ideations. Patient's baseline is on Suboxone she has been compliant Related Data Home Medications Medication Instructions Recorded Confirmed atenolol 25 mg tablet 1 tab PO DAILY 02/03/21 02/28/21 acetaminophen 500 mg capsule 1,000 mg PO DAILY 03/01/21 03/01/21 ibuprofen 400 mg tablet 400 mg PO BID 03/01/21 03/01/21 Previous Rx's Medication Instructions Recorded buspirone 10 mg tablet 10 mg PO TID 30 Days #90 tab 02/10/21 melatonin 3 mg tablet 3 mg PO BEDTIME 30 Days #30 tab 02/10/21 lorazepam 0.5 mg tablet 0.5 mg PO BID PRN 14 Days #30 tab 02/28/21 mirtazapine 30 mg tablet (Remeron) 30 mg PO BEDTIME #30 tab 02/28/21 buprenorphine 2 mg-naloxone 0.5 mg 1 film SUBLINGUAL TID 30 Days #90 04/04/21 sublingual film ea lorazepam 0.5 mg tablet (Ativan) 0.5 mg PO TID PRN #7 tab 04/22/21 Allergies Allergy/AdvReac Type Severity Reaction Status Date / Time alendronate sodium [Fosamax] AdvReac Unknown increased Verified 04/22/21 10:56 pain antidepressants Allergy Unknown N/V Uncoded 09/28/16 00:00 Mobic Allergy Unknown eye pain Uncoded 09/28/16 00:00 Review of Systems Review of Systems: No fever no chills no cough no congestion or upper respiratory symptoms All systems reviewed otherwise negative [facility] Past Medical History Attestation statement: The following information was validated with the patient. Medical History Anxiety Chronic pain syndrome Degenerative scoliosis HLD (hyperlipidemia) HTN (hypertension) Multilevel failed back syndrome Muscle spasm of back Narrow angle glaucoma suspect of both eyes Opioid use disorder Osteoarthritis Osteoporosis Spinal arthritis Spinal stenosis Tubular adenoma of colon Surgical History H/O spinal fusion Family History Family History Father CHF (congestive heart failure) Mother CHF (congestive heart failure) Social History Social History Household Members: None Housing: House Do you presently have visiting nurse or other home services: No Alcohol intake: never Patient Tobacco Use Status: Never used Tobacco Substance Use Type: Opiates Advance Directives: No Advance Directives Information Provided: No service: No Sexual orientation: Straight/Heterosexual Physical Exam Vital Signs: Vital Signs: Last Vital Signs Temp 99.3 F 04/22/21 11:46 Pulse 69 04/22/21 11:46 Resp 16 04/22/21 11:46 BP 160/90 H 04/22/21 11:46 Pulse Ox 100 04/22/21 11:46 Body Mass Index 34.0 Appearance: Alert. Oriented X3. No acute distress. Eyes: Pupils equal, round and reactive to light. ENT: Pharynx normal. Neck: Normal inspection. Neck supple. No lymph nodes noted. No crepitus CVS: Normal heart rate and rhythm. Pulses normal. Normal S1 and S2 Respiratory: No respiratory distress. Breath sounds normal. No Wheezing. No rales Abdomen: Soft and nontender. No rigidity. No distention. good BS x4 Skin: Skin warm and dry. Normal skin color. Normal skin turgor. Extremities: No lower extremity edema. Neurovascular intact to all extremities. No Lacerations. No Rash Neuro: Oriented X 3. No motor deficit. No sensory deficit. Moving all extermities. No slurred speech. Cranial nerves grossly intact Discharge Plan Discharge Clinical Impression: Generalized anxiety disorder Patient Disposition: Home, Self-Care Instructions: Anxiety (ED) Prescriptions: New lorazepam [Ativan] 0.5 mg tablet 0.5 mg PO TID PRN (Reason: anxiety) Qty: 7 RF: 0 No Action atenolol 25 mg tablet 1 tab PO DAILY RF: 0 buspirone 10 mg Tablet 10 mg PO TID 30 Days Qty: 90 RF: 0 melatonin 3 mg Tablet 3 mg PO BEDTIME 30 Days Qty: 30 RF: 0 mirtazapine [Remeron] 30 mg tablet 30 mg PO BEDTIME Qty: 30 RF: 0 lorazepam 0.5 mg tablet 0.5 mg PO BID PRN (Reason: anxiety) 14 Days Qty: 30 RF: 1 ibuprofen 400 mg Tablet 400 mg PO BID RF: 0 acetaminophen 500 mg Capsule 1,000 mg PO DAILY RF: 0 buprenorphine-naloxone 2-0.5 mg film 1 film sublingual TID 30 Days Qty: 90 RF: 0 Referrals: Tien Gay [Primary Care Provider] - 2 days (Follow-up closely with your psychiatrist)
[2021-04-22] MEDS: LORazepam 0.5 MG TABLET PO (13:24)
--- NOTE | 2021-04-22 14:11 | MHC.CARE ---
Pt is a 70 y/o, , Zambian speaking female who is previously known to the CARE Team through prior assessments, inpatient stay, and consults.? Today, pt self-presented to the ED with a complaint of worsening anxiety, wanting to have her medications reviewed and changed.? Pt is prescribed a low dose of Ativan, 10 a month and she has taken the last one today this morning with minimal effect at controlling the anxiety.? Pt was admitted to [facility] in December/January of this year, S1 late January, completed the Partial Hospitalization Program at this facility in March of this year and has a therapist through [facility] and a psychiatrist. Pt has been medically cleared and is being assessed by the CARE Team to determine appropriate treatment recommendations. Pt is alert and oriented x4 and is assessed in her room in the behavioral health pod of the [facility] ED.? She appears her stated age, walks aided by a cane, is dressed in hospital attire, and appears neat, clean, and well groomed.? She is engaged in the assessment and is help seeking.? S\he requests a medication change which is the reason she came to the ED today.? She explains her [id number] medications are not effectively curbing her anxiety.? Her speech and eye contact are within normal limits.? She reports her sleep and appetite as normal.? Her mood is anxious; she explains her anxiety is worse in the morning.? Her affect is variable.? She denies AVH, SI, HI, , and self-harm urges.? She does not appear to be delusional or experiencing symptoms of psychosis.? Insight, judgement, memory, concentration and impulse control appear uncompromised. Pt has a day structure in place in that she sees her therapist regularly with her next appointment being on Saturday.? She is scheduled to have a phone session with her psychiatrist on 04/27 and has been advised to bring up her medication concerns to him then.? Pt attends [employer], spends time at the [employer], and has been going out to dinner/lunch with friends.? Pt reports being compliant with her medications as prescribed. Plan is for pt to be discharged home to follow up with her out patient providers.? This disposition was discussed with and agreed upon by ED attending physician Dr. Delaney, Pt?s nurse DERECK Reeves, and wildland fire operations specialist psychiatrist Dr. Reyes.
== END 2021-04-22 14:34 | disposition home or self-care (01) ==
PROVIDERS: Emergency Provider Emergency Medicine Emergency Medical Services; PCP Hospitalist
DX: F41.9 Anxiety disorder, unspecified (principal); Z79.899 Other long term (current) drug therapy; F11.90 Opioid use, unspecified, uncomplicated
CPT/HCPCS: 99283

== ENCOUNTER → 2021-05-02 13:01 | Outpatient (BNVA) | payer MEDICARE, SELFPAY | PROVIDERS: PCP Hospitalist; Visit Provider Internal Medicine | DX: F11.20 Opioid dependence, uncomplicated (principal); Z51.81 Encounter for therapeutic drug level monitoring; Z79.899 Other long term (current) drug therapy | CPT/HCPCS: 80305; 99212 ==

== ENCOUNTER → 2021-05-09 13:02 | Outpatient (BNVA) | payer MEDICARE, SELFPAY | PROVIDERS: Visit Provider Internal Medicine | DX: M96.1 Postlaminectomy syndrome, not elsewhere classified (principal); M41.80 Other forms of scoliosis, site unspecified; G89.4 Chronic pain syndrome; F11.20 Opioid dependence, uncomplicated; I10 Essential (primary) hypertension; E78.5 Hyperlipidemia, unspecified; F41.1 Generalized anxiety disorder; Z82.49 Family history of ischemic heart disease and other diseases of the circulatory system; Z88.8 Allergy status to other drugs, medicaments and biological substances; Z51.81 Encounter for therapeutic drug level monitoring | CPT/HCPCS: 80305; 99212 ==

== ENCOUNTER → 2021-05-16 14:40 | Outpatient (BNVA) | payer MEDICARE, SELFPAY | PROVIDERS: Visit Provider Internal Medicine | DX: F11.20 Opioid dependence, uncomplicated (principal); Z51.81 Encounter for therapeutic drug level monitoring; Z79.899 Other long term (current) drug therapy | CPT/HCPCS: 80305; 99212 ==

== ENCOUNTER 2024-01-01 17:45 | Emergency (ER) | payer MEDICARE, SELFPAY ==
--- NOTE | ~2024-01-01 | XR_ITS ---
EXAMINATION: XR CHEST CLINICAL INFORMATION: Resolved chest pain COMPARISON: None available. TECHNIQUE: Frontal view of the chest was obtained. FINDINGS: There is marked disc biconvex thoracolumbar scoliosis. There is mechanical fixation hardware present within the thoracic spine as well as partially visualized in the lumbar spine. A portion of the hardware in the left chest appears to be isolated. Please correlate with patient's surgical history. The right hemidiaphragm is elevated. No infiltrates, effusions or lung masses are seen. No rib fractures. XR/XR chest 1V IMPRESSION: 1. No acute intrathoracic disease. 2. Marked biconvex thoracolumbar scoliosis with mechanical fixation hardware.
[2024-01-01 18:11] VITALS: BP 136/81; PULSE 87; RESP 18; TEMP 36.8; O2SAT 95; BMI 36.1
--- NOTE | 2024-01-01 18:12 | ED_ITS ---
HPI - General Adult General Chief complaint: Anxiety Stated complaint: anxiety Time Seen by Provider: 01/01/24 19:40 Source: patient Mode of arrival: ambulatory Limitations: no limitations History of Present Illness ED Provider: Ariel Douglas PA-C HPI narrative: 73 yold female with pmh of major Depressive diorder, General anixety disorder, HTN, and opoid disorder presents to the ED for increased anxiety. Patient thinks her BuSpar is not working. Patient states having earlier anxiety like chest pain and worrying due to her living alone. Patient states she is not suicidal or homicidal. Patient denies any auditory/visual hallucinations. Related Data Home Medications ?Medication ?Instructions ?Recorded ?Confirmed atenolol 25 mg tablet 1 tab PO DAILY 02/03/21 01/02/24 acetaminophen 500 mg capsule 1,000 mg PO BID PRN Pain 03/01/21 01/02/24 buspirone 10 mg tablet 20 mg PO TID 01/02/24 01/02/24 clonidine HCl 0.1 mg tablet 0.1 mg PO TID 01/02/24 01/02/24 duloxetine 60 mg capsule,delayed 60 mg PO BEDTIME 01/02/24 01/02/24 release famotidine 20 mg tablet (Pepcid) 20 mg PO DAILY PRN Acid Reflux 01/02/24 01/02/24 ibuprofen 200 mg tablet 600 mg PO BID PRN Pain 01/02/24 01/02/24 mirtazapine 15 mg tablet 15 mg PO BEDTIME 01/02/24 01/02/24 rosuvastatin 5 mg tablet 5 mg PO BEDTIME 01/02/24 01/02/24 Previous Rx's ?Medication ?Instructions ?Recorded buprenorphine 2 mg-naloxone 0.5 mg 1 film sublingual BID 30 days #60 05/16/21 sublingual film ea Allergies Allergy/AdvReac Type Severity Reaction Status Date / Time alendronate sodium [Fosamax] AdvReac Unknown increased Verified 01/01/24 18:14 pain antidepressants Allergy Unknown N/V Uncoded 01/01/24 18:14 Mobic Allergy Unknown eye pain Uncoded 01/01/24 18:14 Review of Systems 2 Review of Systems: Anxiety Yes all other systems are reviewed and are negative PMFSH Past Medical History Medical History Anxiety Chronic pain syndrome Degenerative scoliosis HLD (hyperlipidemia) HTN (hypertension) Multilevel failed back syndrome Muscle spasm of back Narrow angle glaucoma suspect of both eyes Opioid use disorder Osteoarthritis Osteoporosis Spinal arthritis Spinal stenosis Tubular adenoma of colon Surgical History H/O spinal fusion Family History Family History Father CHF (congestive heart failure) Mother CHF (congestive heart failure) Social History Social History Household Members: None Housing: House Do you presently have visiting nurse or other home services: No Alcohol intake: never Patient Tobacco Use Status: Never used Tobacco Smoked in Last 30 Days: No Use of substances other than those prescribed or required for medical reasons: Yes Substance Use Type: Former Substance User Advance Directives: No Advance Directives Information Provided: No Do you have a plan to hurt others: No Plan service: No Sexual orientation: Straight/Heterosexual Physical Exam ED Vital Signs: Vital Signs - 24 hr 01/02/24 15:19 01/02/24 15:23 01/02/24 20:40 Temperature 98.5 F 98.0 F Pulse Rate 71 73 Respiratory Rate 18 16 Blood Pressure 124/73 124/73 120/71 Pulse Oximetry 93 94 Oxygen Delivery Method Room Air Room Air 01/02/24 22:00 01/03/24 06:18 01/03/24 08:30 Temperature 98.3 F Pulse Rate 76 74 Respiratory Rate 18 16 Blood Pressure 131/74 123/84 132/76 Pulse Oximetry 92 92 Oxygen Delivery Method Room Air Room Air 01/03/24 08:32 01/03/24 14:00 Temperature 97.7 F Pulse Rate 82 83 Respiratory Rate 18 Blood Pressure 132/76 126/79 Pulse Oximetry 93 Oxygen Delivery Method Room Air BMI result Body Mass Index 36.1 Const General: cooperative, healthy appearing, comfortable, no acute distress, well developed, alert, awake and Physically active Orientation/consciousness: oriented to time and patient oriented x3 HENMT Head: Yes No palpable skull fracture present, Yes normocephalic, Yes atraumatic and No abrasion Eyes General: appearance normal, both eyes and all related structures Neck Neck: Yes normal visual inspection, Yes full ROM, Yes no lymphadenopathy, Yes no meningeal signs, Yes trachea midline, Yes supple, No anterior neck swelling and No tender Chest Chest palpation & inspection: normal inspection of the chest and normal palpation of entire chest wall Resp Effort & Inspection: normal respiratory effort and able to speak in complete sentences Auscultation: clear to auscultation bilaterally Cardio Jugular venous distension: no JVD Heart sounds: S1 normal heart sound present and S2 normal heart sound present GI Inspection: Yes normal to inspection and No abdominal wall ecchymosis Palpation (GI): Soft to palpation, not firm, nontender, no guarding and not rigid General: No CVA tenderness and Yes no CVA tenderness Back/Spine/Pelvis Back: no CVA tenderness, No CVA tenderness and No back tenderness Skin General skin exam: no rashes or lesions noted, elasticity normal and turgor normal Neuro General: oriented to time, patient oriented x3, gait normal, tone normal, moves all extremities, Normal light touch and pain sensation, no meningeal signs, no focal motor deficits, CN's II-XI intact bilaterally and normal sensation to monofilament Extrem Other: Bilateral lower extremity negative for swelling, pitting edema, or calf tendneress General: Yes normal to inspection, Yes full ROM and Yes capillary refill normal Psych Appearance: grossly normal, well kempt and not disheveled Course Course Course Narrative: This is a rapid medical exam performed by Briana Rodgers NP: Additional HPI, ROS, PE not included below will be deferred to primary provider. Patient is a 73-year-old female with history of MDD, JERRI, panic disorder with agoraphobia, opioid use disorder currently on suboxone presenting to the emergency department with complaint of anxiety since this morning. Reports history of same. Currently on Buspar but states it's not working. Denies suicidal or homicidal ideation. Went to visit an assisted living facility today, feels like this triggered her anxiety today. Plan: med clearance, then CARE team angela 01/03/24--12:10--physician observation continued. Labs reviewed. CARE team evaluated patient and recommended inpatient bed search. Patient is on section 12. Will continue to monitor Reevaluation(s) Reevaluation #1: observation care revealed that the patient does meet psychiatric necessity for hospitalization. final disposition discussed with the patient. The patient completed observation care at 430pm. Transfer to [facility] 01/03/24 Medications Administered Generic Name Dose Route Start Last Admin Trade Name Reuben PRN Reason Stop Dose Admin Acetaminophen 975 mg 01/02/24 10:53 01/03/24 03:22 Acetaminophen 325 Mg Tablet PO 975 mg BID PRN Administration mild pain Atenolol 25 mg 01/02/24 10:45 01/03/24 08:32 Atenolol 25 Mg Tablet PO 25 mg DAILY HAROON Administration Protocol Atorvastatin Calcium 20 mg 01/02/24 21:00 01/02/24 20:42 Atorvastatin Calcium 20 Mg Tablet PO 20 mg BEDTIME HAROON Administration Buprenorphine/Naloxone 1 film 01/02/24 10:45 01/03/24 08:32 Buprenorphine/Naloxone 2/0.5mg Film SUBLINGUAL 1 film BID HAROON Administration Buspirone HCl 20 mg 01/02/24 10:45 01/03/24 08:32 Buspirone Hcl 10 Mg Tablet PO 20 mg TID HAROON Administration Clonidine HCl 0.1 mg 01/02/24 10:45 01/03/24 08:30 Clonidine Hcl 0.1 Mg Tablet PO 0.1 mg TID HAROON Administration Protocol Duloxetine HCl 60 mg 01/02/24 21:00 01/02/24 20:42 Duloxetine Hcl 60 Mg Capsule.Dr PO 60 mg BEDTIME HAROON Administration Ibuprofen 600 mg 01/02/24 10:37 01/03/24 02:19 Ibuprofen 600 Mg Tablet PO 600 mg BID PRN Administration moderate pain Mirtazapine 15 mg 01/02/24 21:00 01/02/24 20:42 Mirtazapine 15 Mg Tablet PO 15 mg BEDTIME HAROON Administration Discontinued Medications Generic Name Dose Route Start Last Admin Trade Name Reuben PRN Reason Stop Dose Admin Magnesium Hydroxide 15 ml 01/03/24 08:18 01/03/24 08:32 Milk Of Magnesia 30 Ml Oral.Susp PO 01/03/24 08:19 15 ml ONCE ONE Administration Medical Decision Making Medical Decision Making MDM Narrative: 73-year-old female with increased anxiety. Patient denies any shortness of breath. Patient denies any trauma or URI symptoms. Due to age for do EKG and. Care team consult placed 2:20am: EKG negative STEMI. two troponins negative. Chest xray is normal. She is evaluated by care team consulted who recommends patient be inpatient psych bed searched for geriatrics. Patient is placed on section 12. patient is medically cleared. Differential Diagnosis Differential Diagnoses: The differential diagnosis associated with the presentation includes (Anxiety) Admission/Observation Consideration of admission/observation: Escalation of care including admission/observation considered Consult Healthcare Provider Management of the patient was discussed with: [employer] (Care Team) Lab Data [facility] Lab Attestation statement: I reviewed the patient's lab results. 01/01/24 18:25 01/01/24 18:25 Labs: Lab Results 01/01/24 01/01/24 01/01/24 Range/Units 18:25 21:24 23:01 WBC 4.6 L (4.8-10.8) X10*3/uL RBC 4.36 (4.20-5.50) X10*6/uL Hgb 13.2 (12.0-16.0) g/dl Hct 38.2 (37.0-47.0) % MCV 87.6 (80.0-98.0) fL MCH 30.3 (27.0-33.0) pg MCHC 34.6 (31.0-35.0) g/dl RDW 13.2 (11.0-16.0) % Plt Count 186 (160-400) X10*3/uL MPV 9.1 L (9.4-12.3) fL Immature Gran % (Auto) 0.2 (0.0-0.4) % Neut % (Auto) 58.6 (45-73) % Lymph % (Auto) 31.4 (20-40) % [place] % (Auto) 7.9 (2-11) % Eos % (Auto) 1.5 (0-4) % Baso % (Auto) 0.4 (0-2) % Lymph # (Auto) 1.4 (1.2-4.9) X10*3/uL [place] # (Auto) 0.4 (0.1-1.2) X10*3/uL Eos # (Auto) 0.1 (0.0-0.4) X10*3/uL Baso # (Auto) 0.0 (0.0-0.2) X10*3/uL Abs Immat Gran (auto) 0.01 (0.00-0.03) X10*3/uL Absolute Neuts (auto) 2.7 (2.0-8.3) x10*3/uL Absolute Nucleated RBC 0.000 (0.0-0.012) X10*3/uL Nucleated RBC % (auto) 0.0 (0.0-0.2) /100WBC PT 10.6 L (11.1-13.3) SEC INR 0.9 (0.9-1.1) APTT 32.0 (26.0-36.8) SEC Sodium 142 (135-145) mmol/L Potassium 4.1 (3.3-5.1) mmol/L Chloride 105 (96-108) mmol/L Carbon Dioxide 27 (22-29) mmol/L Anion Gap 14 (12-20) BUN 14 (9-16) mg/dL Creatinine 0.74 (0.5-1.4) mg/dL Estim Creat Clear Calc 68.7 Estimated GFR > 60 Random Glucose 115 (60-115) mg/dL Calcium 8.9 (8.4-10.2) mg/dL Total Bilirubin 0.6 (0.0-1.0) mg/dL AST 32 H (5-31) U/L ALT 27 (0-31) U/L Alkaline Phosphatase 125 H (39-117) U/L Troponin I High Sens < 2.7 (<3.5-17.0) ng/L B-Natriuretic Peptide 13 (<100) pg/mL Total Protein 6.8 (6.5-8.0) g/dL Albumin 4.1 (3.5-5.0) g/dL Urine Color Yellow Urine Appearance Clear Urine pH 7.0 (5.0-9.0) Ur Specific [place] 1.015 (1.005-1.025) Urine Protein Negative (Neg-Trace) mg/dL Urine Glucose (UA) Negative (Negative) mg/dL Urine Ketones Negative (Negative) mg/dL Urine Blood Negative (Negative) Urine Nitrite Negative (Negative) Ur Leukocyte Esterase Small (1+) H (Negative) Urine RBC 0-2 (0-2) /HPF Urine WBC 0-5 (0-5) /HPF Ur Squamous Epith Cells 0-2 (0-2) /HPF Urine Bacteria None Seen (None Seen) Hyaline Casts 0-2 (0-2) /LPF Urine Opiates Screen Not Detected (Not Detect) Ur Buprenorphine Scrn Positive H (Not Detect) ng/mL Ur Oxycodone Screen Not Detected (Not Detect) ng/mL Urine Methadone Screen Not Detected (Not Detect) ng/mL Urine Fentanyl Screen Not Detected (Not Detect) Ur Barbiturates Screen Not Detected (Not Detect) Ur Phencyclidine Scrn Not Detected (Not Detect) Ur Amphetamines Screen Not Detected (Not Detect) U Benzodiazepines Scrn Not Detected (Not Detect) Urine Cocaine Screen Not Detected (Not Detect) U Marijuana (THC) Screen Not Detected (Not Detect) Ethyl Alcohol < 10 mg/dL COVID-19 (TAHIRA) (Negative) COVID-19 Clin Com 01/02/24 01/03/24 Range/Units 01:47 12:03 WBC (4.8-10.8) X10*3/uL RBC (4.20-5.50) X10*6/uL Hgb (12.0-16.0) g/dl Hct (37.0-47.0) % MCV (80.0-98.0) fL MCH (27.0-33.0) pg MCHC (31.0-35.0) g/dl RDW (11.0-16.0) % Plt Count (160-400) X10*3/uL MPV (9.4-12.3) fL Immature Gran % (Auto) (0.0-0.4) % Neut % (Auto) (45-73) % Lymph % (Auto) (20-40) % [place] % (Auto) (2-11) % Eos % (Auto) (0-4) % Baso % (Auto) (0-2) % Lymph # (Auto) (1.2-4.9) X10*3/uL [place] # (Auto) (0.1-1.2) X10*3/uL Eos # (Auto) (0.0-0.4) X10*3/uL Baso # (Auto) (0.0-0.2) X10*3/uL Abs Immat Gran (auto) (0.00-0.03) X10*3/uL Absolute Neuts (auto) (2.0-8.3) x10*3/uL Absolute Nucleated RBC (0.0-0.012) X10*3/uL Nucleated RBC % (auto) (0.0-0.2) /100WBC PT (11.1-13.3) SEC INR (0.9-1.1) APTT (26.0-36.8) SEC Sodium (135-145) mmol/L Potassium (3.3-5.1) mmol/L Chloride (96-108) mmol/L Carbon Dioxide (22-29) mmol/L Anion Gap (12-20) BUN (9-16) mg/dL Creatinine (0.5-1.4) mg/dL Estim Creat Clear Calc Estimated GFR Random Glucose (60-115) mg/dL Calcium (8.4-10.2) mg/dL Total Bilirubin (0.0-1.0) mg/dL AST (5-31) U/L ALT (0-31) U/L Alkaline Phosphatase (39-117) U/L Troponin I High Sens < 2.7 (<3.5-17.0) ng/L B-Natriuretic Peptide (<100) pg/mL Total Protein (6.5-8.0) g/dL Albumin (3.5-5.0) g/dL Urine Color Urine Appearance Urine pH (5.0-9.0) Ur Specific [place] (1.005-1.025) Urine Protein (Neg-Trace) mg/dL Urine Glucose (UA) (Negative) mg/dL Urine Ketones (Negative) mg/dL Urine Blood (Negative) Urine Nitrite (Negative) Ur Leukocyte Esterase (Negative) Urine RBC (0-2) /HPF Urine WBC (0-5) /HPF Ur Squamous Epith Cells (0-2) /HPF Urine Bacteria (None Seen) Hyaline Casts (0-2) /LPF Urine Opiates Screen (Not Detect) Ur Buprenorphine Scrn (Not Detect) ng/mL Ur Oxycodone Screen (Not Detect) ng/mL Urine Methadone Screen (Not Detect) ng/mL Urine Fentanyl Screen (Not Detect) Ur Barbiturates Screen (Not Detect) Ur Phencyclidine Scrn (Not Detect) Ur Amphetamines Screen (Not Detect) U Benzodiazepines Scrn (Not Detect) Urine Cocaine Screen (Not Detect) U Marijuana (THC) Screen (Not Detect) Ethyl Alcohol mg/dL COVID-19 (TAHIRA) Negative (Negative) COVID-19 Clin Com See Note Independent Interpretation I performed an independent interpretation of an: EKG (Negative STEMI) and Plain X-Ray Radiology Impression Discussion of test interpretation with radiology: I have reviewed the radiologist's reading. Independent Historian Clinical information obtained from an independent historian. History obtained from or confirmed by: Other (patient) External Record Review External record reviewed: Other (prior visits.) Discharge Plan Discharge Clinical Impression: Acute anxiety Patient Disposition: Xfer Psychiatric Hosp Transfer Details: [facility] Prescriptions: No Action atenolol 25 mg tablet 1 tab PO DAILY acetaminophen 500 mg Capsule 1,000 mg PO BID PRN (Reason: Pain) Patient Comments: Patient takes OTC for pain clonidine HCl 0.1 mg tablet 0.1 mg PO TID rosuvastatin 5 mg tablet 5 mg PO BEDTIME duloxetine 60 mg capsule,delayed release(DR/EC) 60 mg PO BEDTIME ibuprofen 200 mg Tablet 600 mg PO BID PRN (Reason: Pain) mirtazapine 15 mg tablet 15 mg PO BEDTIME buspirone 10 mg tablet 20 mg PO TID famotidine [Pepcid] 20 mg Tablet 20 mg PO DAILY PRN (Reason: Acid Reflux) buprenorphine-naloxone 2-0.5 mg film 1 film sublingual BID 30 Days Qty: 60 0RF Print Language: Greek
[2024-01-01 18:29] LABS: MANUAL DIFF FLAG NO
[2024-01-01 18:31] LABS: Basophils Percent Auto 0.4 % (0-2); Eosinophils Absolute Auto 0.1 X10*3/uL (0.0-0.4); Eosinophils Percent Auto 1.5 % (0-4); Hematocrit 38.2 % (37.0-47.0); Hemoglobin 13.2 g/dl (12.0-16.0); Imm Gran Abs Auto 0.01 X10*3/uL (0.00-0.03); Imm Gran Pct Auto 0.2 % (0.0-0.4); Lymphocytes Absolute Auto 1.4 X10*3/uL (1.2-4.9); Lymphocytes Percent Auto 31.4 % (20-40); Mean Corpuscular HGB Conc 34.6 g/dl (31.0-35.0); Mean Corpuscular Hemoglobin 30.3 pg (27.0-33.0); Mean Corpuscular Volume 87.6 fL (80.0-98.0); Mean Platelet Volume 9.1 fL (9.4-12.3); Monocytes Absolute Auto 0.4 X10*3/uL (0.1-1.2); Monocytes Percent Auto 7.9 % (2-11); Neutrophils Absolute Auto 2.7 x10*3/uL (2.0-8.3); Neutrophils Percent Auto 58.6 % (45-73); Platelet Count 186 X10*3/uL (160-400); Red Blood Count 4.36 X10*6/uL (4.20-5.50); Red Cell Distribution Width 13.2 % (11.0-16.0); White Blood Count 4.6 X10*3/uL (4.8-10.8)
[2024-01-01 18:49] LABS: Alanine Aminotransferase 27 U/L (0-31); Albumin Level 4.1 g/dL (3.5-5.0); Alkaline Phosphatase 125 U/L (39-117); Anion Gap 14 (12-20); Aspartate Amino Transferase 32 U/L (5-31); Bilirubin Total 0.6 mg/dL (0.0-1.0); Blood Urea Nitrogen 14 mg/dL (9-16); Calcium 8.9 mg/dL (8.4-10.2); Carbon Dioxide 27 mmol/L (22-29); Chloride 105 mmol/L (96-108); Creatinine Clr Calc Pharmacy 68.7; Estimated Glomerular Filt Rate > 60; Ethanol < 10 mg/dL; Glucose Random 115 mg/dL (60-115); Potassium 4.1 mmol/L (3.3-5.1); Sodium 142 mmol/L (135-145); Total Protein 6.8 g/dL (6.5-8.0)
[2024-01-01 19:10] VITALS: BP 125/72; PULSE 83; RESP 18; TEMP 36.3; O2SAT 92
[2024-01-01 20:11] VITALS: BP 120/69; PULSE 76; RESP 16; TEMP 36.8; O2SAT 94
--- NOTE | 2024-01-01 20:17 | PC.NURSE ---
Provider to bedside for primary eval.
--- NOTE | 2024-01-01 20:20 | ECG_ITS ---
Test Reason : ANXIETY Blood Pressure : / mmHG Vent. Rate : 074 BPM Atrial Rate : 074 BPM P-R Int : 216 ms QRS Dur : 080 ms QT Int : 404 ms P-R-T Axes : 037 -05 017 degrees QTc Int : 448 ms Sinus rhythm with 1st degree A-V block Inferior infarct , age undetermined Abnormal ECG When compared with ECG of 02-FEB-2021 18:51, No significant change was found Referred By: Ariel Douglas Electronically Signed By:ABIEL MURRAY
[2024-01-01 21:49] LABS: INTERNATIONAL NORM RATIO 0.9 (0.9-1.1); Prothrombin Time 10.6 SEC (11.1-13.3)
[2024-01-01 22:09] LABS: B Type Natriuretic Peptide 13 pg/mL (<100)
--- NOTE | 2024-01-01 22:09 | PC.NURSE ---
Pt resting comfortably, NAD, awaiting lab results and MD reeval, aware of plan of care.
[2024-01-01 22:13] LABS: Troponin-I High Sensitivity < 2.7 ng/L (<3.5-17.0)
--- NOTE | 2024-01-01 22:44 | PC.NURSE ---
Pt medically cleared, awaiting care team consult.
[2024-01-01 23:09] LABS: Appearance Urine Clear; Color Urine Yellow; Glucose Urine UA Negative (Negative); Leukocyte Esterase Urine Small (1+) (Negative); Nitrite Urine Negative (Negative); Specific Gravity - Urine 1.015 (1.005-1.025); UMIC TRIGGER UACC YES; Urine Blood Negative (Negative); Urine Ketones Negative (Negative); Urine Protein Negative (Neg-Trace)
[2024-01-01 23:17] LABS: Amphetamine Screen Urine Not Detected (Not Detect); Barbiturates, Urine Not Detected (Not Detect); Benzodiazepines Screen Urine Not Detected (Not Detect); Buprenorphine Scr Positive (Not Detect); Cannabinoid Screen Urine Not Detected (Not Detect); Cocaine Screen Urine Not Detected (Not Detect); Fentanyl, urine Not Detected (Not Detect); Methadone Screen, Urine Not Detected (Not Detect); Opiate Screen Urine Not Detected (Not Detect); Oxycodone Screen Urine Not Detected (Not Detect); Phencyclidine Screen Urine Not Detected (Not Detect)
[2024-01-01 23:22] LABS: Bacteria Urine None Seen (None Seen); Hyaline Casts Urine 0-2 /LPF (0-2); RBC Urine 0-2 /HPF (0-2); Squamous Epithelial Cell Urine 0-2 /HPF (0-2); UACC Culture Trigger YES; WBC Urine 0-5 /HPF (0-5)
[2024-01-02] VITALS (7 sets, daily range): BP systolic 120–149; BP diastolic 71–97; PULSE 71–88; RESP 16–18; TEMP 36.7–36.9; O2SAT 92–94
--- NOTE | 2024-01-02 01:22 | PC.NURSE ---
PT HAS HOME MEDS WITH SELF UNCONTROLLED MEDS LOCKED UP WITH REST OF BELONGINGS. CONTROLLED MED ATIVAN COUNTED AND WITNESSED BY THIS RN AND DEBT RECOVERY OFFICER PLACED IN PHARMACY BAG AND WILL BE BROUGHT TO PHARMACY.
--- NOTE | 2024-01-02 01:54 | MHC.EDTECH ---
pt ambulated to the bathroom with 1 assist.
[2024-01-02 02:15] LABS: Troponin-I High Sensitivity < 2.7 ng/L (<3.5-17.0)
--- NOTE | 2024-01-02 09:57 | PHA.MEDREC ---
Pharmacy Consult ? Medication Reconciliation Pharmacy has completed the medication reconciliation. Spoke to patient to confirm med list. Patient states she is not taking Lorazepam 0.5 mg tid and Melatonin 3 mg at bedtime. Patient confirmed she takes Buprenorphine 2 mg -Naloxone 0.5 mg subligual 1 film bid, Mirtazapine 15 mg at bedtime.
[2024-01-02] MEDS: busPIRone HCl 10 MG TABLET 20 MG PO ×3 (10:58→20:42)
[2024-01-02] MEDS: cloNIDine HCL 0.1 MG TABLET PO ×3 (10:59→20:42)
[2024-01-02] MEDS: atenoloL 25 MG TABLET PO (11:01)
[2024-01-02] MEDS: Buprenorphine/Naloxone 2/0.5mg FILM 1 FILM SUBLINGUAL ×2 (11:01→20:45)
--- NOTE | 2024-01-02 13:24 | MHC.CARE ---
The RAD Team conducted a statewide [place] bed search today. [facility], [place], [facility], [facility], [facility], [facility], [facility],[place] and [place] were all full. The bed search will resume in the morning if deemed necessary.
[2024-01-02] MEDS: Acetaminophen 325 MG TABLET 975 MG PO (15:22)
[2024-01-02] MEDS: Atorvastatin Calcium 20 MG TABLET PO (20:42)
[2024-01-02] MEDS: Mirtazapine 15 MG TABLET PO (20:42)
[2024-01-02] MEDS: DULoxetine HCl 60 MG CAPSULE.DR PO (20:42)
[2024-01-03] MEDS: Ibuprofen 600 MG TABLET PO (02:19)
[2024-01-03] MEDS: Acetaminophen 325 MG TABLET 975 MG PO ×2 (03:22→15:04)
[2024-01-03 06:18] VITALS: BP 123/84; PULSE 74; RESP 16; O2SAT 92
--- NOTE | 2024-01-03 07:37 | PC.NURSE ---
report recieved from previous RN, patient resting comfortably on stretcher at this time, not offering any complaints at this time, sitter remains at bedside, awaiting bed placement
[2024-01-03 08:30] VITALS: BP 132/76
[2024-01-03] MEDS: cloNIDine HCL 0.1 MG TABLET PO ×2 (08:30→14:41)
[2024-01-03 08:32] VITALS: BP 132/76; PULSE 82
[2024-01-03] MEDS: busPIRone HCl 10 MG TABLET 20 MG PO ×2 (08:32→14:41)
[2024-01-03] MEDS: Buprenorphine/Naloxone 2/0.5mg FILM 1 FILM SUBLINGUAL (08:32)
[2024-01-03] MEDS: atenoloL 25 MG TABLET PO (08:32)
[2024-01-03] MEDS: Milk of Magnesia 30 ML ORAL.SUSP 15 ML PO (08:32)
[2024-01-03 12:26] LABS: COVID-19 Test Negative (Negative); IDNOW Serial# 58CA691E
--- NOTE | 2024-01-03 13:17 | MHC.CARE ---
Patient Placement has been accepted to [facility] @ [address] [place] [id number] Accepting provider is Dr. Jordyn WHITE for [facility]. ED personal secretary notified to book transport and CARE Team notified as well.
--- NOTE | 2024-01-03 13:24 | PC.NURSE ---
RN to RN report given to rosio
--- NOTE | 2024-01-03 13:47 | MHC.CARE ---
Section 12 for transport is in chart
--- NOTE | 2024-01-03 13:51 | MHC.EDTECH ---
This tech answered call johnson. Patient requesting phone to call son. Provided patient with phone and asked her to ring her johnson when she was finished with her call. Patient expresses understanding.
[2024-01-03 14:00] VITALS: BP 126/79; PULSE 83; RESP 18; TEMP 36.5; O2SAT 93
--- NOTE | 2024-01-03 14:08 | PC.NURSE ---
ambulance booked for patient to go to [place], patient resistant to go at this time, requesting to speak with someone regarding placement, when this RN stated where patient is going patient states we'll see about that, i would rather go home and call my normal doctor, i want to go to the floor not [place]. educated patient that there are no beds and this is where we were able to get her placed, also educated patient that she is unable to leave at this time. care team contacted.
[2024-01-03 14:41] VITALS: BP 142/82
--- NOTE | 2024-01-03 14:50 | PC.NURSE ---
care team in room to speak with patient, patient agreeable at this time to go to [place]. son updated on plan of care by care team, patient resting comfortably, medicated per MAR, offering no complaints at this time, ambulance booked for 1630
== END 2024-01-03 17:24 ==
PROVIDERS: Physician Assistant; Registered Nurse Emergency; Emergency Provider Internal Medicine; PCP Nurse Practitioner Family
DX: F41.9 Anxiety disorder, unspecified (principal); R07.9 Chest pain, unspecified; F32.9 Major depressive disorder, single episode, unspecified; F41.0 Panic disorder [episodic paroxysmal anxiety]; I10 Essential (primary) hypertension; E78.5 Hyperlipidemia, unspecified; F11.20 Opioid dependence, uncomplicated; Z11.52 Encounter for screening for COVID-19; Z79.899 Other long term (current) drug therapy; Z79.02 Long term (current) use of antithrombotics/antiplatelets
CPT/HCPCS: 36415; 71045; 80053; 80307; 81001; 83880; 84484; 85025; 85610; 85730; 87086; 87635; 93005; 99285; S9485

== ENCOUNTER → 2024-01-01 20:20 | Outpatient (BNV) | payer MEDICARE, SELFPAY | PROVIDERS: Emergency Provider Internal Medicine; PCP Nurse Practitioner Family; Visit Provider Internal Medicine | DX: I44.0 Atrioventricular block, first degree (principal); R94.31 Abnormal electrocardiogram [ECG] [EKG] | CPT/HCPCS: 93010 ==